=== PATIENT | male | born 1945 | race American Indian/Alaskan Native ===

== ENCOUNTER 2018-11-26 15:33 | Inpatient (IN) | payer OTHER ==
[2018-11-26 16:59] LABS: Hematocrit 42.5 % (35.5-45.6); Hemoglobin 14.6 gm/dl (11.8-15.2); Mean Corpuscular HGB Conc 34 % (32-34); Mean Corpuscular Volume 88 fl (84-94); Platelet Count 178 K/mm3 (140-440); Red Blood Count 4.81 M/mm3 (3.65-5.03); Red Cell Distribution Width 13.6 % (13.2-15.2)
[2018-11-26 17:24] LABS: Albumin 2.9 g/dL (3.9-5); Calcium 8.6 mg/dL (8.4-10.2)
--- NOTE | 2018-11-26 17:34 | Emergency Department Report ---
ED Abdominal Pain HPI - General Chief Complaint: Abdominal Pain Stated Complaint: ABDOMINAL PROBLEMS Time Seen by Provider: 11/26/18 16:25 Source: patient, family, old records reviewed (no previous record) Mode of arrival: Ambulatory Limitations: No Limitations - History of Present Illness Initial Comments: 73-year-old male with no known past medical history but he cannot remember the last time he has seen a doctor because he has "not been sick". He has had a swelling to his right lower quadrant for over one year. The last 2-3 weeks he is having worsening right lower quadrant pain that seems to be spreading to the left side. Patient states he is pain-free at this time and he is unable to elicit pain by movement or palpation. He denies nausea, vomiting, or fever. - Related Data Home Medications Medication Instructions Recorded Confirmed Last Taken No Known Home Medications [No 11/26/18 11/26/18 Unknown Reported Home Medications] Allergies Allergy/AdvReac Type Severity Reaction Status Date / Time No Known Allergies Allergy Unverified 11/26/18 15:35 ED Review of Systems ROS: Stated complaint: ABDOMINAL PROBLEMS Other details as noted in HPI Comment: All other systems reviewed and negative ED Past Medical Hx - Past Medical History Previous Medical History?: No - Surgical History Past Surgical History?: No - Social History Smoking Status: Never Smoker Substance Use Type: None - Medications Home Medications: Home Medications Medication Instructions Recorded Confirmed Last Taken Type No Known Home Medications [No 11/26/18 11/26/18 Unknown History Reported Home Medications] ED Physical Exam - General Limitations: No Limitations - Other Other exam information: General: No limitations, patient is alert in no acute distress Head exam: Atraumatic, normocephalic Eyes exam: Normal appearance ENT: Moist mucous membrane, normal oropharynx Neck exam: Normal inspection Respiratory exam: Clear to auscultation bilateral, no wheezes, rales, crackles Cardiovascular: Normal rate and rhythm, normal heart sounds Abdomen: Soft, nondistended, right inguinal hernia that is reducible and nontender to palpation, with normal bowel sounds, no rebound, or guarding Extremity: Full range of motion normal inspection no deformity Back: Normal Inspection, full range of motion, no tenderness Neurologic: Alert, oriented x3, cranial nerves intact, no motor or sensory deficit Psychiatric: normal affect, normal mood Skin: Warm, dry, intact ED Course Vital Signs 06/11/26/18 11/26/18 15:38 17:35 18:56 Temperature 97.9 F Pulse Rate 89 80 Respiratory 14 21 Rate Blood Pressure 138/93 168/77 [Left] O2 Sat by Pulse 98 100 100 Oximetry - Reevaluation(s) Reevaluation #1: 11/26/18 17:32 Patient has a reducible right inguinal hernia which was reduced prior to CT scan. However, hernia reoccurs when pressure is released. We are still awaiting urine collection. I reviewed CT and patient has a persistent inguinal hernia and appears to have a distended bladder. Patient continues to deny the supra pubic pain or feeling like he has to urinate. When questioned patient states he last urinated 2-3 days ago. Also noticed that patient has renal failure with elevated creatinine. There is instructed to place [facility] and documented urine output. Official CT report is pending. - Consultations Consultation #1: 11/26/18 18:25 case d/w Nephrology Dr Al. Consult ordered, will evaluate patient 11/26/18 18:30 case d/w Dr Meyer, informed pt to admitted, hernia appears reducible with residual fat herniation after Ed reduction attempt. Inhouse consult ordered. 11/26/18 18:31 Consult ordered for [facility] urology (Dr Doty's name place). Assess full placement of coud catheter with both obstructive diuresis. In-house consultation can be provided. Case was not discussed with [facility] in the ED ED Medical Decision Making - Lab Data Result diagrams: 11/26/18 16:45 11/26/18 16:45 - EKG Data -: EKG Interpreted by [facility] EKG shows normal: sinus rhythm Rate: normal - Radiology Data Radiology results: report reviewed PROCEDURE: CT ABDOMEN PELVIS WO CON TECHNIQUE: Computerized axial tomography of the abdomen and pelvis was performed without intravenous contrast. This study is performed without intravascular contrast material and its sensitivity for abdominal and pelvic pathology, including neoplasms, inflammation, abscess, free fluid, thrombosis, arterial dissection and infarction, is reduced compared with a contrast enhanced study. CT DOSE LENGTH PRODUCT: 945.4 mGycm HISTORY: right inguinal hernia COMPARISONS: None . FINDINGS: Visualized lower thorax: No significant abnormality. Liver: Normal size and attenuation. Spleen: Normal size and attenuation. Gallbladder and biliary system: Gallbladder is present. Pancreas: Normal. Adrenals: Normal. Kidneys: There is bilateral hydroureteronephrosis. Bilateral punctate renal calculi are present, measuring up to 2 mm in the right kidney and 5 mm in the left kidney. There is a 5 mm calculus in th e distal left ureter. GI tract: Moderate volume of stool seen throughout the colon. No bowel obstruction or acute inflammation. Lymph nodes and mesentery: Normal. Vasculature: Aortic atherosclerotic calcification. Bladder: Urinary bladder is significantly distended. Correlate for possible urinary bladder obstruction. Reproductive organs: Prostate gland measures up to 5.5 cm transverse. Peritoneum: No free fluid. Musculoskeletal structures: There are multilevel degenerative disc changes throughout the lumbar spine, particularly at L5-S1. There is depression of the superior endplate of L4, with linear lucency through the superior cortex, which may be acute. No displaced or retropulsed fragments are seen. Other: Right inguinal hernia containing mesenteric fat and a small amount of fluid. IMPRESSION: There is a right inguinal hernia, containing mesenteric fat and a small amount of fluid. Bilateral hydroureteronephrosis and bilateral renal calculi. 5 mm calculus in the distal left ureter. Urinary bladder is distended. Correlate for bladder outlet obstruction. Prostate gland appears prominent. Compression fracture involving the superior endplate of L4 may be acute. - Medical Decision Making pt likely has renal failure secondary to postobstructive uropathy. CT shows bilateral hydronephrosis and a large prostate and distended bladder and a left ureteral calculus. Patient does not have any signs or symptoms of renal colic at this time. Difficulty passing initial catheter but successful placement of a coud catheter. 2 L of initial urine output. Patient received albuterol, calcium, insulin, glucose, and sodium bicarbonate for hyperkalemia. 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 Chronic right able to hernia appears to be reducible without signs of obstruction at this time. In-house cons ultation with urology has been ordered. Hospitalist and foreign for admission. - Differential Diagnosis hernia, urinary obstruction Critical Care Time: No Critical care attestation.: If time is entered above; I have spent that time in minutes in the direct care of this critically ill patient, excluding procedure time. ED Disposition Clinical Impression: Obstructive uropathy, Urinary retention, Acute renal failure, Enlarged prostate, Left ureteral stone, Bilateral renal stones, Uremia, Hyperkalemia, Right inguinal hernia Disposition: -09 OP ADMIT IP TO THIS HOSP Is pt being admited?: Yes Condition: Stable Referrals: ELMIRA OSBORN MD [Primary Care Provider] - 3-5 Days Time of Disposition: 18:48 (Dr. Montenegro/hospitalist)
[2018-11-26] MEDS ORDERED: HumuLIN R IV ONE (17:52)
[2018-11-26] MEDS ORDERED: PROVENTIL IH ONE (17:53)
[2018-11-26] MEDS ORDERED: CALCIUM GLUCONATE 1,000 MG in NACL 0.9% 100 ML IV ONE (17:53)
[2018-11-26] MEDS ORDERED: D50W (25GM) Syringe IV ONE (18:00)
--- NOTE | 2018-11-26 18:10 | Cat Scan Report ---
PROCEDURE: CT ABDOMEN PELVIS WO CON TECHNIQUE: Computerized axial tomography of the abdomen and pelvis was performed without intravenous contrast. This study is performed without intravascular contrast material and its sensitivity for ab dominal and pelvic pathology, including neoplasms, inflammation, abscess, free fluid, thrombosis, art erial dissection and infarction, is reduced compared with a contrast enhanced study. CT DOSE LENGTH PRODUCT: 945.4 mGycm HISTORY: right inguinal hernia COMPARISONS: None . FINDINGS: Visualized lower thorax: No significant abnormality. Liver: Normal size and attenuation. Spleen: Normal size and attenuation. Gallbladder and biliary system: Gallbladder is present. Pancreas: Normal. Adrenals: Normal. Kidneys: There is bilateral hydroureteronephrosis. Bilateral punctate renal calculi are present, sienna uring up to 2 mm in the right kidney and 5 mm in the left kidney. There is a 5 mm calculus in the dis tamanna left ureter. GI tract: Moderate volume of stool seen throughout the colon. No bowel obstruction or acute inflamma tion. Lymph nodes and mesentery: Normal. Vasculature: Aortic atherosclerotic calcification. Bladder: Urinary bladder is significantly distended. Correlate for possible urinary bladder obstructi on. Reproductive organs: Prostate gland measures up to 5.5 cm transverse. Peritoneum: No free fluid. Musculoskeletal structures: There are multilevel degenerative disc changes throughout the lumbar spin e, particularly at L5-S1. There is depression of the superior endplate of L4, with linear lucency thr ough the superior cortex, which may be acute. No displaced or retropulsed fragments are seen. Other: Right inguinal hernia containing mesenteric fat and a small amount of fluid. IMPRESSION: There is a right inguinal hernia, containing mesenteric fat and a small amount of fluid. Bilateral hydroureteronephrosis and bilateral renal calculi. 5 mm calculus in the distal left ureter. Urinary bladder is distended. Correlate for bladder outlet obstruction. Prostate gland appears promi nent. Compression fracture involving the superior endplate of L4 may be acute. This document is electronically signed by Eloise Townsend MD., November 26 2018 06:08:27 PM ET
[2018-11-26 19:29] LABS: Bilirubin,Urine NEG (Negative); Blood,Urine MOD (Negative); Color,Urine Yellow (Yellow); Mucus,Urine FEW /HPF; Protein,Urine <15 mg/dL mg/dL (Negative); Urobilinogen,Urine < 2.0 mg/dL (<2.0)
[2018-11-26 19:31] LABS: WBC,Urine > 182.0 /HPF (0.0-6.0)
[2018-11-26] MEDS ORDERED: SODIUM CHLORIDE FLUSH SYRINGE 10 ML IV PRN (21:36)
[2018-11-26] MEDS ORDERED: ZOFRAN IV PRN (21:36)
[2018-11-26] MEDS ORDERED: TYLENOL PO PRN (21:36)
[2018-11-26] MEDS ORDERED: MORPHINE IV PRN (21:36)
--- NOTE | 2018-11-26 21:36 | History and Physical Report ---
History of Present Illness Date of examination: 11/26/18 Date of admission: 11/26/18 19:10 Medications and Allergies Allergies Allergy/AdvReac Type Severity Reaction Status Date / Time No Known Allergies Allergy Unverified 11/26/18 15:35 Home Medications Medication Instructions Recorded Confirmed Last Taken Type No Known Home Medications [No 11/26/18 11/26/18 Unknown History Reported Home Medications] Exam - Constitutional Vitals: Temp Pulse Resp BP Pulse Ox 97.9 F 80 21 168/77 100 11/26/18 15:38 11/26/18 17:35 11/26/18 17:35 11/26/18 17:35 11/26/18 18:56 Results - Labs CBC & Chem 7: 11/26/18 16:45 11/26/18 16:45 Labs: Laboratory Last Values WBC 7.6 K/mm3 (4.5-11.0) 11/26/18 16:45 RBC 4.81 M/mm3 (3.65-5.03) 11/26/18 16:45 Hgb 14.6 gm/dl (11.8-15.2) 11/26/18 16:45 Hct 42.5 % (35.5-45.6) 11/26/18 16:45 MCV 88 fl (84-94) 11/26/18 16:45 MCH 30 pg (28-32) 11/26/18 16:45 MCHC 34 % (32-34) 11/26/18 16:45 RDW 13.6 % (13.2-15.2) 11/26/18 16:45 Plt Count 178 K/mm3 (140-440) 11/26/18 16:45 Sodium 128 mmol/L (137-145) L 11/26/18 16:45 Potassium 5.9 mmol/L (3.6-5.0) H 11/26/18 16:45 Chloride 87.2 mmol/L (98-107) L 11/26/18 16:45 Carbon Dioxide 18 mmol/L (22-30) L 11/26/18 16:45 29 mmol/L 11/26/18 16:45 BUN 146 mg/dL (9-20) H 11/26/18 16:45 19.1 mg/dL (0.8-1.5) H 11/26/18 16:45 Estimated GFR 3 ml/min 11/26/18 16:45 8 % 11/26/18 16:45 Glucose 144 mg/dL (75-100) H 11/26/18 16:45 Calcium 8.6 mg/dL (8.4-10.2) 11/26/18 16:45 0.30 mg/dL (0.1-1.2) 11/26/18 16:45 AST 17 units/L (5-40) 11/26/18 16:45 ALT 38 units/L (7-56) 11/26/18 16:45 84 units/L (35-129) 11/26/18 16:45 6.8 g/dL (6.3-8.2) 11/26/18 16:45 2.9 g/dL (3.9-5) L 11/26/18 16:45 0.7 % 11/26/18 16:45 Yellow (Yellow) 11/26/18 18:55 Cloudy (Clear) 11/26/18 18:55 6.0 (5.0-7.0) 11/26/18 18:55 Ur Specific [place] 1.011 (1.003-1.030) 11/26/18 18:55 <15 mg/dl mg/dL (Negative) 11/26/18 18:55 Neg mg/dL (Negative) 11/26/18 18:55 Neg mg/dL (Negative) 11/26/18 18:55 Mod (Negative) 11/26/18 18:55 Neg (Negative) 11/26/18 18:55 Neg (Negative) 11/26/18 18:55 < 2.0 mg/dL (<2.0) 11/26/18 18:55 Ur Leukocyte Esterase Lg (Negative) 11/26/18 18:55 > 182.0 /HPF (0.0-6.0) H 11/26/18 18:55 45.0 /HPF (0.0-6.0) 11/26/18 18:55 Few /HPF 11/26/18 18:55
[2018-11-26] MEDS ORDERED: NACL 0.45% 1000 ML 1,000 ML IV SCH (22:00)
[2018-11-26] MEDS ORDERED: KIONEX PO ONE (22:33)
[2018-11-26 22:43] LABS: Calcium 8.9 mg/dL (8.4-10.2)
[2018-11-26] MEDS: SODIUM CHLORIDE FLUSH SYRINGE 10 ML IV SCH (23:22)
[2018-11-26] MEDS: NACL 0.9% 1000 ML 1,000 ML IV SCH (23:22)
[2018-11-27 00:59] LABS: Creatinine,Urine 86.7 mg/dL (0.1-20.0)
--- NOTE | 2018-11-27 06:52 | Event Note ---
Date: 11/26/18 See H/p in reports Acute renal failyre Obstructive uropathy Urinary retention
--- NOTE | 2018-11-27 07:22 | History and Physical Report ---
CHIEF COMPLAINT: 1. Abdominal pain for 2 days. 2. Did not pass urine for 2 days. HISTORY OF PRESENT ILLNESS: A 73-year-old male with no significant past medical history, comes in for abdominal pain of 2 days' duration and the patient did not pass any urine for 2 days. The patient is very nonchalant. The patient basically came for abdominal pain. The patient has not seen a physician in the last 20-30 years. No significant past medical history. PAST MEDICAL HISTORY: None. PAST SURGICAL HISTORY: None. SOCIAL HISTORY: Does not smoke, never seen a physician for the last 20-30 years. FAMILY HISTORY: Unavailable. REVIEW OF SYSTEMS: Significant for abdominal pain and abdominal distention and not passing urine for the last 48 hours. PHYSICAL EXAMINATION: GENERAL: Elderly male, cooperative during examination. VITAL SIGNS: Blood pressure 144/73, temperature 98, pulse is 84, respirations are 18. HEENT: Unremarkable. Pupils equal and reactive. NECK: Supple, no lymphadenopathy, no thyromegaly. LUNGS: Clear to auscultation and percussion. Good air entry. CARDIOVASCULAR: S1, S2 heard. No gallop, no murmur, no rub. Apical impulse in left fifth intercostal space and midclavicular line. ABDOMEN: Distended, especially in the suprapubic region. Bowel sounds are normal. EXTREMITIES: Good pedal pulses. No pedal edema. CENTRAL NERVOUS SYSTEM: Alert and oriented x 4, nonfocal exam. SKIN: Normal. LABORATORY DATA: CBC is normal. Electrolytes: Sodium is 128, potassium is 5.9, BUN and creatinine is 146 and 19.1, bicarbonate is 18, chloride is 87.2, AST is 17, ALT is 38. Urine shows wbc's more than 182. DIAGNOSTIC DATA: CAT scan of the belly shows right inguinal hernia, bilateral hydroureteronephrosis and bilateral renal calculi. Compression fracture involving the L4. ASSESSMENT AND PLAN: 1. Acute renal failure secondary to obstructive uropathy. The patient has bilateral hydronephrosis also. The patient had a coude catheter placed and about 1500 mL of urine was drained in the Emergency Room. Nephrology consult requested. IV fluid started. 2. Bilateral hydronephrosis secondary to obstruction, possible benign prostatic hypertrophy. Urology consulted. Coude catheter to be continued. 3. Hyperkalemia. Hyperkalemia treated in the Emergency Room. The patient may need emergent hemodialysis depending on the progress of the creatinine and BUN. 4. Hyponatremia secondary to volume overload. Should correct with diuresis. 5. Deep venous thrombosis prophylaxis, heparin 5000 q. 12. In summary, the patient has acute renal failure secondary to obstructive uropathy tertiary to BPH and also hyperkalemia. Nephrology consult and Urology consult requested. JOB# [id number] JACLYN/MIKEY BLOUNT
[2018-11-27] MEDS: ROCEPHIN/NS 1 GM/50 ML 1 GM/50 ML BAG IV SCH (08:10)
[2018-11-27 08:33] LABS: Basophils % (Auto) 0.1 % (0.0-1.8); Eosinophils % (Auto) 0.1 % (0.0-4.3); Hematocrit 38.8 % (35.5-45.6); Hemoglobin 13.6 gm/dl (11.8-15.2); Lymphocytes # (Auto) 0.7 K/mm3 (1.2-5.4); Lymphocytes % (Auto) 8.9 % (13.4-35.0); Mean Corpuscular HGB Conc 35 % (32-34); Mean Corpuscular Volume 87 fl (84-94); Monocytes % (Auto) 13.8 % (0.0-7.3); Platelet Count 202 K/mm3 (140-440); Red Blood Count 4.43 M/mm3 (3.65-5.03); Red Cell Distribution Width 13.6 % (13.2-15.2)
[2018-11-27 08:57] LABS: Albumin 2.7 g/dL (3.9-5); Calcium 8.5 mg/dL (8.4-10.2)
[2018-11-27] MEDS: SODIUM CHLORIDE FLUSH SYRINGE 10 ML IV SCH ×2 (08:59→21:14)
--- NOTE | 2018-11-27 09:30 | Consultation ---
History of Present Illness Consult date: 11/27/18 Reason for consult: hernia Requesting physician: TRINIDAD LAMBERT Chief complaint: RLQ pain - History of present illness History of present illness: 73yo M resented to the emergency room with right lower quadrant pain. Patient was found to have significant urinary obstruction and renal insufficiency. On CT scan patient was also found to have a large right inguinal hernia. It was easily reduced by the emergency department. Patient reports that he did not realize he had a hernia. It does not bother him. Denies any changes in appetite, nausea, vomiting. No change in bowel movements. Past History Past Medical History: No medical history Past Surgical History: No surgical history Social history: denies: smoking, alcohol abuse Family history: no significant family history Medications and Allergies Allergies Allergy/AdvReac Type Severity Reaction Status Date / Time No Known Allergies Allergy Unverified 11/26/18 15:35 Home Medications Medication Instructions Recorded Confirmed Last Taken Type No Known Home Medications [No 11/26/18 11/26/18 Unknown History Reported Home Medications] Active Meds: Active Medications Acetaminophen (Tylenol) 650 mg PO Q4H PRN PRN Reason: Pain MILD(1-3)/Fever >100.5/MAYEN Sodium Chloride (Nacl 0.9% 1000 Ml) 1,000 mls @ 75 mls/hr IV DIRECT [facility] Last Admin: 11/26/18 23:22 Dose: 75 mls/hr Documented by: Ceftriaxone Sodium (Rocephin/Ns 1 Gm/50 Ml) 1 gm in 50 mls @ 100 mls/hr IV Q24HR DIPIKA; Protocol Last Admin: 11/27/18 08:10 Dose: 100 mls/hr Documented by: Morphine Sulfate (Morphine) 2 mg IV Q4H PRN PRN Reason: Pain, Moderate (4-6) Ondansetron HCl (Zofran) 4 mg IV Q8H PRN PRN Reason: Nausea And Vomiting Sodium Chloride (Sodium Chloride Flush Syringe 10 Ml) 10 ml IV BID [facility] Last Admin: 11/27/18 08:59 Dose: Not Given Documented by: Sodium Chloride (Sodium Chloride Flush Syringe 10 Ml) 10 ml IV PRN PRN PRN Reason: LINE FLUSH Review of Systems - Constitutional chronic pain (RLQ), no fever, no chills - Cardiovascular no chest pain, no shortness of breath - Respiratory no cough - Gastrointestinal abdominal pain (RLQ), no nausea, no vomiting, no change in bowel habits, no dyspepsia/bloating - Genitourinary no dysuria - Muskuloskeletal no low back pain Exam Vital Signs Temp Pulse Resp BP Pulse Ox 97.9 F 89 14 138/93 98 11/26/18 15:38 11/26/18 15:38 11/26/18 15:38 11/26/18 15:38 11/26/18 15:38 - General physical appearance Positive: no distress, no pain, other (very pleasant elderly gentleman) - Eyes Positive: normal occular movement - Respiratory Positive: normal expansion, normal respiratory effort, clear to auscultation - Cardiovascular Rhythm: regular - Abdomen Abdomen: Present: soft. Absent: tender, distended, guarding, rigid, wound, surgical scars Hernia: inguinal (right - extends into scrotum. Reducible. Nontender. No skin changes) - Genitourinary Male Genitourinary: right inguinal hernia - Integumentary no rash, no growths, no abnormal pigmentation - Neurologic Neurologic: alert and oriented to time, place and person - Psychiatric Psychiatric: appropriate mood/affect, intact judgment & insight, cooperative Results - Labs 11/27/18 08:20 11/27/18 08:20 Abnormal lab results 11/26/18 11/26/18 11/26/18 Range/Units 16:45 18:55 21:59 MCHC (32-34) % Lymph % (Auto) (13.4-35.0) % [place] % (Auto) (0.0-7.3) % Lymph # (1.2-5.4) K/mm3 [place] # (0.0-0.8) K/mm3 Seg Neutrophils % (40.0-70.0) % Sodium 128 L 131 L (137-145) mmol/L Potassium 5.9 H 5.5 H (3.6-5.0) mmol/L Chloride 87.2 L 90.9 L (98-107) mmol/L Carbon Dioxide 18 L 19 L (22-30) mmol/L BUN 146 H 131 H (9-20) mg/dL Creatinine 19.1 H 15.2 H (0.8-1.5) mg/dL Glucose 144 H 167 H (75-100) mg/dL Albumin 2.9 L (3.9-5) g/dL Urine WBC (Auto) > 182.0 H (0.0-6.0) /HPF Urine Creatinine (0.1-20.0) mg/dL 11/26/18 11/27/18 11/27/18 Range/Units 23:55 08:20 08:20 MCHC 35 H (32-34) % Lymph % (Auto) 8.9 L (13.4-35.0) % [place] % (Auto) 13.8 H (0.0-7.3) % Lymph # 0.7 L (1.2-5.4) K/mm3 [place] # 1.0 H (0.0-0.8) K/mm3 Seg Neutrophils % 77.1 H (40.0-70.0) % Sodium (137-145) mmol/L Potassium (3.6-5.0) mmol/L Chloride (98-107) mmol/L Carbon Dioxide (22-30) mmol/L BUN 80 H (9-20) mg/dL Creatinine 6.7 H D (0.8-1.5) mg/dL Glucose 113 H (75-100) mg/dL Albumin 2.7 L (3.9-5) g/dL Urine WBC (Auto) (0.0-6.0) /HPF Urine Creatinine 86.7 H (0.1-20.0) mg/dL Diabetes panel 11/26/18 11/26/18 11/27/18 Range/Units 16:45 21:59 08:20 Sodium 128 L 131 L 139 D (137-145) mmol/L Potassium 5.9 H 5.5 H 4.8 (3.6-5.0) mmol/L Chloride 87.2 L 90.9 L 101.7 (98-107) mmol/L Carbon Dioxide 18 L 19 L 23 (22-30) mmol/L BUN 146 H 131 H 80 H (9-20) mg/dL Creatinine 19.1 H 15.2 H 6.7 H D (0.8-1.5) mg/dL Glucose 144 H 167 H 113 H (75-100) mg/dL Calcium 8.6 8.9 8.5 (8.4-10.2) mg/dL AST 17 16 (5-40) units/L ALT 38 33 (7-56) units/L Alkaline Phosphatase 84 76 (35-129) units/L Total Protein 6.8 6.6 (6.3-8.2) g/dL Albumin 2.9 L 2.7 L (3.9-5) g/dL Calcium panel 11/26/18 11/26/18 11/27/18 Range/Units 16:45 21:59 08:20 Calcium 8.6 8.9 8.5 (8.4-10.2) mg/dL Albumin 2.9 L 2.7 L (3.9-5) g/dL Pituitary panel 11/26/18 11/26/18 11/27/18 Range/Units 16:45 21:59 08:20 Sodium 128 L 131 L 139 D (137-145) mmol/L Potassium 5.9 H 5.5 H 4.8 (3.6-5.0) mmol/L Chloride 87.2 L 90.9 L 101.7 (98-107) mmol/L Carbon Dioxide 18 L 19 L 23 (22-30) mmol/L BUN 146 H 131 H 80 H (9-20) mg/dL Creatinine 19.1 H 15.2 H 6.7 H D (0.8-1.5) mg/dL Glucose 144 H 167 H 113 H (75-100) mg/dL Calcium 8.6 8.9 8.5 (8.4-10.2) mg/dL Adrenal panel 11/26/18 11/26/18 11/27/18 Range/Units 16:45 21:59 08:20 Sodium 128 L 131 L 139 D (137-145) mmol/L Potassium 5.9 H 5.5 H 4.8 (3.6-5.0) mmol/L Chloride 87.2 L 90.9 L 101.7 (98-107) mmol/L Carbon Dioxide 18 L 19 L 23 (22-30) mmol/L BUN 146 H 131 H 80 H (9-20) mg/dL Creatinine 19.1 H 15.2 H 6.7 H D (0.8-1.5) mg/dL Glucose 144 H 167 H 113 H (75-100) mg/dL Calcium 8.6 8.9 8.5 (8.4-10.2) mg/dL Total Bilirubin 0.30 0.40 (0.1-1.2) mg/dL AST 17 16 (5-40) units/L ALT 38 33 (7-56) units/L Alkaline Phosphatase 84 76 (35-129) units/L Total Protein 6.8 6.6 (6.3-8.2) g/dL Albumin 2.9 L 2.7 L (3.9-5) g/dL - Imaging CT scan - abdomen: report reviewed, image reviewed CT scan - pelvis: report reviewed, image reviewed Assessment and Plan - Patient Problems (1) Right inguinal hernia Current Visit: Yes Status: Acute Plan to address problem: Patient is stable. He has an asymptomatic, easily reducible right inguinal hernia. Does not require intervention during this admission. He may follow up in the office to be scheduled for an elective repair. Please call with questions Time=30min
--- NOTE | 2018-11-27 09:56 | Consultation ---
History of Present Illness - Reason for Consult Consult date: 11/27/18 acute renal failure, hyperkalemia - History of Present Illness The patient is a 73 YO male with no known past medical history who hasn't seen a physician in several decades presented to [facility] ED with pain and discomfort over the right lower quadrant abdomen for the past 2-3 weeks. The symptoms got worse for 2-3 days. He also admits not able to urinate for 1-2 days. Patient is a poor historian. He denies any nausea, vomiting, fever, chills, cp, sob, dizziness, leg swelling or weakness. Hew as found to have creatinine of 19, K 5.[address] abdomen showed prominent prostate and bilateral hydroureteronephrosis. Hillman drained about 2 Lts of urine. Admitted for further evaluation. Nephrology was consulted for further evaluation. Past History Past Medical History: No medical history Medications and Allergies Allergies Allergy/AdvReac Type Severity Reaction Status Date / Time No Known Allergies Allergy Unverified 11/26/18 15:35 Home Medications Medication Instructions Recorded Confirmed Last Taken Type No Known Home Medications [No 11/26/18 11/26/18 Unknown History Reported Home Medications] Active Meds: Active Medications Acetaminophen (Tylenol) 650 mg PO Q4H PRN PRN Reason: Pain MILD(1-3)/Fever >100.5/MAYEN Sodium Chloride (Nacl 0.9% 1000 Ml) 1,000 mls @ 75 mls/hr IV DIRECT [facility] Last Admin: 11/26/18 23:22 Dose: 75 mls/hr Documented by: Ceftriaxone Sodium (Rocephin/Ns 1 Gm/50 Ml) 1 gm in 50 mls @ 100 mls/hr IV Q24HR [facility]; Protocol Last Admin: 11/27/18 08:10 Dose: 100 mls/hr Documented by: Morphine Sulfate (Morphine) 2 mg IV Q4H PRN PRN Reason: Pain, Moderate (4-6) Ondansetron HCl (Zofran) 4 mg IV Q8H PRN PRN Reason: Nausea And Vomiting Sodium Chloride (Sodium Chloride Flush Syringe 10 Ml) 10 ml IV BID [facility] Last Admin: 11/27/18 08:59 Dose: Not Given Documented by: Sodium Chloride (Sodium Chloride Flush Syringe 10 Ml) 10 ml IV PRN PRN PRN Reason: LINE FLUSH Review of Systems Constitutional: no weight loss, no weight gain, no fever, no chills, no anorexia, no fatigue, no weakness, no poor appetite Ears, nose, mouth and throat: no epistaxis Cardiovascular: no chest pain, no orthopnea, no edema, no syncope, no lightheadedness, no shortness of breath, no high blood pressure, no leg edema Respiratory: no cough, no hemoptysis, no shortness of breath, no dyspnea on exertion Gastrointestinal: abdominal pain, no nausea, no vomiting, no diarrhea, no melena, no jaundice Genitourinary Male: urinary retention, no dysuria, no hematuria Rectal: no bleeding Musculoskeletal: no muscle weakness, no muscle cramps Integumentary: no rash, no pruritis, no wounds, no jaundice Neurological: no seizures, no syncope, no convulsions, no aphasia, no change in speech Exam - Vital Signs Vital signs: Vital Signs Temp Pulse Resp BP Pulse Ox 97.9 F 89 14 138/93 98 11/26/18 15:38 11/26/18 15:38 11/26/18 15:38 11/26/18 15:38 11/26/18 15:38 - General Appearance General appearance: well-developed, appears stated age, other (no distress) EENT: ATNC, PERRL, mucous membranes dry, hearing intact, vision intact Neck: Present: neck supple, trachea midline Respiratory: Clear to Ascultation Heart: regular, S1S2, no murmurs Gastrointestinal: Present: normoactive bowel sounds. Absent: tenderness, distended Integumentary: no rash, warm and dry Neurologic: no focal deficit, no asterixis Musculoskeletal: Present: other (no edema) Psychiatric: cooperative Results - Lab Results 11/27/18 08:20 11/27/18 08:20 Most recent lab results Calcium 8.5 mg/dL (8.4-10.2) 11/27/18 08:20 86.7 mg/dL (0.1-20.0) H 11/26/18 23:55 61 mmol/L 11/26/18 23:55 - Image Kidney/bladder ultrasound: other Assessment and Plan 1. Acute kidney injury: ERA in the setting of obstructive uropathy. S/p hillman catheter. Renal function is improving. Monitor renal function. Avoid nephrotoxic agents. Meds dosage based on GFR. 2. FEN: Hyperkalemia, improved. Metabolic acidosis, improved. Continue IV fluids. Monitor lytes. 3. Bladder outlet obstruction: Enlarged prostate with elevated PSA. S/p Hillman catheter. Followed by Urologist. 4. UTI: Continue Ceftriaxone. 5. Right inguinal hernia: Gen. surgery recommend outpatient follow-up.
--- NOTE | 2018-11-27 13:36 | Progress Note ---
Assessment and Plan dictated manuelito maysey hernia huge Subjective Date of service: 11/27/18 Principal diagnosis: urinary retention sliding R hernia Objective - Constitutional Vitals: Vital Signs - 12hr 11/27/18 11/27/18 11/27/18 02:56 07:12 09:26 Temperature 98.3 F 98.0 F Pulse Rate 81 79 96 H Pulse Rate [ From Monitor] Respiratory 20 18 Rate Blood Pressure 158/81 143/75 O2 Sat by Pulse 97 98 Oximetry 11/27/18 09:36 Temperature Pulse Rate Pulse Rate [ 79 From Monitor] Respiratory 18 Rate Blood Pressure O2 Sat by Pulse 98 Oximetry General appearance: Present: no acute distress - Neck Neck: supple - Respiratory Respiratory effort: normal Extremities: no ischemia - Gastrointestinal General gastrointestinal: Present: soft, non-tender, hernia Rectal Exam: nodular - Genitourinary Male genitourinary: right inguinal hernia - Labs CBC & Chem 7: 11/27/18 08:20 11/27/18 08:20 Labs: Abnormal lab results 11/26/18 11/26/18 11/26/18 Range/Units 16:45 18:55 21:59 MCHC (32-34) % Lymph % (Auto) (13.4-35.0) % [place] % (Auto) (0.0-7.3) % Lymph # (1.2-5.4) K/mm3 [place] # (0.0-0.8) K/mm3 Seg Neutrophils % (40.0-70.0) % Sodium 128 L 131 L (137-145) mmol/L Potassium 5.9 H 5.5 H (3.6-5.0) mmol/L Chloride 87.2 L 90.9 L (98-107) mmol/L Carbon Dioxide 18 L 19 L (22-30) mmol/L BUN 146 H 131 H (9-20) mg/dL Creatinine 19.1 H 15.2 H (0.8-1.5) mg/dL Glucose 144 H 167 H (75-100) mg/dL Albumin 2.9 L (3.9-5) g/dL Urine WBC (Auto) > 182.0 H (0.0-6.0) /HPF Urine Creatinine (0.1-20.0) mg/dL 06/18/19 06/19/19 06/19/19 Range/Units 23:55 08:20 08:20 MCHC 35 H (32-34) % Lymph % (Auto) 8.9 L (13.4-35.0) % [place] % (Auto) 13.8 H (0.0-7.3) % Lymph # 0.7 L (1.2-5.4) K/mm3 [place] # 1.0 H (0.0-0.8) K/mm3 Seg Neutrophils % 77.1 H (40.0-70.0) % Sodium (137-145) mmol/L Potassium (3.6-5.0) mmol/L Chloride (98-107) mmol/L Carbon Dioxide (22-30) mmol/L BUN 80 H (9-20) mg/dL Creatinine 6.7 H D (0.8-1.5) mg/dL Glucose 113 H (75-100) mg/dL Albumin 2.7 L (3.9-5) g/dL Urine WBC (Auto) (0.0-6.0) /HPF Urine Creatinine 86.7 H (0.1-20.0) mg/dL Medications & Allergies - Medications Allergies/Adverse Reactions: Allergies No Known Allergies Allergy (Unverified 11/26/18 15:35) Home Medications: Home Medications Medication Instructions Recorded Confirmed Last Taken Type No Known Home Medications [No 11/26/18 11/26/18 Unknown History Reported Home Medications] Active Medications: Generic Name Dose Route Start Last Admin Trade Name Freq PRN Reason Stop Dose Admin Acetaminophen 650 mg 11/26/18 21:36 Tylenol PO Q4H PRN Pain MILD(1-3)/Fever >100.5/MAYEN Sodium Chloride 1,000 mls @ 75 mls/hr 11/26/18 23:00 11/26/18 23:22 Nacl 0.9% 1000 Ml IV 75 mls/hr DIRECT DIPIKA Administration Ceftriaxone Sodium 1 gm in 50 mls @ 100 mls/hr 11/27/18 08:30 11/27/18 08:10 Rocephin/Ns 1 Gm/50 Ml IV 100 mls/hr Q24HR DIPIKA Administration Protocol Morphine Sulfate 2 mg 11/26/18 21:36 Morphine IV Q4H PRN Pain, Moderate (4-6) Ondansetron HCl 4 mg 11/26/18 21:36 Zofran IV Q8H PRN Nausea And Vomiting Sodium Chloride 10 ml 11/26/18 22:00 11/27/18 08:59 Sodium Chloride Flush Syringe 10 Ml IV Not Given BID DIPIKA Sodium Chloride 10 ml 11/26/18 21:36 Sodium Chloride Flush Syringe 10 Ml IV PRN PRN LINE FLUSH
--- NOTE | 2018-11-27 14:10 | Progress Note ---
Assessment and Plan Assessment and plan: Acute renal failure Bilateral hydronephrosis Non-obstructive ureteric calculi Obstructive uropathy - Patient was catheterized in the ED and drained about 2 L of urine, continue with hillman catheter - Patient's BUN/creatinine trended down markedly - Urology consulted and recommendations appreciated - Nephrology consult appreciated Reducible right inguinal hernia - Asymptomatic, Gen. surgery consulted and recommend outpatient follow-up UTI - Continue Rocephin DVT prophylaxis -Heparin Disposition -Continue patient care, follow BMP. History Interval history: Patient was seen and evaluated to this morning, patient didn't have any complaints. Hospitalist Physical - Physical exam Narrative exam: Not in cardiopulmonary distress. The patient appeared well nourished and normally developed. Vital signs as documented. Head exam is unremarkable. No scleral icterus . Neck is without jugular venous distension, thyromegaly, or carotid bruits. Lungs are clear to auscultation. Cardiac exam reveals regular rate and Rhythm. Abdominal exam reveals normal bowel sounds, no masses, no organomegaly and no aortic enlargement. Extremities are nonedematous and both femoral and pedal pulses are normal. 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 No focal weakness. - Constitutional Vitals: Temp Pulse Resp BP Pulse Ox 98.0 F 79 18 143/75 98 11/27/18 07:12 11/27/18 09:36 11/27/18 09:36 11/27/18 07:12 11/27/18 09:36 General appearance: Present: no acute distress Results - Labs CBC & Chem 7: 11/27/18 08:20 11/27/18 08:20 Labs: Laboratory Last Values WBC 7.5 K/mm3 (4.5-11.0) 11/27/18 08:20 RBC 4.43 M/mm3 (3.65-5.03) 11/27/18 08:20 Hgb 13.6 gm/dl (11.8-15.2) 11/27/18 08:20 Hct 38.8 % (35.5-45.6) 11/27/18 08:20 MCV 87 fl (84-94) 11/27/18 08:20 MCH 31 pg (28-32) 11/27/18 08:20 MCHC 35 % (32-34) H 11/27/18 08:20 RDW 13.6 % (13.2-15.2) 11/27/18 08:20 Plt Count 202 K/mm3 (140-440) 11/27/18 08:20 Lymph % (Auto) 8.9 % (13.4-35.0) L 11/27/18 08:20 [place] % (Auto) 13.8 % (0.0-7.3) H 11/27/18 08:20 Eos % (Auto) 0.1 % (0.0-4.3) 11/27/18 08:20 Baso % (Auto) 0.1 % (0.0-1.8) 11/27/18 08:20 Lymph # 0.7 K/mm3 (1.2-5.4) L 11/27/18 08:20 [place] # 1.0 K/mm3 (0.0-0.8) H 11/27/18 08:20 Eos # 0.0 K/mm3 (0.0-0.4) 11/27/18 08:20 Baso # 0.0 K/mm3 (0.0-0.1) 11/27/18 08:20 Seg Neutrophils % 77.1 % (40.0-70.0) H 11/27/18 08:20 Seg Neutrophils # 5.7 K/mm3 (1.8-7.7) 11/27/18 08:20 Sodium 139 mmol/L (137-145) D 11/27/18 08:20 Potassium 4.8 mmol/L (3.6-5.0) 11/27/18 08:20 Chloride 101.7 mmol/L (98-107) 11/27/18 08:20 Carbon Dioxide 23 mmol/L (22-30) 11/27/18 08:20 19 mmol/L 11/27/18 08:20 BUN 80 mg/dL (9-20) H 11/27/18 08:20 6.7 mg/dL (0.8-1.5) H D 11/27/18 08:20 Estimated GFR 10 ml/min 11/27/18 08:20 12 % 11/27/18 08:20 Glucose 113 mg/dL (75-100) H 11/27/18 08:20 Calcium 8.5 mg/dL (8.4-10.2) 11/27/18 08:20 0.40 mg/dL (0.1-1.2) 11/27/18 08:20 AST 16 units/L (5-40) 11/27/18 08:20 ALT 33 units/L (7-56) 11/27/18 08:20 76 units/L (35-129) 11/27/18 08:20 6.6 g/dL (6.3-8.2) 11/27/18 08:20 2.7 g/dL (3.9-5) L 11/27/18 08:20 0.7 % 11/27/18 08:20 Yellow (Yellow) 11/26/18 18:55 Cloudy (Clear) 11/26/18 18:55 6.0 (5.0-7.0) 11/26/18 18:55 Ur Specific [place] 1.011 (1.003-1.030) 11/26/18 18:55 <15 mg/dl mg/dL (Negative) 11/26/18 18:55 Neg mg/dL (Negative) 11/26/18 18:55 Neg mg/dL (Negative) 11/26/18 18:55 Mod (Negative) 11/26/18 18:55 Neg (Negative) 11/26/18 18:55 Neg (Negative) 11/26/18 18:55 < 2.0 mg/dL (<2.0) 11/26/18 18:55 Ur Leukocyte Esterase Lg (Negative) 11/26/18 18:55 > 182.0 /HPF (0.0-6.0) H 11/26/18 18:55 45.0 /HPF (0.0-6.0) 11/26/18 18:55 Few /HPF 11/26/18 18:55 86.7 mg/dL (0.1-20.0) H 11/26/18 23:55 61 mmol/L 11/26/18 23:55 Active Medications - Current Medications Current Medications: Generic Name Dose Route Start Last Admin Trade Name Freq PRN Reason Stop Dose Admin Acetaminophen 650 mg 11/26/18 21:36 Tylenol PO Q4H PRN Pain MILD(1-3)/Fever >100.5/MAYEN Sodium Chloride 1,000 mls @ 75 mls/hr 11/26/18 23:00 11/26/18 23:22 Nacl 0.9% 1000 Ml IV 75 mls/hr DIRECT DIPIKA Administration Ceftriaxone Sodium 1 gm in 50 mls @ 100 mls/hr 11/27/18 08:30 11/27/18 08:10 Rocephin/Ns 1 Gm/50 Ml IV 100 mls/hr Q24HR DIPIKA Administration Protocol Morphine Sulfate 2 mg 11/26/18 21:36 Morphine IV Q4H PRN Pain, Moderate (4-6) Ondansetron HCl 4 mg 11/26/18 21:36 Zofran IV Q8H PRN Nausea And Vomiting Sodium Chloride 10 ml 11/26/18 22:00 11/27/18 08:59 Sodium Chloride Flush Syringe 10 Ml IV Not Given BID DIPIKA Sodium Chloride 10 ml 11/26/18 21:36 Sodium Chloride Flush Syringe 10 Ml IV PRN PRN LINE FLUSH
[2018-11-27] MEDS: NACL 0.9% 1000 ML 1,000 ML IV SCH (15:43)
[2018-11-27] MEDS: HEPARIN SUB-Q SCH (21:14)
--- NOTE | 2018-11-28 01:31 | Consultation ---
HISTORY OF PRESENT ILLNESS: The patient is a 73-year-old gentleman who has not been followed medically for quite some time. He has no medical history. Came in with abdominal pain, was in retention and has a ureteral stone as well. No fevers or chills. His creatinine was 19. He has no pain and a large chronic right sliding inguinal hernia. PAST MEDICAL HISTORY: Negative known. PAST SURGICAL HISTORY: Denies any prostate issues. SOCIAL HISTORY: Noncontributory. FAMILY HISTORY: Negative. REVIEW OF SYSTEMS: No pain, no CVA tenderness, no hematuria. PHYSICAL EXAMINATION: GENERAL: He is awake. He is in no distress. Clarke is draining clear urine. ABDOMEN: Soft, nondistended with a huge sliding hernia, reducible. GENITALIA: Testes descended bilaterally. Circumcised. Normal testis, but on the right side, surrounded by this hernia. RECTAL: Digital rectal exam shows a nodular prostate, small, 15 grams. IMPRESSION: Nodular prostate ureteral stone, distal ureter. Based on the CT scan, he has bilateral hydronephrosis. Creatinine is coming down to under 7 now from 19. He has got a 5 mm stone in distal ureter. We can take that up preferably, which should allow his renal function to get better and it is improving daily and he could have an ureteroscopy if needed, but he has never had flank pain. He is being treated for retention and with Rocephin. PLAN: Will be allowed the creatinine to get normal. Possible ureteroscopy if needed versus allowing him to pass the stone, I would leave the Clarke catheter until we are finished with any type of manipulation. He can go home with a Clarke. He may require ureteroscopy if he develops pain, fever or chills. JOB# [id number] NORI/MIKEY
[2018-11-28] MEDS: NACL 0.9% 1000 ML 1,000 ML IV SCH (04:47)
[2018-11-28] MEDS: HEPARIN SUB-Q SCH (05:12)
[2018-11-28 06:31] LABS: Calcium 8.1 mg/dL (8.4-10.2)
[2018-11-28 08:59] VITALS: BP 159/77
[2018-11-28] MEDS: ROCEPHIN/NS 1 GM/50 ML 1 GM/50 ML BAG IV SCH (08:59)
[2018-11-28] MEDS ORDERED: APRESOLINE IV SCH (09:00)
[2018-11-28] MEDS ORDERED: APRESOLINE IV PRN (09:00)
[2018-11-28] MEDS: SODIUM CHLORIDE FLUSH SYRINGE 10 ML IV SCH (09:01)
--- NOTE | 2018-11-28 09:27 | Discharge Summary ---
Providers - Providers Date of Admission: 11/26/18 19:10 Attending physician: GANESH SARAH MD 11/26/18 Consult to Case Management [CONS] Routine Services Needed at Discharge: Home Health Services Notified:: Marilee Phone number called:: [phone] Was contact made?: Yes If yes, spoke with:: Marilee Time called:: 10:20 11/26/18 18:25 Consult to Physician [CONS] Urgent Comment: NORIS Consulting Provider: ADRIENNE ENGLE Physician Instructions: CONSULT WAS CALLED TO . Reason For Exam: acute renal failure 11/26/18 18:27 Consult to Physician [CONS] Urgent Comment: NORIS Consulting Provider: XIOMARA AMBROSIO Physician Instructions: ,WAS NOTIFIED/ZAINAB Reason For Exam: right inguinal hernia 11/26/18 18:29 Consult to Physician [CONS] Urgent Comment: NORIS Consulting Provider: KRISTA PRADO Physician Instructions: LEFT MESSAGE FOR [phone] Reason For Exam: obstructive uropathy 11/27/18 08:54 Physical Therapy Evaluation and Treat [CONS] Routine Comment: Reason For Exam: Weakness [facility] Reason for admission: Acute renal failure, hydronephrosis, right inguinal hernia, UTI Condition: Stable Pertinent studies: CT abdomen and pelvis Hospital course: The patient is a 73 YO male with no known past medical history who hasn't seen a physician in several decades presented to [facility] ED with pain and discomfort over the right lower quadrant abdomen for the past 2-3 weeks. The symptoms got worse for 2-3 days. He also admits not able to urinate for 1-2 days. Patient is a poor historian. He denies any nausea, vomiting, fever, chills, cp, sob, dizziness, leg swelling or weakness. Hew as found to have creatinine of 19, K 5.[address] abdomen showed prominent prostate, bilateral hydroureteronephrosis, reducible big right inguinal hernia. Hillman drained about 2 Lts of urine. Admitted for further evaluation. Nephrology was consulted for further evaluation. Patient was admitted to the floor and was given IVF and cr markedly trended down to 1.7. Urology consulted and recommend to discharge him with hillman catheter and follow at [facility] in the office. General surgery was consulted and recommend to follow up in the office for hernia repair. patient was treated for UTI. patient discharged home in a stable condition. Disposition: DC-01 TO HOME OR SELFCARE Time spent for discharge: 32 minutes - Discharge Diagnoses (1) Acute renal failure Status: Acute (2) Bilateral renal stones Status: Acute (3) Enlarged prostate Status: Acute (4) Hyperkalemia Status: Acute (5) Left ureteral stone Status: Acute (6) Obstructive uropathy Status: Acute (7) Right inguinal hernia Status: Acute (8) Uremia Status: Acute (9) Urinary retention Status: Acute Core Measure Documentation - Palliative Care Palliative Care/ Comfort Measures: Not Applicable - Core Measures Any of the following diagnoses?: none Exam - Physical Exam Narrative exam: Not in cardiopulmonary distress. The patient appeared well nourished and normally developed. Vital signs as documented. Head exam is unremarkable. No scleral icterus . Neck is without jugular venous distension, thyromegaly, or carotid bruits. Lungs are clear to auscultation. Cardiac exam reveals regular rate and Rhythm. Abdominal exam reveals normal bowel sounds, no masses, no organomegaly and no aortic enlargement. Extremities are nonedematous and both femoral and pedal pulses are normal. 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 No focal weakness. - Constitutional Vitals: Temp Pulse Resp BP Pulse Ox 99.2 F 98 H 18 159/77 96 11/28/18 07:31 11/28/18 08:59 11/28/18 07:31 11/28/18 08:59 11/28/18 07:31 Plan Activity: no restrictions Weight Bearing Status: Full Weight Bearing Diet: low salt Follow up with: ELMIRA OSBORN MD [Primary Care Provider] - 3-5 Days XIOMARA AMBROSIO MD [Staff Physician] - 10 Days VIJAY ANDRE MD [Staff Physician] - 7 Days Prescriptions: cephALEXin [Keflex] 500 mg PO Q8HR #15 cap amLODIPine [Norvasc] 10 mg PO DAILY #30 tab
--- NOTE | 2018-11-28 09:27 | Progress Note ---
Assessment and Plan 1. Acute kidney injury: ERA in the setting of obstructive uropathy. S/p hillman catheter. Renal function is much better. Monitor renal function. Avoid nephrotoxic agents. Meds dosage based on GFR. 2. FEN: Hyperkalemia, improved. Metabolic acidosis, improved. Continue IV fluids. Monitor lytes. 3. Bladder outlet obstruction: Enlarged prostate with elevated PSA. S/p Hillman catheter. Followed by Urologist. 4. UTI: On Ceftriaxone. 5. Right inguinal hernia: Gen. surgery recommended outpatient follow-up. Subjective Date of service: 11/28/18 Principal diagnosis: urinary retention sliding R hernia Interval history: Patient was seen and examined at the bedside. Objective - Vital Signs Vital signs: Vital Signs - 12hr 11/27/18 11/28/18 11/28/18 22:00 02:04 06:16 Temperature 98.8 F Pulse Rate 76 73 Pulse Rate [ 77 From Monitor] Respiratory 17 16 Rate Blood Pressure 158/72 O2 Sat by Pulse 99 96 Oximetry 11/28/18 11/28/18 11/28/18 07:31 08:43 08:59 Temperature 99.2 F Pulse Rate 81 88 98 H Pulse Rate [ From Monitor] Respiratory 18 Rate Blood Pressure 188/90 194/91 159/77 O2 Sat by Pulse 96 Oximetry - General Appearance General appearance: well-developed, appears stated age, other (no distress) EENT: ATNC, PERRL, hearing intact, vision intact Neck: supple Respiratory: Present: Clear to Ascultation Cardiology: regular, S1S2, no murmurs Gastrointestinal: normoactive bowel sounds, no tenderness, no distended, other (Hillman catheter with clear urine) Integumentary: no rash, warm and dry Neurologic: no focal deficit, no asterixis Musculoskeletal: other (no edema) Psychiatric: cooperative - Lab 11/27/18 08:20 11/28/18 05:18 Most recent lab results Calcium 8.1 mg/dL (8.4-10.2) L 11/28/18 05:18 Phosphorus 3.00 mg/dL (2.5-4.5) 11/28/18 05:18 Magnesium 1.90 mg/dL (1.7-2.3) 11/28/18 05:18 86.7 mg/dL (0.1-20.0) H 11/26/18 23:55 61 mmol/L 11/26/18 23:55 Medications & Allergies - Medications Allergies/Adverse Reactions: Allergies No Known Allergies Allergy (Unverified 11/26/18 15:35) Home Medications: Home Medications Medication Instructions Recorded Confirmed Last Taken Type amLODIPine [Norvasc] 10 mg PO DAILY #30 tab 11/28/18 Unknown Rx cephALEXin [Keflex] 500 mg PO Q8HR #15 cap 11/28/18 Unknown Rx Active Medications: Generic Name Dose Route Start Last Admin Trade Name Freq PRN Reason Stop Dose Admin Acetaminophen 650 mg 11/26/18 21:36 Tylenol PO Q4H PRN Pain MILD(1-3)/Fever >100.5/MAYEN Amlodipine Besylate 10 mg 11/28/18 10:00 11/28/18 08:59 Norvasc PO 10 mg QDAY DIPIKA Administration Heparin Sodium (Porcine) 5,000 unit 11/27/18 22:00 11/28/18 05:12 Heparin SUB-Q 5,000 unit Q8HR DIPIKA Administration Hydralazine HCl 10 mg 11/28/18 09:00 11/28/18 08:43 Apresoline IV 10 mg Q4H PRN Administration BP > 160 Sodium Chloride 1,000 mls @ 75 mls/hr 11/26/18 23:00 11/28/18 04:47 Nacl 0.9% 1000 Ml IV 75 mls/hr DIRECT DIPIKA Administration Ceftriaxone Sodium 1 gm in 50 mls @ 100 mls/hr 11/27/18 08:30 11/28/18 08:59 Rocephin/Ns 1 Gm/50 Ml IV 100 mls/hr Q24HR DIPIKA Administration Protocol Morphine Sulfate 2 mg 11/26/18 21:36 Morphine IV Q4H PRN Pain, Moderate (4-6) Ondansetron HCl 4 mg 11/26/18 21:36 Zofran IV Q8H PRN Nausea And Vomiting Sodium Chloride 10 ml 11/26/18 22:00 11/28/18 09:01 Sodium Chloride Flush Syringe 10 Ml IV Not Given BID DIPIKA Sodium Chloride 10 ml 11/26/18 21:36 Sodium Chloride Flush Syringe 10 Ml IV PRN PRN LINE FLUSH
[2018-11-28] MEDS ORDERED: NORVASC PO SCH (10:00)
== END 2018-11-28 12:55 | disposition home or self-care (01) | DRG 726 ==
LOC: ED 15:33 → 2B-ACE 19:10
PROVIDERS: ADMIT Internal Medicine; ATTEND Internal Medicine
DX: N40.1 Benign prostatic hyperplasia with lower urinary tract symptoms (principal); N17.9 Acute kidney failure, unspecified; N13.8 Other obstructive and reflux uropathy; E87.2 Acidosis; E87.1 Hypo-osmolality and hyponatremia; N13.6 Pyonephrosis; N32.0 Bladder-neck obstruction; K40.90 Unilateral inguinal hernia, without obstruction or gangrene, not specified as recurrent; E87.5 Hyperkalemia; R33.8 Other retention of urine
CPT/HCPCS: 36415; 51702; 74176; 80048; 80053; 81001; 82570; 83735; 83970; 84100; 84153; 84300; 85025; 85027; 87076; 87086; 87186; 93005; 93010; 94640; G0378; J0360; J0610; J0696; J1644; J1815; J7030

== ENCOUNTER 2018-12-16 08:42 | Emergency (ER) | payer OTHER ==
--- NOTE | 2018-12-16 14:15 | Emergency Department Report ---
ED Male HPI - General Chief complaint: Urogenital-Male Stated complaint: PROBLEM URINE Time Seen by Provider: 12/16/18 08:57 Source: patient Mode of arrival: Ambulatory Limitations: No Limitations - History of Present Illness Initial comments: Patient is a 73-year-old gentleman who is presenting requesting his Clarke catheter be removed. Patient had a Clarke catheter placed on 11/19/2018 for urinary retention. Patient does not have a urology appointment until sometime in January. Patient was hoping that since it's been approximately 1 month. I h ave it removed. He has no pain no nausea vomiting fevers or chills. - Related Data Previous Rx's Medication Instructions Recorded Last Taken Type amLODIPine [Norvasc] 10 mg PO DAILY #30 tab 11/28/18 Unknown Rx cephALEXin [Keflex] 500 mg PO Q8HR #15 cap 11/28/18 Unknown Rx Allergies Allergy/AdvReac Type Severity Reaction Status Date / Time No Known Allergies Allergy Unverified 11/26/18 15:35 ED Review of Systems ROS: Stated complaint: PROBLEM URINE Other details as noted in HPI Comment: All other systems reviewed and negative ED Past Medical Hx - Past Medical History Hx Hypertension: Yes - Surgical History Past Surgical History?: No - Social History Smoking Status: Never Smoker Substance Use Type: None - Medications Home Medications: Home Medications Medication Instructions Recorded Confirmed Last Taken Type amLODIPine [Norvasc] 10 mg PO DAILY #30 tab 11/28/18 Unknown Rx cephALEXin [Keflex] 500 mg PO Q8HR #15 cap 11/28/18 Unknown Rx ED Physical Exam - General Limitations: No Limitations General appearance: alert, in no apparent distress - Head Head exam: Present: atraumatic, normocephalic - Eye Eye exam: Present: normal appearance - ENT ENT exam: Present: mucous membranes moist - Neck Neck exam: Present: normal inspection - Respiratory Respiratory exam: Present: normal lung sounds bilaterally. Absent: respiratory distress - Cardiovascular Cardiovascular Exam: Present: regular rate, normal rhythm. Absent: systolic murmur, diastolic murmur, rubs, gallop - GI/Abdominal GI/Abdominal exam: Present: soft, normal bowel sounds. Absent: distended, tenderness, guarding - Rectal Rectal exam: Present: deferred - External exam: Present: other - Extremities Exam Extremities exam: Present: normal inspection - Back Exam Back exam: Present: normal inspection - Neurological Exam Neurological exam: Present: alert, oriented X3 - Psychiatric Psychiatric exam: Present: normal affect, normal mood - Skin Skin exam: Present: warm, dry, intact, normal color. Absent: rash ED Course Vital Signs 12/16/18 08:50 Temperature 98.0 F Pulse Rate 79 Respiratory 16 Rate Blood Pressure 163/76 O2 Sat by Pulse 97 Oximetry ED Medical Decision Making - Medical Decision Making Clarke catheter was removed and we waited several hours to see if the patient will be able to urinate. Patient was drinking water and towards the end of his stay feels as though he needs to go but is unable to. Clarke catheter had to be replaced. Patient will be discharged home and should keep his appointment to follow up with urology. Critical care attestation.: If time is entered above; I have spent that time in minutes in the direct care of this critically ill patient, excluding procedure time. ED Disposition Clinical Impression: Urinary retention Disposition: DC-01 TO HOME OR SELFCARE Is pt being admited?: No Does the pt Need Aspirin: No Condition: Stable Instructions: Urinary Retention in Men (ED) Referrals: KRISTA PRADO MD [Staff Physician] - 7-10 days Time of Disposition: 14:15
[2018-12-16 14:30] VITALS: BP 158/74
== END 2018-12-16 14:29 | disposition home or self-care (01) ==
LOC: ED 08:42
DX: R33.9 Retention of urine, unspecified (principal); I10 Essential (primary) hypertension; Z79.899 Other long term (current) drug therapy
CPT/HCPCS: 51702; 99282

== ENCOUNTER 2019-01-02 08:26 | Emergency (ER) | payer MEDICAID ==
[2019-01-02 09:01] VITALS: BP 144/70
--- NOTE | 2019-01-02 09:28 | Emergency Department Report ---
ED Back Pain/Injury HPI - General Chief Complaint: Extremity Injury, Lower Stated Complaint: TAILBONE/HIP PAIN Time Seen by Provider: 01/02/19 09:08 Source: patient Limitations: No Limitations - History of Present Illness Initial Comments: Patient is a 73-year-old male who presents the emergency room with complaints of lower back pain that began a week ago. He denies any fall or injury. He denies having before. He denies any numbness or weakness in the lower extremities. He states he has had constipation for a week. Denies any abdominal pain or nausea or vomiting. His past medical history of urinary retention and currently has a Hillman catheter in. He states he has an appointment with the urologist in January. Denies any issues with his catheter, dysuria, foul smelling urine, discolored urine. - Related Data Previous Rx's Medication Instructions Recorded Last Taken Type amLODIPine [Norvasc] 10 mg PO DAILY #30 tab 11/28/18 Unknown Rx Docusate Sodium [Colace] 100 mg PO BID PRN #20 capsule 01/02/19 Unknown Rx cephALEXin [Keflex] 500 mg PO BID 10 Days #20 cap 01/02/19 Unknown Rx traMADol [Ultram 50 MG tab] 50 mg PO Q6HR PRN #10 tablet 01/02/19 Unknown Rx Allergies Allergy/AdvReac Type Severity Reaction Status Date / Time No Known Allergies Allergy Unverified 11/26/18 15:35 ED Review of Systems ROS: Stated complaint: TAILBONE/HIP PAIN Other details as noted in HPI Comment: All other systems reviewed and negative ED Past Medical Hx - Past Medical History Hx Hypertension: Yes - Surgical History Past Surgical History?: No - Social History Smoking Status: Never Smoker Substance Use Type: None - Medications Home Medications: Home Medications Medication Instructions Recorded Confirmed Last Taken Type amLODIPine [Norvasc] 10 mg PO DAILY #30 tab 11/28/18 Unknown Rx Docusate Sodium [Colace] 100 mg PO BID PRN #20 capsule 01/02/19 Unknown Rx cephALEXin [Keflex] 500 mg PO BID 10 Days #20 cap 01/02/19 Unknown Rx traMADol [Ultram 50 MG tab] 50 mg PO Q6HR PRN #10 tablet 01/02/19 Unknown Rx ED Physical Exam - General Limitations: No Limitations General appearance: alert, in no apparent distress - Head Head exam: Present: atraumatic, normocephalic - Eye Eye exam: Present: normal appearance - ENT ENT exam: Present: mucous membranes moist - Respiratory Respiratory exam: Present: normal lung sounds bilaterally. Absent: respiratory distress, wheezes, rales, rhonchi, stridor, chest wall tenderness, accessory muscle use, decreased breath sounds, prolonged expiratory - Cardiovascular Cardiovascular Exam: Present: regular rate, normal rhythm, normal heart sounds. Absent: systolic murmur, diastolic murmur, rubs, gallop - GI/Abdominal GI/Abdominal exam: Present: soft, normal bowel sounds. Absent: distended, tenderness, guarding, rebound, rigid - exam: Present: other (hillman catheter in place draining yellow urine) - Back Exam Back exam: Present: normal inspection, full ROM. Absent: paraspinal tenderness, vertebral tenderness - Neurological Exam Neurological exam: Present: alert, oriented X3, CN II-XII intact, normal gait. Absent: motor sensory deficit - Psychiatric Psychiatric exam: Present: normal affect, normal mood - Skin Skin exam: Present: warm, dry, intact ED Course Vital Signs 01/02/19 08:59 Temperature 98 F Pulse Rate 102 H Respiratory 18 Rate Blood Pressure 144/70 O2 Sat by Pulse 98 Oximetry ED Medical Decision Making - Lab Data Lab Results 01/02/19 Range/Units 09:35 Urine Color Yellow (Yellow) Urine Turbidity Cloudy (Clear) Urine pH 7.0 (5.0-7.0) Ur Specific [place] 1.011 (1.003-1.030) Urine Protein 30 mg/dl (Negative) mg/dL Urine Glucose (UA) Neg (Negative) mg/dL Urine Ketones Neg (Negative) mg/dL Urine Blood Sm (Negative) Urine Nitrite Pos (Negative) Urine Bilirubin Neg (Negative) Urine Urobilinogen 4.0 (<2.0) mg/dL Ur Leukocyte Esterase Lg (Negative) Urine WBC (Auto) 27.0 H (0.0-6.0) /HPF Urine RBC (Auto) 4.0 (0.0-6.0) /HPF U Epithel Cells (Auto) < 1.0 (0-13.0) /HPF Urine Bacteria (Auto) 3+ (Negative) /HPF - Radiology Data Radiology results: report reviewed FLAT AND UPRIGHT VIEWS OF THE ABDOMEN (3 IMAGES) INDICATION: constipation. COMPARISON: CT abdomen/pelvis 11/26/2018. FINDINGS: The bowel gas pattern is within normal limits. No dilated loops of bowel are seen. No free air is identified. Punctate calcification in the left hemipelvis could be a phlebolith. Distal left ureteral stone could also have this appearance. No acute osseous findings. IMPRESSION: 1. Bowel gas pattern is normal. 2. Punctate calcification in the left hemipelvis could be phleboliths. Distal left ureteral stone could also have this appearance. Signer Name: Franki Contreras MD Signed: 01/02/2019 10:11 AM Workstation Name: [id number] Transcribed By: RAIZA Dictated By: Franki Contreras MD Electronically Authenticated By: Franki Contreras MD Signed Date/Time: 01/02/19 1011 Patient: DIMITRI UPTON MR#: [id number] : 1945 Acct:[id number] Age/Sex: 73 / M ADM Date: 11/26/18 Loc: [facility] B237-[address]: GANESH SARAH MD Ordering Physician: TRINIDAD LAMBERT MD Date of Service: 11/26/18 Procedure(s): CT abdomen pelvis wo con Accession Number(s): [id number] cc: TRINIDAD LAMBERT MD PROCEDURE: CT ABDOMEN PELVIS WO CON TECHNIQUE: Computerized axial tomography of the abdomen and pelvis was performed without intravenous contrast. This study is performed without intravascular contrast material and its sensitivity for abdominal and pelvic pathology, including neoplasms, inflammation, abscess, free fluid, thrombosis, arterial dissection and infarction, is reduced compared with a contrast enhanced study. CT DOSE LENGTH PRODUCT: 945.4 mGycm HISTORY: right inguinal hernia COMPARISONS: None . FINDINGS: Visualized lower thorax: No significant abnormality. Liver: Normal size and attenuation. Spleen: Normal size and attenuation. Gallbladder and biliary system: Gallbladder is present. Pancreas: Normal. Adrenals: Normal. Kidneys: There is bilateral hydroureteronephrosis. Bilateral punctate renal calculi are present, measuring up to 2 mm in the right kidney and 5 mm in the left kidney. There is a 5 mm calculus in th e distal left ureter. GI tract: Moderate volume of stool seen throughout the colon. No bowel obstruction or acute inflammation. Lymph nodes and mesentery: Normal. Vasculature: Aortic atherosclerotic calcification. Bladder: Urinary bladder is significantly distended. Correlate for possible urinary bladder obstruction. Reproductive organs: Prostate gland measures up to 5.5 cm transverse. Peritoneum: No free fluid. Musculoskeletal structures: There are multilevel degenerative disc changes throughout the lumbar spine, particularly at L5-S1. There is depression of the superior endplate of L4, with linear lucency through the superior cortex, which may be acute. No displaced or retropulsed fragments are seen. Other: Right inguinal hernia containing mesenteric fat and a small amount of fluid. IMPRESSION: There is a right inguinal hernia, containing mesenteric fat and a small amount of fluid. Bilateral hydroureteronephrosis and bilateral renal calculi. 5 mm calculus in the distal left ureter. Urinary bladder is distended. Correlate for bladder outlet obstruction. Prostate gland appears prominent. Compression fracture involving the superior endplate of L4 may be acute. This document is electronically signed by Eloise Townsend MD., November 26 2018 06:08:27 PM ET Transcribed By: [facility] Dictated By: ELOISE TOWNSEND M.D. Electronically Authenticated By: ELOISE TOWNSEND M.D. Signed Date/Time: 11/27/18 1555 - Medical Decision Making Patient is a 73-year-old male who presents the emergency room with complaints of lower back pain that began a week ago. He denies any fall or injury. He denies having before. He denies any numbness or weakness in the lower extremities. He states he has had constipation for a week. Denies any abdominal pain or nausea or vomiting. His past medical history of urinary retention and currently has a Hillman catheter in. He states he has an appointment with the urologist in January. Denies any issues with his catheter, dysuria, foul smelling urine, discolored urine. no spinal tenderness on exam, no focal neuro deficit on exam. pt had a CT abd/pelvis on 11/26 which showed a Compression fracture involving the superior endplate of L4 may be acute. XR of the abdomen shows 1. Bowel gas pattern is normal. 2. Punctate calcification in the left hemipelvis could be phleboliths. Distal left ureteral stone could also have this appearance. UA shows evidence of UTI. pt given prescription for pain medication and abx for UTI. discussed with pt and pts family to please take medication as prescribed. do not drive or operate heavy machinery while taking pain medication. follow up with a primary care doctor, urologist, and orthopedic spine doctor listed below. return to the emergency room for any new or worsening symptoms. - Differential Diagnosis fx, dislocaiton, strain, sprain, DDD, spondylosis, spondylithesis, UTI Critical care attestation.: If time is entered above; I have spent that time in minutes in the direct care of this critically ill patient, excluding procedure time. ED Disposition Clinical Impression: Low back pain Qualifiers: Chronicity: acute Back pain laterality: midline Sciatica presence: without sciatica Qualified Code(s): M54.5 - Low back pain UTI (urinary tract infection) Qualifiers: Urinary tract infection type: acute cystitis Hematuria presence: without hematuria Qualified Code(s): N30.00 - Acute cystitis without hematuria Constipation Qualifiers: Constipation type: unspecified constipation type Qualified Code(s): K59.00 - Constipation, unspecified Disposition: TO HOME OR SELFCARE Is pt being admited?: No Does the pt Need Aspirin: No Condition: Stable Instructions: Constipation (ED), Urinary Tract Infection in Men (ED), High Fiber Diet (ED), Thoracolumbar Fracture (ED) Additional Instructions: please take medication as prescribed. do not drive or operate heavy machinery while taking pain medication. follow up with a primary care doctor, urologist, and orthopedic spine doctor listed below. return to the emergency room for any new or worsening symptoms. [facility] Address: [address] [place] [address] Prescriptions: Docusate Sodium [Colace] 100 mg PO BID PRN #20 capsule PRN Reason: Constipation cephALEXin [Keflex] 500 mg PO BID 10 Days #20 cap traMADol [Ultram 50 MG tab] 50 mg PO Q6HR PRN #10 tablet PRN Reason: Pain Referrals: ELMIRA OSBORN MD [Primary Care Provider] - 2-3 Days [facility] [place]] - 2-3 Days [facility] [Outside] - 2-3 Days KRISTA PRADO MD [Staff Physician] - 2-3 Days orthopedic, spine [Other] - 2-3 Days Time of Disposition: 10:28 Print Language: GEORGIAN
[2019-01-02 09:52] LABS: Bacteria,Urine 3+ /HPF (Negative); Bilirubin,Urine NEG (Negative); Blood,Urine SM (Negative)
[2019-01-02 09:53] LABS: Color,Urine Yellow (Yellow)
--- NOTE | 2019-01-02 10:15 | XRay Report ---
FLAT AND UPRIGHT VIEWS OF THE ABDOMEN (3 IMAGES) INDICATION: constipation. COMPARISON: CT abdomen/pelvis 11/26/2018. FINDINGS: The bowel gas pattern is within normal limits. No dilated loops of bowel are seen. No free air is raina ntified. Punctate calcification in the left hemipelvis could be a phlebolith. Distal left ureteral st one could also have this appearance. No acute osseous findings. IMPRESSION: 1. Bowel gas pattern is normal. 2. Punctate calcification in the left hemipelvis could be phleboliths. Distal left ureteral stone cou ld also have this appearance. Signer Name: Franki Contreras MD Signed: 01/02/2019 10:11 AM Workstation Name: [id number]
== END 2019-01-02 11:06 | disposition home or self-care (01) ==
LOC: ED 08:26
DX: N39.0 Urinary tract infection, site not specified (principal); K59.00 Constipation, unspecified; I10 Essential (primary) hypertension
CPT/HCPCS: 74019; 81001; 87086

== ENCOUNTER 2019-01-03 08:55 | Emergency (ER) | payer MEDICAID ==
--- NOTE | 2019-01-03 09:30 | Emergency Department Report ---
ED Male HPI - General Chief complaint: Urogenital-Male Stated complaint: CATHETER CAME OUT/BLEEDING Time Seen by Provider: 01/03/19 09:12 Source: patient Mode of arrival: Ambulatory Limitations: No Limitations - History of Present Illness Initial comments: Mr. Humphrey is a 73-year-old male who presents with request to replace Clarke catheter. In November last month he was admitted for acute renal failure, enlarged prostate. He required Clarke catheter for severe obstructive uropathy. According to discharge summary, Clarke drained immediately 2 L of urine. Creatinine decreased from 19-1.7. Daughter at the bedside stated that [place] urology appointment has been scheduled for January. He currently does not have any pain right now. Patient stumbled this morning. During that time the Clarke catheter was pulled out with the balloon intact MD Complaint: other (Clarke catheter pulled out) -: Sudden, This morning Severity: mild Improves with: none Worsens with: none - Related Data Previous Rx's Medication Instructions Recorded Last Taken Type amLODIPine [Norvasc] 10 mg PO DAILY #30 tab 11/28/18 Unknown Rx Docusate Sodium [Colace] 100 mg PO BID PRN #20 capsule 01/02/19 Unknown Rx cephALEXin [Keflex] 500 mg PO BID 10 Days #20 cap 01/02/19 Unknown Rx traMADol [Ultram 50 MG tab] 50 mg PO Q6HR PRN #10 tablet 01/02/19 Unknown Rx Allergies Allergy/AdvReac Type Severity Reaction Status Date / Time No Known Allergies Allergy Unverified 11/26/18 15:35 ED Review of Systems ROS: Stated complaint: CATHETER CAME OUT/BLEEDING Other details as noted in HPI Comment: All other systems reviewed and negative Constitutional: denies: fever, malaise Cardiovascular: denies: chest pain ED Past Medical Hx - Past Medical History Previous Medical History?: Yes Hx Hypertension: Yes - Social History Smoking Status: Never Smoker Substance Use Type: None - Medications Home Medications: Home Medications Medication Instructions Recorded Confirmed Last Taken Type amLODIPine [Norvasc] 10 mg PO DAILY #30 tab 11/28/18 Unknown Rx Docusate Sodium [Colace] 100 mg PO BID PRN #20 capsule 01/02/19 Unknown Rx cephALEXin [Keflex] 500 mg PO BID 10 Days #20 cap 01/02/19 Unknown Rx traMADol [Ultram 50 MG tab] 50 mg PO Q6HR PRN #10 tablet 01/02/19 Unknown Rx ED Physical Exam - General Limitations: No Limitations General appearance: alert, in no apparent distress - Head Head exam: Present: atraumatic, normocephalic - Eye Eye exam: Present: normal appearance - ENT ENT exam: Present: mucous membranes moist - Neck Neck exam: Present: normal inspection, full ROM - Respiratory Respiratory exam: Present: normal lung sounds bilaterally. Absent: respiratory distress, wheezes, rales, rhonchi - Cardiovascular Cardiovascular Exam: Present: regular rate, normal rhythm, normal heart sounds. Absent: systolic murmur, diastolic murmur, rubs, gallop - GI/Abdominal GI/Abdominal exam: Present: soft, normal bowel sounds. Absent: distended, tenderness, guarding, rebound - Rectal Rectal exam: Present: deferred - Extremities Exam Extremities exam: Present: normal inspection - Back Exam Back exam: Present: normal inspection - Neurological Exam Neurological exam: Present: alert, oriented X3 - Psychiatric Psychiatric exam: Present: normal affect, normal mood - Skin Skin exam: Present: warm, dry, intact, normal color. Absent: rash ED Course Vital Signs 01/03/19 09:00 Temperature 97.5 F L Pulse Rate 94 H Respiratory 18 Rate Blood Pressure 154/79 O2 Sat by Pulse 100 Oximetry ED Medical Decision Making - Medical Decision Making Clarke catheter replacement, nursing staff was able to easily insert Clarke catheter. Unclear why Mr. Humphrey is not taking an oral alpha beti such as Flomax. I reviewed his chart. I also reviewed inpatient urology consultation documentation. With the consideration of renal failure in elderly patient, the risk of hypotension would be high. Consequently I have withheld the use of prescribing an oral alpha beti. Upon examination, the nurse informed me that [address] conventional Clarke catheter was initially inserted. Our nursing staff inserted [address] coud catheter with ease. Critical care attestation.: If time is entered above; I have spent that time in minutes in the direct care of this critically ill patient, excluding procedure time. ED Disposition Clinical Impression: Obstructive uropathy, Urinary retention, Enlarged prostate, Indwelling Clarke catheter present Disposition: DC-01 TO HOME OR SELFCARE Is pt being admited?: No Does the pt Need Aspirin: No Condition: Stable Instructions: Clarke Catheter Placement and Care (ED) Referrals: [facility] MD JEANNIE [Primary Care Provider] - 3-5 Days KRISTA PRADO MD [Staff Physician] - [facility]
[2019-01-03 10:27] VITALS: BP 154/80
== END 2019-01-03 10:27 | disposition home or self-care (01) ==
LOC: ED 08:55
DX: T83.098A Other mechanical complication of other urinary catheter, initial encounter (principal); N40.1 Benign prostatic hyperplasia with lower urinary tract symptoms; R33.8 Other retention of urine; N13.9 Obstructive and reflux uropathy, unspecified; I10 Essential (primary) hypertension; Y92.89 Other specified places as the place of occurrence of the external cause
CPT/HCPCS: 51702

== ENCOUNTER 2019-02-14 07:26 | Outpatient (CLI) | payer MEDICARE ==
--- NOTE | 2019-02-14 12:22 | Nuclear Medicine Report ---
NUCLEAR MEDICINE BONE SCAN, WHOLE BODY INDICATION: R97.20 ELEVATED PROSTATE SPECIFIC ANTIGEN. TECHNIQUE: 25 mCi of Tc-99m MDP were injected IV. Whole body images were obtained. COMPARISON: No relevant prior imaging study available. FINDINGS: Skeletal Lesions: There are multiple foci of abnormal increased radiotracer uptake throughout the spi ne, bilateral ribs, sternum, upper sacrum, bilateral scapula, bilateral proximal femurs and right par ietal bone.. Soft Tissues: Normal. Kidneys: Normal, symmetric activity. Additional Findings: None. IMPRESSION: Multiple foci of abnormal uptake are noted in the axial and proximal appendicular skeleton consisten t with metastatic disease.. Signer Name: Rafael Ahuja Jr, MD Signed: 02/14/2019 12:17 PM Workstation Name: [id number]
== END 2019-02-14 07:27 | disposition home or self-care (01) ==
LOC: NM 07:26
PROVIDERS: ATTEND Urology
DX: R97.20 Elevated prostate specific antigen [PSA] (principal)
CPT/HCPCS: 78306; A9503

== ENCOUNTER 2019-05-28 10:29 | Observation (INO) | payer MEDICARE ==
--- NOTE | 2019-05-22 11:49 | Anesthesia Consultation ---
Anesthesia Consult and Med Hx Date of service: 05/28/19 - Airway Anesthetic Teeth Evaluation: Poor, Chipped ROM Head & Neck: Adequate Mental/Hyoid Distance: Adequate Mallampati Class: Class II Intubation Access Assessment: Probably Good - Pre-Operative Health Status ASA Pre-Surgery Classification: ASA2 Proposed Anesthetic Plan: General - Pulmonary Hx Smoking: Yes (STOPPED X 30 YRS. Pumonary clearance on chart) COPD: Yes (RECENT DX - TO START INHALERS) Hx Sleep Apnea: No (REINIER PRE SCREEN HIGH RISK.) - Cardiovascular System Hx Hypertension: Yes (NO MEDS AT PRESENT. States he can climb two flights of stairs) - Central Nervous System Hx Back Pain: Yes - Other Systems Hx Cancer: Yes (Prostate)
[2019-05-22 12:06] LABS: Basophils % (Auto) 0.5 % (0.0-1.8); Eosinophils # (Auto) 0.1 K/mm3 (0.0-0.4); Eosinophils % (Auto) 1.4 % (0.0-4.3); Hematocrit 39.5 % (35.5-45.6); Hemoglobin 13.2 gm/dl (11.8-15.2); Lymphocytes # (Auto) 1.7 K/mm3 (1.2-5.4); Lymphocytes % (Auto) 28.4 % (13.4-35.0); Mean Corpuscular HGB Conc 34 % (32-34); Mean Corpuscular Volume 87 fl (84-94); Monocytes # (Auto) 0.4 K/mm3 (0.0-0.8); Monocytes % (Auto) 7.2 % (0.0-7.3); Platelet Count 270 K/mm3 (140-440); Red Blood Count 4.53 M/mm3 (3.65-5.03); Red Cell Distribution Width 14.8 % (13.2-15.2)
[2019-05-22 12:32] LABS: Alanine Aminotransferase 15 units/L (7-56); BUN/Creatinine Ratio 12; Blood Urea Nitrogen 14 mg/dL (9-20); Calcium 9.4 mg/dL (8.4-10.2); Hemolysis Index 10
[~2019-05-28 10:29] MED LIST: LACTATED RINGERS 1,000 ML IV SCH
[2019-05-28] MEDS ORDERED: ceFAZolin/Water 2 GM/20 ML 2 GM/20 ML SYRINGE IV NR (12:00)
[2019-05-28] MEDS ORDERED: LIDOCAINE MPF (2%) 20 MG/1 ML VIAL 5 ML ONE (12:20)
[2019-05-28] MEDS ORDERED: fentaNYL 100 MCG/2 ML INJ ONE (12:21)
[2019-05-28] MEDS ORDERED: PROPOFOL 200 MG/20 ML VIAL IV ONE (12:21)
--- NOTE | 2019-05-28 12:41 | Post Operative Note ---
Date of procedure: 05/28/19 Pre-op diagnosis: aur cap Post-op diagnosis: same Findings: bladder outlet obst Procedure: cysto channel turp Anesthesia: GETA Surgeon: VIJAY ANDRE Estimated blood loss: 50-100ml Pathology: list (prostate) Specimen disposition: to lab Condition: stable Disposition: PACU
[2019-05-28] MEDS ORDERED: ACETAMINOPHEN 325 MG TAB PO PRN (12:42)
[2019-05-28] MEDS ORDERED: NALOXONE 0.4 MG/1 ML INJ IV PRN (12:42)
[2019-05-28] MEDS ORDERED: ONDANSETRON 4 MG ODT TAB PO PRN (12:42)
[2019-05-28] MEDS ORDERED: oxyCODONE /ACETAMINOPHEN 5-325MG TAB PO PRN (12:42)
[2019-05-28] MEDS ORDERED: ZOLPIDEM 5 MG TAB PO PRN (12:42)
[2019-05-28] MEDS ORDERED: ePHEDrine SULFATE 50 MG/1 ML INJ ONE (12:52)
[2019-05-28] MEDS ORDERED: PHENYLEPHRINE/NS 1,000 MCG/10 ML SYRINGE (OR USE) IV ONE (12:52)
[2019-05-28] MEDS ORDERED: D5W/0.45% NACL/KCL 20 MEQ 20 MEQ/1,000 ML BAG IV SCH (13:00)
--- NOTE | 2019-05-28 13:42 | XRay Report ---
Single fluoroscopic image submitted Indication: Intraoperative localization Impression: A single image of the abdomen was submitted for documentation purposes with radiology in volvement. Cystogram and TURP were performed. Please refer to the operative note for complete detail s. Fluoroscopic time: 0.1 minutes Number of fluoroscopic images: 1 Signer Name: Mikal Ortega MD Signed: 05/28/2019 1:38 PM Workstation Name: [id number]
[2019-05-28] MEDS ORDERED: hydrALAZINE 20 MG/1 ML INJ IV PRN (14:30)
[2019-05-28] MEDS ORDERED: SODIUM CHLORIDE IRRI 2000 ML 6,000 ML ONE (14:40)
--- NOTE | 2019-05-28 16:04 | Post Anesthesia Evaluation ---
- Post Anesthesia Evaluation Patient Participated: Yes Airway Patent: Yes Stable Respiratory Function: Yes Nausea/Vomiting: No Temp > 96.8F: Yes Pain Manageable: Yes Adequeate Hydration: Yes Anesthesia Complications: No Block Receding Appropriately: Not Applicable Patient on Ventilator: No
--- NOTE | 2019-05-28 16:06 | Anesthesia Day of Surgery ---
Anesthesia Day of Surgery - Day of Surgery Patient Examined: Yes Patient H&P Reviewed: Yes Patient is NPO: Yes
[2019-05-28] MEDS: SODIUM CHLORIDE 0.9% IRRIG SOLN 2000 ML IR SCH ×3 (17:00→18:46)
--- NOTE | 2019-05-28 17:42 | Operative Report ---
PREOPERATIVE DIAGNOSES: Urinary retention, metastatic prostate cancer. POSTOPERATIVE DIAGNOSES: Urinary retention, metastatic prostate cancer. PROCEDURE: Channel transurethral resection of prostate. SURGEON: Dr. Callaway. ANESTHESIA: General. FINDINGS: This is a gentleman who suffers from metastatic prostate cancer, recurrent urinary retention. He has a catheter. He now presents for channel TURP. DESCRIPTION OF PROCEDURE: The patient was brought to the operating room and placed on the operating table. Following induction of anesthesia, placed in lithotomy position, prepped and draped in usual sterile fashion. The bipolar resectoscope was placed and the prostate was resected as much as possible to open up the channel. We ____ resection was not made distal to the verumontanum, but there was a metastatic cancer there and extension, so we did as much as we could. We did not want to make him incontinent. All the chips were evacuated out with the [employer] evacuator. Hemostasis was assured. The trigone was intact and there were no bladder tumors. Once we resected and gave him a channel, the patient tolerated the procedure well ____ 3-way catheter was placed. Irrigation was clear, brought to recovery in stable condition. JOB# [id number] NORI/MIKEY
[2019-05-28] MEDS ORDERED: TAMSULOSIN 0.4 MG CAP PO SCH (18:00)
[2019-05-28] MEDS: hydrALAZINE 20 MG/1 ML INJ IV PRN (18:45)
--- NOTE | 2019-05-28 20:20 | Consultation ---
History of Present Illness - Reason for Consult Consult date: 05/28/19 - History of Present Illness Patient is a 73-year-old male with a past medical history of prostate cancer, COPD and hypertension who is admitted today for cysto channel turp . Patient currently denies any pain, tenderness or nausea. He reports compliance with his home medications. Past History Past Medical History: other (as noted in HPI) Past Surgical History: TURP Social history: other (former 30 year smoker) Family history: cancer, diabetes, hypertension Medications and Allergies Allergies Allergy/AdvReac Type Severity Reaction Status Date / Time No Known Allergies Allergy Verified 05/21/19 16:45 Home Medications Medication Instructions Recorded Confirmed Last Taken Type Acetaminophen [Tylenol] 500 mg PO PRN PRN 05/21/19 05/28/19 05/27/19 History Apalutamide [Erleada] 240 mg PO DAILY 05/21/19 05/28/19 05/27/19 History Budesonide/Formoterol Fumarate 2 puff IH DAILY 05/21/19 05/28/19 Unknown History [Symbicort 80-4.5 Mcg Inhaler] Tamsulosin [Flomax] 0.4 mg PO QHS 05/21/19 05/28/19 05/26/19 History Albuterol Sulfate [Proventil Hfa] 2 puff IH PRN PRN 05/22/19 05/28/19 05/27/19 18:00 History Bisacodyl [Dulcolax] 5 mg PO DAILY PRN 05/22/19 05/22/19 05/14/19 History Cholecalciferol (Vitamin D3) 5,000 unit PO DAILY 05/22/19 05/22/19 05/14/19 History [Vitamin D3 5,000 UNIT] Magnesium 500 mg PO DAILY 05/22/19 05/22/19 05/14/19 History Om3/Dha/Epa/Cod Liver Oil/A/D3 1 each PO DAILY 05/22/19 05/22/19 05/14/19 History [Cod Liver Oil Softgel] Sennosides/Docusate Sodium [Dok 1 each PO DAILY 05/22/19 05/22/19 05/14/19 History Plus Tablet] Active Meds: Active Medications Acetaminophen (Tylenol) 650 mg PO Q4H PRN PRN Reason: Pain, Mild (1-3)/Fever > 100.5 Docusate Sodium (Colace) 100 mg PO BID [facility] Hydralazine HCl (Apresoline) 10 mg IV Q30MIN PRN PRN Reason: Hypertension Last Admin: 05/28/19 13:58 Dose: 10 mg Documented by: Hydralazine HCl (Apresoline) 5 mg IV Q3H PRN PRN Reason: Blood Pressure Lactated Ringer's (Lactated Ringers) 1,000 mls @ 100 mls/hr IV DIRECT DIPIKA Last Admin: 05/28/19 11:05 Dose: 100 mls/hr Documented by: Potassium Chloride/Dextrose/Sod Cl (D5w/0.45% Nacl/Kcl 20 Meq) 20 meq in 1,000 mls @ 100 mls/hr IV DIRECT DIPIKA Last Admin: 05/28/19 17:45 Dose: 100 mls/hr Documented by: Cefazolin Sodium (Ancef/Ns 1 Gm/50 Ml) 1 gm in 50 mls @ 100 mls/hr IV Q8H [facility]; Protocol Stop: 05/29/19 14:29 Naloxone HCl (Naloxone) 0.1 mg IV Q2MIN PRN PRN Reason: Res Rate </= 8 or 02 SAT < 92% Ondansetron HCl (Zofran Odt) 4 mg PO Q8H PRN PRN Reason: Nausea And Vomiting Oxycodone/Acetaminophen (Percocet 5/325) 2 tab PO Q6H PRN PRN Reason: Pain, Moderate (4-6) Sodium Chloride (Nacl 0.9%) 2,000 ml IR DIRECT DIPIKA Last Admin: 05/28/19 18:46 Dose: 2,000 ml Documented by: Tamsulosin HCl (Flomax) 0.4 mg PO QPM [facility] Last Admin: 05/28/19 18:43 Dose: 0.4 mg Documented by: Valsartan (Diovan) 80 mg PO QDAY [facility] Zolpidem Tartrate (Ambien) 5 mg PO QHS PRN PRN Reason: Sleep Review of Systems All systems: negative Constitutional: no fever, no chills, no sweats, no weakness, no malaise Ears, nose, mouth and throat: no sore throat, no swelling in mouth Cardiovascular: no chest pain, no lightheadedness, no shortness of breath Respiratory: no cough, no dyspnea on exertion Gastrointestinal: no abdominal pain, no nausea, no vomiting, no diarrhea Genitourinary Male: other (inguinal hernia) Musculoskeletal: no arm numbness/tingling, no leg numbness/tingling Integumentary: no rash Neurological: no head injury, no numbness, no tingling, no seizures Psychiatric: no suicidal ideation, no hopelessness, no confusion, no irritability Endocrine: no cold intolerance, no heat intolerance, no polyuria, no nocturia Hematologic/Lymphatic: no easy bruising, no easy bleeding Allergic/Immunologic: no angioedema Exam - Physical Exam Narrative exam: General appearance: Present: no acute distress - EENT Eyes: Present: PERRL, EOM intact ENT: hearing intact - Neck Neck: Present: supple, normal ROM - Respiratory Respiratory effort: normal Respiratory: Right lobe expiratory wheezes - Cardiovascular Rhythm: regular - Extremities Extremities: pulses intact Peripheral Pulses: within normal limits - Abdominal General gastrointestinal: Denies nausea or vomiting - Nontender - Integumentary Integumentary: Present: warm, dry - Musculoskeletal Musculoskeletal: strength equal bilaterally - Psychiatric Psychiatric: appropriate mood/affect - Neurologic Neurologic: CNII-XII intact - Constitutional Vitals: Temp Pulse Resp BP Pulse Ox 97.8 F 77 18 202/76 99 05/28/19 16:36 05/28/19 16:36 05/28/19 16:36 05/28/19 16:36 05/28/19 16:36 Results - Labs CBC & Chem 7: 05/22/19 11:25 05/22/19 11:25 Assessment and Plan Prostate cancer s/p TURP -hydration and pain control -Recheck labs in AM -monitor uop -Agree with present management; Possible discharge tomorrow COPD -continue home meds -albuterol prn Hypertension --BP currently stable -Continue home meds -Monitor BP q shift DVT prophylaxis -scd to ble while in bed
[2019-05-28] MEDS: ceFAZolin/NS 1 GM/50 ML 1 GM/50 ML BAG IV SCH ×2 (21:06→21:59)
[2019-05-28] MEDS: VALSARTAN 40 MG TAB PO SCH (22:00)
[2019-05-28] MEDS: DOCUSATE SODIUM 100 MG CAP PO SCH (22:00)
[2019-05-28] MEDS ORDERED: ALBUTEROL 8.5 GM INHALATION IH PRN (22:08)
[2019-05-28] MEDS ORDERED: ACETAMINOPHEN 500 MG TAB PO PRN (22:08)
[2019-05-28] MEDS ORDERED: ALBUTEROL 2.5 MG/3 ML NEBU IH PRN (22:52)
[2019-05-29] MEDS: SODIUM CHLORIDE 0.9% IRRIG SOLN 2000 ML IR SCH ×3 (03:02→05:58)
[2019-05-29] MEDS: ceFAZolin/NS 1 GM/50 ML 1 GM/50 ML BAG IV SCH (05:25)
[2019-05-29] MEDS: hydrALAZINE 20 MG/1 ML INJ IV PRN (05:52)
[2019-05-29 07:03] LABS: Basophils % (Auto) 0.3 % (0.0-1.8); Eosinophils % (Auto) 0.4 % (0.0-4.3); Hematocrit 35.8 % (35.5-45.6); Hemoglobin 12.4 gm/dl (11.8-15.2); Lymphocytes # (Auto) 1.4 K/mm3 (1.2-5.4); Lymphocytes % (Auto) 17.2 % (13.4-35.0); Mean Corpuscular HGB Conc 35 % (32-34); Mean Corpuscular Volume 86 fl (84-94); Monocytes # (Auto) 0.6 K/mm3 (0.0-0.8); Platelet Count 225 K/mm3 (140-440); Red Blood Count 4.17 M/mm3 (3.65-5.03); Red Cell Distribution Width 15.1 % (13.2-15.2)
[2019-05-29 07:23] LABS: BUN/Creatinine Ratio 14; Blood Urea Nitrogen 14 mg/dL (9-20); Calcium 8.8 mg/dL (8.4-10.2); Hemolysis Index 4
[2019-05-29 07:50] VITALS: BP 151/77
[2019-05-29] MEDS ORDERED: ARFORMOTEROL 15 MCG/2 ML NEBU IH SCH (08:00)
[2019-05-29] MEDS ORDERED: BUDESONIDE 0.5 MG/2 ML NEBU IH SCH (08:00)
[2019-05-29] MEDS: DOCUSATE SODIUM 100 MG CAP PO SCH (09:08)
[2019-05-29] MEDS: VALSARTAN 40 MG TAB PO SCH (09:08)
--- NOTE | 2019-05-29 09:45 | Progress Note ---
Assessment and Plan IRRIGATION CLEAR HOME WITH CATH Subjective Date of service: 05/29/19 Principal diagnosis: AUR caP Objective - Constitutional Vitals: Vital Signs - 12hr 05/28/19 05/28/19 05/29/19 21:55 23:24 04:05 Temperature 98.0 F 98.2 F Pulse Rate 86 80 Respiratory 17 17 Rate Blood Pressure 154/78 170/81 Blood Pressure [Right] O2 Sat by Pulse 100 97 98 Oximetry 05/29/19 05/29/19 07:29 08:02 Temperature 98.4 F 98.4 F Pulse Rate 95 H 96 H Respiratory 16 20 Rate Blood Pressure 151/77 Blood Pressure 151/77 [Right] O2 Sat by Pulse 96 100 Oximetry General appearance: Present: no acute distress - Neck Neck: supple - Respiratory Respiratory effort: normal Extremities: no ischemia - Gastrointestinal General gastrointestinal: Present: soft, non-tender - Labs CBC & Chem 7: 05/29/19 06:22 05/29/19 06:22 Labs: Abnormal lab results 05/29/19 05/29/19 Range/Units 06:22 06:22 MCHC 35 H (32-34) % Major % (Auto) 8.0 H (0.0-7.3) % Seg Neutrophils % 74.1 H (40.0-70.0) % Glucose 106 H (75-100) mg/dL Medications & Allergies - Medications Allergies/Adverse Reactions: Allergies No Known Allergies Allergy (Verified 05/21/19 16:45) Home Medications: Home Medications Medication Instructions Recorded Confirmed Last Taken Type Acetaminophen [Tylenol] 500 mg PO PRN PRN 05/21/19 05/28/19 05/27/19 History Apalutamide [Erleada] 240 mg PO DAILY 05/21/19 05/28/19 05/27/19 History Budesonide/Formoterol Fumarate 2 puff IH DAILY 05/21/19 05/28/19 Unknown History [Symbicort 80-4.5 Mcg Inhaler] Tamsulosin [Flomax] 0.4 mg PO QHS 05/21/19 05/28/19 05/26/19 History Albuterol Sulfate [Proventil Hfa] 2 puff IH PRN PRN 05/22/19 05/28/19 05/27/19 18:00 History Bisacodyl [Dulcolax] 5 mg PO DAILY PRN 05/22/19 05/22/19 05/14/19 History Cholecalciferol (Vitamin D3) 5,000 unit PO DAILY 05/22/19 05/22/19 05/14/19 History [Vitamin D3 5,000 UNIT] Magnesium 500 mg PO DAILY 05/22/19 05/22/19 05/14/19 History Om3/Dha/Epa/Cod Liver Oil/A/D3 1 each PO DAILY 05/22/19 05/22/19 05/14/19 History [Cod Liver Oil Softgel] Sennosides/Docusate Sodium [Dok 1 each PO DAILY 05/22/19 05/22/19 05/14/19 History Plus Tablet] Active Medications: Generic Name Dose Route Start Last Admin Trade Name Freq PRN Reason Stop Dose Admin Acetaminophen 650 mg 05/28/19 12:42 Tylenol PO Q4H PRN Fever > 100.5 Acetaminophen 500 mg 05/28/19 22:08 Tylenol PO Q4H PRN Pain, Mild (1-3) Albuterol 2.5 mg 05/28/19 22:52 Proventil IH Q4HRT PRN Shortness Of Breath Arformoterol Tartrate 15 mcg 05/29/19 08:00 05/29/19 07:35 Brovana Nebu IH 15 mcg Q12HRT DIPIKA Administration Bisacodyl 5 mg 05/28/19 22:08 Dulcolax PO DAILY PRN Constipation Budesonide 0.5 mg 05/29/19 08:00 05/29/19 07:35 Pulmicort IH 0.5 mg Q12HRT DIPIKA Administration Docusate Sodium 100 mg 05/28/19 22:00 05/29/19 09:08 Colace PO 100 mg BID DIP[facility]A Administration Hydralazine HCl 5 mg 05/28/19 19:31 05/29/19 05:52 Apresoline IV 5 mg Q3H PRN Administration Blood Pressure Potassium Chloride/Dextrose/Sod Cl 20 meq in 1,000 mls @ 100 mls/hr 05/28/19 13:00 05/28/19 17:45 D5w/0.45% Nacl/Kcl 20 Meq IV 100 mls/hr DIRECT DIPIKA Administration Cefazolin Sodium 1 gm in 50 mls @ 100 mls/hr 05/28/19 14:00 05/29/19 05:25 Ancef/Ns 1 Gm/50 Ml IV 05/29/19 14:29 100 mls/hr Q8H DIP[facility]A Administration Protocol Miscellaneous Medication 240 mg 05/29/19 10:00 Apalutamide [Erleada] PO DAILY [facility]IP[facility] Naloxone HCl 0.1 mg 05/28/19 12:42 Naloxone IV Q2MIN PRN Res Rate </= 8 or 02 SAT < 92% Ondansetron HCl 4 mg 05/28/19 12:42 Zofran Odt PO Q8H PRN Nausea And Vomiting Oxycodone/Acetaminophen 2 tab 05/28/19 12:42 Percocet 5/325 PO Q6H PRN Pain, Moderate (4-6) Sodium Chloride 2,000 ml 05/28/19 13:00 05/29/19 05:58 Nacl 0.9% IR 2,000 ml DIRECT DIPIKA Administration Tamsulosin HCl 0.4 mg 05/28/19 18:00 05/28/19 18:43 Flomax PO 0.4 mg QPM [facility]IP[facility] Administration Valsartan 80 mg 05/28/19 20:00 05/29/19 09:08 Diovan PO 80 mg QDAY [facility] Administration Zolpidem Tartrate 5 mg 05/28/19 12:42 Ambien PO QHS PRN Sleep
--- NOTE | 2019-05-29 09:46 | Discharge Summary ---
Short Stay Discharge Plan Activity: other (NO STRAINING ) Weight Bearing Status: Full Weight Bearing Diet: regular Special Instructions: other ([facility] FLUIDS ) Durable Medical Equipment Needed Upon Discharge: other ([facility] ) Follow up with: DMITRIY SHORT III, APRN-BART [Primary Care Provider] - 7 Days
[2019-05-29] MEDS ORDERED: FORMOTEROL FUMARATE IH SCH (10:00)
[2019-05-29] MEDS ORDERED: [UNRECOGNIZED DRUG - OTHER] IH SCH (10:00)
[2019-05-29] MEDS ORDERED: APALUTAMIDE 240 MG PO SCH (10:00)
[2019-05-29] MEDS ORDERED: BUDESONIDE IH SCH (10:00)
== END 2019-05-29 13:04 | disposition home or self-care (01) ==
LOC: OR 10:29 → 3B-SURG 12:42
PROVIDERS: ADMIT Urology; ATTEND Urology
DX: C79.82 Secondary malignant neoplasm of genital organs (principal); R33.9 Retention of urine, unspecified; N40.0 Benign prostatic hyperplasia without lower urinary tract symptoms; J44.9 Chronic obstructive pulmonary disease, unspecified; I10 Essential (primary) hypertension; Z87.891 Personal history of nicotine dependence
CPT/HCPCS: 36415; 52601; 74018; 80048; 80053; 85025; 86850; 86900; 86901; 88305; 94640; 96365; 96366; 96375; 96376; A4217; G0378; J0360; J0690; J2370; J2704; J3010; J7120

== ENCOUNTER 2020-03-19 16:45 | Inpatient (IN) | payer MEDICAID, MEDICARE ==
[2020-03-19] MEDS ORDERED: MORPHINE 4 MG/1 ML INJ IV ONE (17:14)
[2020-03-19] MEDS ORDERED: KETOROLAC 30 MG/1 ML INJ IV ONE (17:14)
[2020-03-19] MEDS ORDERED: ONDANSETRON 4 MG/2 ML INJ IV ONE (17:14)
[2020-03-19 17:41] LABS: Hematocrit 32.7 % (35.5-45.6); Hemoglobin 11.6 gm/dl (11.8-15.2); Mean Corpuscular HGB Conc 35 % (32-34); Mean Corpuscular Volume 86 fl (84-94); Platelet Count 192 K/mm3 (140-440); Red Blood Count 3.79 M/mm3 (3.65-5.03); Red Cell Distribution Width 14.1 % (13.2-15.2)
[2020-03-19 17:53] LABS: Partial Thromboplastin Time 21.8 Sec. (24.2-36.6)
--- NOTE | 2020-03-19 18:15 | XRay Report ---
Chest single view INDICATION: Chest pain IMPRESSION: Ill-defined densities within both lower lungs. No large pneumothorax identified. No pleur al effusion. Signer Name: Toño Sandoval MD Signed: 03/19/2020 6:10 PM Workstation Name: [id number]
--- NOTE | 2020-03-19 18:20 | XRay Report ---
Left hip 3 views INDICATION: Left hip pain. IMPRESSION: There is a subcapital left femoral neck fracture in the setting of moderate to severe ost eopenia. No dislocation of the left femoral head. Signer Name: Toño Sandoval MD Signed: 03/19/2020 6:16 PM Workstation Name: [id number]
[2020-03-19 18:23] LABS: BUN/Creatinine Ratio 16; Blood Urea Nitrogen 18 mg/dL (9-20); Calcium 9.3 mg/dL (8.4-10.2); Hemolysis Index 4
--- NOTE | 2020-03-19 18:26 | Emergency Department Report ---
ED Extremity Problem HPI - General Chief complaint: Extremity Injury, Lower Stated complaint: FALL Time Seen by Provider: 03/19/20 17:05 Source: patient, family Mode of arrival: Stretcher Limitations: No Limitations - History of Present Illness Initial comments: Patient is a 74-year-old F Chinese male with past medical history of COPD who fell at a gas station prior to arrival. Patient complaining of left hip pain is worse with movement and better with rest. Prefers to have the hip flexed. States there was no other injuries at this time. Pain at its worst is 8 out of 10 in severity. X-rays were taken prior to the patient arriving which showed a hairline fracture of the left femoral neck. Severity scale (0 -10): 7 - Related Data Home Medications Medication Instructions Recorded Confirmed Last Taken Acetaminophen [Tylenol] 500 mg PO PRN PRN 05/21/19 05/28/19 05/27/19 Apalutamide [Erleada] 240 mg PO DAILY 05/21/19 05/28/19 05/27/19 Budesonide/Formoterol Fumarate 2 puff IH DAILY 05/21/19 05/28/19 Unknown [Symbicort 80-4.5 Mcg Inhaler] Tamsulosin [Flomax] 0.4 mg PO QHS 05/21/19 05/28/19 05/26/19 Albuterol Sulfate [Proventil Hfa] 2 puff IH PRN PRN 05/22/19 05/28/19 05/27/19 18:00 Cholecalciferol (Vitamin D3) 5,000 unit PO DAILY 05/22/19 05/22/19 05/14/19 [Vitamin D3 5,000 UNIT] Magnesium 500 mg PO DAILY 05/22/19 05/22/19 05/14/19 Om3/Dha/Epa/Cod Liver Oil/A/D3 1 each PO DAILY 05/22/19 05/22/19 05/14/19 [Cod Liver Oil Softgel] Sennosides/Docusate Sodium [Dok 1 each PO DAILY 05/22/19 05/22/19 05/14/19 Plus Tablet] bisacodyL [Dulcolax] 5 mg PO DAILY PRN 05/22/19 05/22/19 05/14/19 Allergies Allergy/AdvReac Type Severity Reaction Status Date / Time No Known Allergies Allergy Verified 05/21/19 16:45 ED Review of Systems ROS: Stated complaint: FALL Other details as noted in HPI Comment: All other systems reviewed and negative ED Past Medical Hx - Past Medical History Hx Hypertension: Yes (No meds yet.) Hx Kidney Stones: Yes Hx COPD: Yes Hx HIV: No - Social History Smoking Status: Former Smoker - Medications Home Medications: Home Medications Medication Instructions Recorded Confirmed Last Taken Type Acetaminophen [Tylenol] 500 mg PO PRN PRN 05/21/19 05/28/19 05/27/19 History Apalutamide [Erleada] 240 mg PO DAILY 05/21/19 05/28/19 05/27/19 History Budesonide/Formoterol Fumarate 2 puff IH DAILY 05/21/19 05/28/19 Unknown History [Symbicort 80-4.5 Mcg Inhaler] Tamsulosin [Flomax] 0.4 mg PO QHS 05/21/19 05/28/19 05/26/19 History Albuterol Sulfate [Proventil Hfa] 2 puff IH PRN PRN 05/22/19 05/28/19 05/27/19 18:00 History Cholecalciferol (Vitamin D3) 5,000 unit PO DAILY 05/22/19 05/22/19 05/14/19 History [Vitamin D3 5,000 UNIT] Magnesium 500 mg PO DAILY 05/22/19 05/22/19 05/14/19 History Om3/Dha/Epa/Cod Liver Oil/A/D3 1 each PO DAILY 05/22/19 05/22/19 05/14/19 History [Cod Liver Oil Softgel] Sennosides/Docusate Sodium [Dok 1 each PO DAILY 05/22/19 05/22/19 05/14/19 History Plus Tablet] bisacodyL [Dulcolax] 5 mg PO DAILY PRN 05/22/19 05/22/19 05/14/19 History ED Physical Exam - General Limitations: No Limitations General appearance: alert, in no apparent distress - Head Head exam: Present: atraumatic, normocephalic - Eye Eye exam: Present: normal appearance, PERRL, EOMI - ENT ENT exam: Present: normal orophraynx, mucous membranes moist - Neck Neck exam: Present: normal inspection - Respiratory Respiratory exam: Present: normal lung sounds bilaterally. Absent: respiratory distress, wheezes, rales, rhonchi - Cardiovascular Cardiovascular Exam: Present: regular rate, normal rhythm. Absent: systolic m urmur, diastolic murmur, rubs, gallop - GI/Abdominal GI/Abdominal exam: Present: soft, normal bowel sounds - Rectal Rectal exam: Present: deferred - Extremities Exam Extremities exam: Present: normal inspection - Expanded Lower Extremity Exam Left Hip exam: Present: tenderness. Absent: full ROM, laceration, ecchymosis - Back Exam Back exam: Present: normal inspection - Neurological Exam Neurological exam: Present: alert, oriented X3 - Psychiatric Psychiatric exam: Present: normal affect, normal mood - Skin Skin exam: Present: warm, dry, intact, normal color. Absent: rash ED Course Vital Signs 03/19/20 03/19/20 03/19/20 17:17 17:35 18:34 Temperature 99.0 F Pulse Rate 88 Respiratory 16 18 16 Rate Blood Pressure 170/86 [Left] O2 Sat by Pulse 96 96 Oximetry 03/19/20 18:35 Temperature Pulse Rate Respiratory 16 Rate Blood Pressure [Left] O2 Sat by Pulse Oximetry ED Medical Decision Making - Lab Data Result diagrams: 03/19/20 17:27 03/19/20 17:27 - Radiology Data [facility] [address] [place] [address] XRay Report Signed Patient: DIMITRI UPTON MR#: [id number] : 1945 Acct:[id number] Age/Sex: 74 / M ADM Date: 03/19/20 Loc: ED Attending Dr: Ordering Physician: PEEWEE DILLARD MD Date of Service: 03/19/20 Procedure(s): XR hip 2-3V LT Accession Number(s): [id number] cc: PEEWEE DILLARD MD Fluoro Time In Minutes: Left hip 3 views INDICATION: Left hip pain. IMPRESSION: There is a subcapital left femoral neck fracture in the setting of moderate to severe osteopenia. No dislocation of the left femoral head. Signer Name: Toño Sandoval MD Signed: 03/19/2020 6:16 PM Workstation Name: [id number] Ordering Physician: PEEWEE DILLARD MD Date of Service: 03/19/20 Procedure(s): XR chest 1V ap Accession Number(s): [id number] cc: PEEWEE DILLARD MD Fluoro Time In Minutes: Chest single view INDICATION: Chest pain IMPRESSION: Ill-defined densities within both lower lungs. No large pneumothorax identified. No pleural effusion. Signer Name: Toño Sandoval MD Signed: 03/19/2020 6:10 PM Workstation Name: [email or web address] - Medical Decision Making Discussed case with Dr. Cavanaugh. Patient will be admitted to the hospitalist service. Critical care attestation.: If time is entered above; I have spent that time in minutes in the direct care of this critically ill patient, excluding procedure time. ED Disposition Clinical Impression: Fracture of femoral neck, left Qualifiers: Encounter type: initial encounter Fracture type: closed Qualified Code(s): S72.002A - Fracture of unspecified part of neck of left femur, initial encounter for closed fracture Disposition: OP ADMIT IP TO THIS HOSP Is pt being admited?: Yes Does the pt Need Aspirin: No Condition: Stable Time of Disposition: 18:51
[2020-03-19 19:03] LABS: Basophils % (Manual) 0 % (0.0-1.8); Eosinophils % (Manual) 0 % (0.0-4.3); Total Cells Counted 100
[2020-03-19 19:04] LABS: RBC Morphology Normal
[2020-03-19] MEDS ORDERED: ACETAMINOPHEN 500 MG PO PRN (21:56)
[2020-03-19] MEDS ORDERED: ALBUTEROL 8.5 GM MDI INHALATION IH PRN (21:56)
--- NOTE | 2020-03-19 21:56 | History and Physical Report ---
History of Present Illness Date of examination: 03/19/20 Date of admission: 03/19/20 19:50 Chief complaint: Left hip pain after ground-level fall History of present illness: 74-year-old male with history of COPD BPH and prostate cancer presents with left hip pain. Patient apparently fell after tripping. Has left hip pain which is about 8 on a scale of 1-10 sharp in nature. Exacerbated with any movement. Relieved by rest. No fever chills or known exposure to coronavirus. No shortness of breath or chest pain. Patient is diagnosed with a left rib fracture in the emergency room after x-rays. - Past Medical History Hypertension: Yes (No meds yet.) Kidney Stones: Yes COPD: Yes Surgical history Unavailable Unavailable - Social History Smoking Status: Former Smoker Family history - Medications Home Medications: Home Medications Medication Instructions Recorded Confirmed Last Taken Type Acetaminophen [Tylenol] 500 mg PO PRN PRN 05/21/19 05/28/19 05/27/19 History Apalutamide [Erleada] 240 mg PO DAILY 05/21/19 05/28/19 05/27/19 History Budesonide/Formoterol Fumarate 2 puff IH DAILY 05/21/19 05/28/19 Unknown History [Symbicort 80-4.5 Mcg Inhaler] Tamsulosin [Flomax] 0.4 mg PO QHS 05/21/19 05/28/19 05/26/19 History Albuterol Sulfate [Proventil Hfa] 2 puff IH PRN PRN 05/22/19 05/28/19 05/27/19 18:00 History Cholecalciferol (Vitamin D3) 5,000 unit PO DAILY 05/22/19 05/22/19 05/14/19 History [Vitamin D3 5,000 UNIT] Magnesium 500 mg PO DAILY 05/22/19 05/22/19 05/14/19 History Om3/Dha/Epa/Cod Liver Oil/A/D3 1 each PO DAILY 05/22/19 05/22/19 05/14/19 History [Cod Liver Oil Softgel] Sennosides/Docusate Sodium [Dok 1 each PO DAILY 05/22/19 05/22/19 05/14/19 History Plus Tablet] bisacodyL [Dulcolax] 5 mg PO DAILY PRN 05/22/19 05/22/19 05/14/19 History Review of Systems ROS: Stated complaint: FALL Other details as noted in HPI Comment: All other systems reviewed and negative Medications and Allergies Allergies Allergy/AdvReac Type Severity Reaction Status Date / Time No Known Allergies Allergy Verified 05/21/19 16:45 Home Medications Medication Instructions Recorded Confirmed Last Taken Type Acetaminophen [Tylenol] 500 mg PO PRN PRN 05/21/19 05/28/19 05/27/19 History Apalutamide [Erleada] 240 mg PO DAILY 05/21/19 05/28/19 05/27/19 History Budesonide/Formoterol Fumarate 2 puff IH DAILY 05/21/19 05/28/19 Unknown History [Symbicort 80-4.5 Mcg Inhaler] Tamsulosin [Flomax] 0.4 mg PO QHS 05/21/19 05/28/19 05/26/19 History Albuterol Sulfate [Proventil Hfa] 2 puff IH PRN PRN 05/22/19 05/28/19 05/27/19 18:00 History Cholecalciferol (Vitamin D3) 5,000 unit PO DAILY 05/22/19 05/22/19 05/14/19 History [Vitamin D3 5,000 UNIT] Magnesium 500 mg PO DAILY 05/22/19 05/22/19 05/14/19 History Om3/Dha/Epa/Cod Liver Oil/A/D3 1 each PO DAILY 05/22/19 05/22/19 05/14/19 History [Cod Liver Oil Softgel] Sennosides/Docusate Sodium [Dok 1 each PO DAILY 05/22/19 05/22/19 05/14/19 History Plus Tablet] bisacodyL [Dulcolax] 5 mg PO DAILY PRN 05/22/19 05/22/19 05/14/19 History Exam - Constitutional Vitals: Temp Pulse Resp BP Pulse Ox 99.0 F 89 18 132/88 96 03/19/20 17:35 03/19/20 21:18 03/19/20 21:18 03/19/20 21:18 03/19/20 21:18 General appearance: Present: mild distress, well-nourished - EENT Eyes: Present: PERRL ENT: hearing intact, clear oral mucosa - Neck Neck: Present: supple, normal ROM - Respiratory Respiratory effort: normal Respiratory: bilateral: CTA - Cardiovascular Heart rate: 78 Rhythm: regular Heart Sounds: Present: S1 & S2. Absent: rub, click - Extremities Extremities: no ischemia, pulses intact, pulses symmetrical, No edema, abnormal (Decreased range of motion at the left hip joint. Abducted and externally rotated.) Extremity abnormal: other Peripheral Pulses: within normal limits - Abdominal General gastrointestinal: Present: soft, non-tender, non-distended, normal bowel sounds Male genitourinary: Present: normal - Integumentary Integumentary: Present: clear, warm, dry - Musculoskeletal Musculoskeletal: gait normal, strength equal bilaterally - Psychiatric Psychiatric: appropriate mood/affect, intact judgment & insight - Neurologic Neurologic: CNII-XII intact, moves all extremities Results - Labs CBC & Chem 7: 03/20/20 04:24 03/20/20 04:24 Labs: Laboratory Last Values WBC 12.1 K/mm3 (4.5-11.0) H 03/19/20 17:27 RBC 3.79 M/mm3 (3.65-5.03) 03/19/20 17:27 Hgb 11.6 gm/dl (11.8-15.2) L 03/19/20 17: Hct 32.7 % (35.5-45.6) L 03/19/20 17:27 MCV 86 fl (84-94) 03/19/20 17:27 MCH 31 pg (28-32) 03/19/20 17:27 MCHC 35 % (32-34) H 03/19/20 17:27 RDW 14.1 % (13.2-15.2) 03/19/20 17:27 Plt Count 192 K/mm3 (140-440) 03/19/20 17:27 Add Manual Diff Complete 03/19/20 17: Total Counted 100 03/19/20 17: Seg Neutrophils % Belt Machine Operator 03/19/20 17: Seg Neuts % (Manual) 90.0 % (40.0-70.0) H 03/19/20 17:27 Band Neutrophils % 0 % 03/19/20 17:27 Lymphocytes % (Manual) 4.0 % (13.4-35.0) L 03/19/20 17:27 Reactive Lymphs % (Man) 0 % 03/19/20 17:27 Monocytes % (Manual) 6.0 % (0.0-7.3) 03/19/20 17:27 Eosinophils % (Manual) 0 % (0.0-4.3) 03/19/20 17:27 Basophils % (Manual) 0 % (0.0-1.8) 03/19/20 17:27 Metamyelocytes % 0 % 03/19/20 17: Myelocytes % 0 % 03/19/20 17: Promyelocytes % 0 % 03/19/20 17:27 Blast Cells % 0 % 03/19/20 17: Nucleated RBC % Not Reportable 03/19/20 17: Seg Neutrophils # Man 10.9 K/mm3 (1.8-7.7) H 03/19/20 17: Band Neutrophils # 0.0 K/mm3 03/19/20 17: Lymphocytes # (Manual) 0.5 K/mm3 (1.2-5.4) L 03/19/20 17:27 Abs React Lymphs (Man) 0.0 K/mm3 03/19/20 17: Monocytes # (Manual) 0.7 K/mm3 (0.0-0.8) 03/19/20 17: Eosinophils # (Manual) 0.0 K/mm3 (0.0-0.4) 03/19/20 17: Basophils # (Manual) 0.0 K/mm3 (0.0-0.1) 03/19/20 17:27 Metamyelocytes # 0.0 K/mm3 03/19/20: Myelocytes # 0.0 K/mm3 03/19/20 17: Promyelocytes # 0.0 K/mm3 03/19/20 17:27 Blast Cells # 0.0 K/mm3 03/19/20 17:27 WBC Morphology Not Reportable 03/19/20 17:27 Hypersegmented Neuts Not Reportable 03/19/20 17: Hyposegmented Neuts Not Reportable 03/19/20 17:27 Hypogranular Neuts Not Reportable 03/19/20 17:27 Smudge Cells Not Reportable 03/19/20 17:27 Toxic Granulation Not Reportable 03/19/20 17:27 Toxic Vacuolation Not Reportable 03/19/20 17:27 Dohle Bodies Not Reportable 03/19/20 17:27 Pelger-Huet Anomaly Not Reportable 03/19/20 17:27 Frank Rods Not Reportable 03/19/20 17:27 Platelet Estimate Not Reportable 03/19/20 17:27 Clumped Platelets Not Reportable 03/19/20 17:27 Plt Clumps, EDTA Not Reportable 03/19/20 17:27 Large Platelets Not Reportable 03/19/20 17:27 Giant Platelets Not Reportable 03/19/20 17:27 Platelet Satelliting Not Reportable 03/19/20 17:27 Plt Morphology Comment Not Reportable 03/19/20 17:27 RBC Morphology Normal 03/19/20 17:27 Dimorphic RBCs Not Reportable 03/19/20 17:27 Polychromasia Not Reportable 03/19/20 17:27 Hypochromasia Not Reportable 03/19/20 17:27 Poikilocytosis Not Reportable 03/19/20 17:27 Anisocytosis Not Reportable 03/19/20 17:27 Microcytosis Not Reportable 03/19/20 17:27 Macrocytosis Not Reportable 03/19/20 17:27 Spherocytes Not Reportable 03/19/20 17:27 Pappenheimer Bodies Not Reportable 03/19/20 17:27 Sickle Cells Not Reportable 03/19/20 17:27 Target Cells Not Reportable 03/19/20 17:27 Tear Drop Cells Not Reportable 03/19/20 17:27 Ovalocytes Not Reportable 03/19/20 17:27 Helmet Cells Not Reportable 03/19/20 17:27 [place] Bodies Not Reportable 03/19/20 17:27 [place] Rings Not Reportable 03/19/20 17:27 [place] Cells Not Reportable 03/19/20 17:27 Bite Cells Not Reportable 03/19/20 17:27 Crenated Cell Not Reportable 03/19/20 17:27 Elliptocytes Not Reportable 03/19/20 17:27 Acanthocytes (Spur) Not Reportable 03/19/20 17:27 Rouleaux Not Reportable 03/19/20 17:27 Hemoglobin C Crystals Not Reportable 03/19/20 17:27 Schistocytes Not Reportable 03/19/20 17:27 Malaria parasites Not Reportable 03/19/20 17:27 Jones Bodies Not Reportable 03/19/20 17:27 Hem Pathologist Commnt No 03/19/20 17:27 PT 13.3 Sec. (12.2-14.9) 03/19/20 17:27 INR 1.00 (0.87-1.13) 03/19/20 17:27 APTT 21.8 Sec. (24.2-36.6) L 03/19/20 17:27 Sodium 143 mmol/L (137-145) 03/19/20 17:27 Potassium 3.8 mmol/L (3.6-5.0) 03/19/20 17:27 Chloride 104.0 mmol/L (98-107) 03/19/20 17:27 Carbon Dioxide 21 mmol/L (22-30) L 03/19/20 17:27 Anion Gap 22 mmol/L 03/19/20 17:27 BUN 18 mg/dL (9-20) 03/19/20 17:27 Creatinine 1.1 mg/dL (0.8-1.3) 03/19/20 17:27 Estimated GFR > 60 ml/min 03/19/20 17:27 BUN/Creatinine Ratio 16 % 03/19/20 17:27 Glucose 116 mg/dL (75-100) H 03/19/20 17:27 Calcium 9.3 mg/dL (8.4-10.2) 03/19/20 17:27 Allergies No Known Allergies Allergy (Verified 05/21/19 16:45) Home Medications Medication Instructions Recorded Confirmed Type Acetaminophen [Tylenol] 500 mg PO PRN PRN 05/21/19 05/28/19 History Apalutamide [Erleada] 240 mg PO DAILY 05/21/19 05/28/19 History Budesonide/Formoterol Fumarate 2 puff IH DAILY 05/21/19 05/28/19 History [Symbicort 80-4.5 Mcg Inhaler] Tamsulosin [Flomax] 0.4 mg PO QHS 05/21/19 05/28/19 History Albuterol Sulfate [Proventil Hfa] 2 puff IH PRN PRN 05/22/19 05/28/19 History Cholecalciferol (Vitamin D3) 5,000 unit PO DAILY 05/22/19 05/22/19 History [Vitamin D3 5,000 UNIT] Magnesium 500 mg PO DAILY 05/22/19 05/22/19 History Om3/Dha/Epa/Cod Liver Oil/A/D3 1 each PO DAILY 05/22/19 05/22/19 History [Cod Liver Oil Softgel] Sennosides/Docusate Sodium [Dok 1 each PO DAILY 05/22/19 05/22/19 History Plus Tablet] bisacodyL [Dulcolax] 5 mg PO DAILY PRN 05/22/19 05/22/19 History I & O 03/18/20 03/19/20 03/20/20 03/21/20 06:59 06:59 06:59 06:59 Intake Total 750 Balance 750 Weight 65.1 kg Intake: Oral 750 Other: Total, Intake Amount 750 Voiding Method Urinal # Voids Void 1 Medications Acetaminophen (Tylenol) 650 mg PO Q4H PRN PRN Reason: Pain MILD(1-3)/Fever >100.5/MAYEN Albuterol (Proventil) 2.5 mg IH Q4HRT PRN PRN Reason: Shortness Of Breath Arformoterol Tartrate (Brovana Nebu) 15 mcg IH Q12HRT DIPIKA Bisacodyl (Dulcolax) 5 mg PO DAILY PRN PRN Reason: Constipation Budesonide (Pulmicort) 0.5 mg IH Q12HRT DIPIKA Famotidine (Pepcid) 20 mg IV BID [facility] Last Admin: 03/19/20 23:21 Dose: 20 mg Documented by: PILIMANEMY Heparin Sodium (Porcine) (Heparin) 5,000 unit SUB-Q Q12HR DIPIKA Hydromorphone HCl (Dilaudid) 1 mg IV Q3H PRN PRN Reason: Pain , Severe (7-10) Sodium Chloride (Nacl 0.9% 1000 Ml) 1,000 mls @ 75 mls/hr IV DIRECT [facility] Last Admin: 03/19/20 23:22 Dose: 75 mls/hr Documented by: SRAJAMANIC Infusion/Titration Document 03/19/20 23:22 SR (Rec: 03/19/20 23:22 SR [id number]) Titration Intake Container Volume 1,000 Volume Adjustment/Waste 0 Titration Dosing IV Rate 75 Increase/Decrease Started Cumulative Dose Not Applicable Elapsed Time 0m Magnesium Oxide (Mag-Ox) 400 mg PO QDAY [facility] Miscellaneous Medication (Apalutamide [Erleada]) 240 mg PO DAILY [facility] Ondansetron HCl (Zofran) 4 mg IV Q8H PRN PRN Reason: Nausea And Vomiting Oxycodone/Acetaminophen (Percocet 5/325) 1 tab PO Q6H PRN PRN Reason: Pain, Moderate (4-6) Last Admin: 03/19/20 23:21 Dose: 1 tab Documented by: ALEXX ABBASI Pain Assessment Document 03/19/20 23:21 SR (Rec: 03/19/20 23:22 SR [id number]) Pain Any Pain Now? Yes Pain Management Assessment Location Severity scale (0 -10) 7 Scale Used 0-10 Score Pain Management Goal(0-10) 0 Respiratory Rate (12-24 breaths/min) 17 Level of Sedation (2) Co-operative, oriented Sedation Score: 2 Management Techniques Taken to Relieve Distraction,Medication Pain Re-Assess: [facility] Pain Assessment Document 03/20/20 00:21 SR (Rec: 03/20/20 05:44 SR [id number]) Pain Any Pain Now? No Pain Management Reassessment Location Severity scale (0 -10) 0 Scale Used 0-10 Score Pain Management Goal(0-10) 0 Respiratory Rate (12-24 breaths/min) 17 Level of Sedation (2) Co-operative, oriented Sedation Score: 2 Management Techniques Taken to Relieve Distraction,Medication Pain Senna/Docusate Sodium (Senokot S) 1 tab PO DAILY [facility] Sodium Chloride (Sodium Chloride Flush Syringe 10 Ml) 10 ml IV BID [facility] Sodium Chloride (Sodium Chloride Flush Syringe 10 Ml) 10 ml IV PRN PRN PRN Reason: LINE FLUSH Tamsulosin HCl (Flomax) 0.4 mg PO QHS [facility] Last Admin: 03/19/20 23:21 Dose: 0.4 mg Documented by: ALEXX Discontinued Medications Albuterol (Proair) 2 puff IH PRN PRN PRN Reason: Shortness Of Breath Ketorolac Tromethamine (Toradol) 15 mg IV ONCE ONE Stop: 03/19/20 17:15 Last Admin: 03/19/20 18:34 Dose: 15 mg Documented by: IVA ABBASI Pain Assessment Document 03/19/20 18:34 AM (Rec: 03/19/20 18:34 AM [id number]) Pain Any Pain Now? Yes Location Severity scale (0 -10) 6 Scale Used 0-10 Score Pain Management Goal(0-10) 0 Respiratory Rate (12-24 breaths/min) 16 Level of Sedation (2) Co-operative, oriented Sedation Score: 2 Management Techniques Taken to Relieve Medication Pain Side Effects of Treatment None Re-Assess: [facility] Pain Assessment Document 03/19/20 19:04 JG (Rec: 03/19/20 19:47 JG [id number]) Pain Any Pain Now? Yes Pain Management Assessment Location Severity scale (0 -10) 0 Scale Used 0-10 Score Miscellaneous Medication (Acetaminophen [Tylenol]) 500 mg PO PRN PRN PRN Reason: Pain, Mild (1-3) Miscellaneous Medication (Budesonide/Formoterol Fumarate [Symbicort 80-4.5 Mcg Inhaler]) 2 puff IH DAILY DIPIKA Morphine Sulfate (Morphine) 4 mg IV ONCE ONE Stop: 03/19/20 17:15 Last Admin: 03/19/20 18:35 Dose: 4 mg Documented by: IVA [facility] Pain Assessment Document 03/19/20 18:35 AM (Rec: 03/19/20 18:36 AM [id number]) Pain Any Pain Now? Yes Pain Management Reassessment Location Severity scale (0 -10) 6 Scale Used 0-10 Score Description Aching Pain Management Goal(0-10) 0 Respiratory Rate (12-24 breaths/min) 16 Level of Sedation (2) Co-operative, oriented Sedation Score: 2 Re-Assess: [facility] Pain Assessment Document 03/19/20 19:05 SR (Rec: 03/20/20 07:25 SR [id number]) Pain Any Pain Now? No Pain Management Reassessment Location Severity scale (0 -10) 0 Scale Used 0-10 Score Pain Management Goal(0-10) 0 Respiratory Rate (12-24 breaths/min) 17 Level of Sedation (2) Co-operative, oriented Sedation Score: 2 Management Techniques Taken to Relieve Distraction,Medication Pain Ondansetron HCl (Zofran) 4 mg IV ONCE ONE Stop: 03/19/20 17:15 Last Admin: 03/19/20 18:34 Dose: 4 mg Documented by: AMERIWETHE Nursing Notes 03/20/20 04:01 Nurse Note by EUGENE JACKSON 21:55: patient transferred from ER to room 321 via stretcher. patient alrt,orientedx3. patient in room air and breathing even,non-labored. patient chest clear. abdomen soft. h/o fall and fracture neck left femur. tenderness over left hip area. Patient IV 20G right FA intact and infusing NS @75ML/HR. 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 side rail on . Patient informed to stay NPO after midnight. Initialized on 03/20/20 04:01 - END OF NOTE 03/19/20 19:16 Nurse Note by ALEXANDRA HOLT Bedside report given to Carlos. Initialized on 03/19/20 19:16 - END OF NOTE 03/19/20 17:47 Nurse Note by ALEXANDRA HOLT [place] [employer] [place] falling on his left hip with confirmed hair line Femur neck fracture noted by X-Rays done by primary care provider. The patient sister was also here and she provided a disc with X- rays from the primary care doctor that was given to Dr. Smith. The patient has his left leg in position of comfort with a GCS of 15 and all other vitals within normal limits other than a elevated BP of 170/86. The patient sister would like to be contacted about the progress of her brother as decisions are made about future treatment while in the hospital. She is in the patient demographics for phone number. Initialized on 03/19/20 17:47 - END OF NOTE Orders 03/19/20 Consult to Case Management [CONS] Routine Services Needed at Discharge: Home Health Services Physical Therapy Comment:: Subacute rehab 03/19/20 17:14 Saline lock STAT Physician Instructions: Ketorolac [Toradol] 15 mg IV ONCE ONE Morphine 4 mg IV ONCE ONE Ondansetron [Zofran] 4 mg IV ONCE ONE XR chest 1V ap Stat Is Patient : Yes Mode Of Transportation: Reason For Exam: surgical clearance Order Site: [facility] Medical Order Site:: [facility] Medical Order Site:: [facility] Portable: Yes 03/19/20 17:15 EKG (12 lead) Stat Comment: Mode Of Transportation: Physician Instructions: Reason For Exam: surgical clearance Who will perform the EKG?: ED Order Site: [facility] Technician to do EKG .once Physician Instructions: 03/19/20 17:27 Acanthocytes Stat Anisocytosis Stat Frank Rods Stat Band Neutrophils # (Manual) Stat Band Neutrophils % (Manual) Stat Basic Metabolic Panel Stat Comment: Specimen: Send someone from the department to collect Basophilic Stippling Stat Basophils # (Manual) Stat Basophils % (Manual) Stat Bite Cells Stat Blastocytes # (Manual) Stat Blastocytes % (Manual) Stat Kristy Cells Stat [place] Rings Stat Complete Blood Count Auto Diff Stat Comment: Specimen: Send someone from the department to collect Crenated RBC Stat Dimorphic RBC Stat Dohle Bodies Stat Elliptocytes Stat Eosinophils # (Manual) Stat Eosinophils % (Manual) Stat Giant Platelets Stat Jones Bodies Stat Helmet Cells Stat Hgb C Crystals Stat [place] Bodies Stat Hypersegmented Neutrophils Stat Hypersegmented Polys Stat Hypochromasia Stat Hypogranular Neutrophils Stat Hyposegmented Neutrophils Stat Lymphocytes # (Manual) Stat Lymphocytes % (Manual) Stat Macrocytosis Stat Malaria Stat Metamyelocytes # (Manual) Stat Metamyelocytes % (Manual) Stat Microcytosis Stat Monocytes # (Manual) Stat Monocytes % (Manual) Stat Myelocytes # (Manual) Stat Myelocytes % (Manual) Stat Nucleated Red Blood Cells Stat Ovalocytes Stat Pappenheimer Bodies Stat Partial Thromboplastin Time Stat Comment: Specimen: Send someone from the department to collect Pathology Comment Stat Pelger-Huet Anomaly Stat Platelet Estimate Stat Platelet Morphology Stat Poikilocytosis Stat Polychromasia Stat Promyelocytes # (Manual) Stat Promyelocytes % (Manual) Stat Prothrombin Time INR Stat Comment: Specimen: Send someone from the department to collect RBC Morphology Stat Reactive Lymphocytes # Stat Reactive Lymphocytes % Stat Rouleaux Stat Schistocytes Stat Segmented Neutrophils % (Man) Stat Segmented Neutrophils#(Manual) Stat Sickle Cells Stat Smudge Cells Stat Spherocytes Stat Stomatocytes Stat Target Cells Stat Tear Drop Cells Stat Toxic Granulation Stat Toxic Vacuolation Stat WBC Morphology Stat 03/19/20 17:30 XR hip 2-3V LT Stat Is Patient : Yes Mode Of Transportation: Reason For Exam: hip fracture Order Site: [facility] Medical Order Site:: [facility] Medical Order Site:: [facility] 03/19/20 17:45 IV insertion - peripheral ONCE Physician Instructions: 03/19/20 18:50 Call Consult Provider Once Physician Instructions: Consult to Physician [CONS] Urgent Comment: Consulting Provider: RAMAN PIRES Physician Instructions: Reason For Exam: left femoral neck fracture 03/19/20 18:52 Notify Provider PRN Physician Instructions: See intervention text. Nursing Standard Care CONT Physician Instructions: Resuscitation status . ORDERED Comment: Physician Instructions: Resuscitation Status: Full Code ED Decision to Admit Routine Status: INPT expect 2 or more [place] Level of Care: 3B Surgical Admitting Provider: MIGUEL MANZO 03/19/20 18:53 Admit To Routine Status: INPT expect 2 or more [place] Level of Care: 3B Surgical Admitting Provider: MIGUEL MANZO Chemical VTE Prophylaxis: Yes VTE Risk Level: Low (1) 03/19/20 18:54 Educate Patient on VTE Risk ONCE Physician Instructions: Notify Provider VTE PRN Physician Instructions: Sequential Compression Device CONT Physician Instructions: 03/19/20 21:56 Acetaminophen [Tylenol] 500 mg PO PRN PRN Reason of Need for Non-Formulary Drug: Pt. Own Med Unavailable Albuterol Mdi (or & Nicu Only) [Proair] 2 puff IH PRN PRN bisacodyL [Dulcolax] 5 mg PO DAILY PRN 03/19/20 22:00 Budesonide/Formoterol Fumarate [Symbicort 80-4.5 Mcg Inhaler] 2 puff IH DAILY Reason of Need for Non-Formulary Drug: Pt. Own Med Unavailable Tamsulosin [Flomax] 0.4 mg PO QHS 03/19/20 22:03 Aerosol Treatments .PER PROTOCOL Resp Assess and Treat Protocol .See Protocol 03/19/20 22:04 Nursing Standard Care CONT Physician Instructions: Resuscitation status . ORDERED Comment: Physician Instructions: Resuscitation Status: Full Code Acetaminophen [Tylenol] 650 mg PO Q4H PRN HYDROmorphone [Dilaudid] 1 mg IV Q3H PRN Ondansetron [Zofran] 4 mg IV Q8H PRN Sodium Chloride 0.9% Int [Sodium Chloride Flush Syringe 10 ml] 10 ml IV PRN PRN oxyCODONE /ACETAMINOPHEN [Percocet 5/325] 1 tab PO Q6H PRN 03/19/20 22:15 Sodium Chloride 0.9% 1000 ml [NaCl 0.9% 1000 ml] 1,000 ml IV DIRECT 03/19/20 22:20 ALBUTEROL NEB's [Proventil] 2.5 mg IH Q4HRT PRN 03/19/20 23:00 Famotidine [Pepcid] 20 mg IV BID 03/20/20 00:01 NPO after Midnight Diet [DIET] Physician Instructions: Spiritism/Cultural Requests: None 03/20/20 04:24 Complete Blood Count Auto Diff Routine Comment: Specimen: Send someone from the department to collect Comprehensive Metabolic Panel Routine Comment: Specimen: Send someone from the department to collect Hemoglobin A1C Routine Comment: Specimen: Send someone from the department to collect 03/20/20 08:00 Arformoterol Nebu [Brovana Nebu] 15 mcg IH Q12HRT Budesonide [Pulmicort] 0.5 mg IH Q12HRT 03/20/20 10:00 Apalutamide [Erleada] 240 mg PO DAILY Reason of Need for Non-Formulary Drug: Use Patient's Own Med Heparin 5,000 unit SUB-Q Q12HR Magnesium Oxide [Mag-Ox] 400 mg PO QDAY Sennosides/Docusate [Senokot S] 1 tab PO DAILY Sodium Chloride 0.9% Int [Sodium Chloride Flush Syringe 10 ml] 10 ml IV BID 03/20/20 Lunch Regular Diet [DIET] Physician Instructions: Spiritism/Cultural Requests: None Patient Problems Fracture of femoral neck, left (Acute) Vital Signs Temp Pulse Resp BP BP Pulse Ox 03/20/20 07:20 98.8 F 73 20 167/81 94 03/20/20 04:09 98.9 F 65 18 162/82 94 03/20/20 00:21 17 03/19/20 23:53 98.4 F 69 17 173/78 95 03/19/20 23:21 17 03/19/20 22:24 140/67 100 03/19/20 22:04 98.5 F 77 18 182/79 95 03/19/20 21:41 68 11 L 140/67 97 03/19/20 21:31 70 15 140/67 95 03/19/20 21:21 69 12 140/67 96 03/19/20 21:18 89 18 132/88 96 03/19/20 21:11 78 12 140/67 97 03/19/20 21:00 72 13 140/67 95 03/19/20 20:51 71 15 149/63 95 03/19/20 20:41 68 13 149/63 95 03/19/20 20:31 71 16 149/63 94 03/19/20 20:21 73 14 149/63 95 03/19/20 20:11 19 140/65 94 03/19/20 20:00 16 140/65 94 03/19/20 19:51 16 149/63 94 03/19/20 19:41 72 13 149/63 94 03/19/20 19:31 72 35 H 149/63 95 03/19/20 19:21 74 18 149/63 94 03/19/20 19:11 74 16 149/63 96 03/19/20 19:05 17 03/19/20 19:00 13 149/63 94 03/19/20 18:51 72 17 158/70 95 03/19/20 18:41 71 16 158/70 94 03/19/20 18:35 16 03/19/20 18:34 16 03/19/20 18:31 74 12 158/70 97 03/19/20 18:21 71 35 H 158/70 95 03/19/20 18:11 74 12 158/70 96 03/19/20 18:00 76 13 158/70 98 03/19/20 17:51 83 19 170/74 96 03/19/20 17:41 76 18 170/74 96 03/19/20 17:35 99.0 F 88 18 170/86 96 03/19/20 17:31 79 13 170/74 96 03/19/20 17:21 72 9 L 170/74 97 03/19/20 17:17 16 96 03/19/20 17:11 100 Laboratory Results 03/19/20 03/19/20 03/19/20 Range/Units 17:27 17:27 17:27 WBC 12.1 H (4.5-11.0) K/mm3 RBC 3.79 (3.65-5.03) M/mm3 Hgb 11.6 L (11.8-15.2) gm/dl Hct 32.7 L (35.5-45.6) % MCV 86 (84-94) fl MCH 31 (28-32) pg MCHC 35 H (32-34) % RDW 14.1 (13.2-15.2) % Plt Count 192 (140-440) K/mm3 Lymph % (Auto) (13.4-35.0) % [place] % (Auto) (0.0-7.3) % Eos % (Auto) (0.0-4.3) % Baso % (Auto) (0.0-1.8) % Lymph # (Auto) (1.2-5.4) K/mm3 [place] # (Auto) (0.0-0.8) K/mm3 Eos # (Auto) (0.0-0.4) K/mm3 Baso # (Auto) (0.0-0.1) K/mm3 Add Manual Diff Complete Total Counted 100 Seg Neutrophils % Belt Machine Operator Seg Neuts % (Manual) 90.0 H (40.0-70.0) % Band Neutrophils % 0 % Lymphocytes % (Manual) 4.0 L (13.4-35.0) % Reactive Lymphs % (Man) 0 % Monocytes % (Manual) 6.0 (0.0-7.3) % Eosinophils % (Manual) 0 (0.0-4.3) % Basophils % (Manual) 0 (0.0-1.8) % Metamyelocytes % 0 % Myelocytes % 0 % Promyelocytes % 0 % Blast Cells % 0 % Nucleated RBC % Not Reportable Seg Neutrophils # (1.8-7.7) K/mm3 Seg Neutrophils # Man 10.9 H (1.8-7.7) K/mm3 Band Neutrophils # 0.0 K/mm3 Lymphocytes # (Manual) 0.5 L (1.2-5.4) K/mm3 Abs React Lymphs (Man) 0.0 K/mm3 Monocytes # (Manual) 0.7 (0.0-0.8) K/mm3 Eosinophils # (Manual) 0.0 (0.0-0.4) K/mm3 Basophils # (Manual) 0.0 (0.0-0.1) K/mm3 Metamyelocytes # 0.0 K/mm3 Myelocytes # 0.0 K/mm3 Promyelocytes # 0.0 K/mm3 Blast Cells # 0.0 K/mm3 WBC Morphology Not Reportable Hypersegmented Neuts Not Reportable Hyposegmented Neuts Not Reportable Hypogranular Neuts Not Reportable Smudge Cells Not Reportable Toxic Granulation Not Reportable Toxic Vacuolation Not Reportable Dohle Bodies Not Reportable Pelger-Huet Anomaly Not Reportable Frank Rods Not Reportable Platelet Estimate Not Reportable Clumped Platelets Not Reportable Plt Clumps, EDTA Not Reportable Large Platelets Not Reportable Giant Platelets Not Reportable Platelet Satelliting Not Reportable Plt Morphology Comment Not Reportable RBC Morphology Normal Dimorphic RBCs Not Reportable Polychromasia Not Reportable Hypochromasia Not Reportable Poikilocytosis Not Reportable Anisocytosis Not Reportable Microcytosis Not Reportable Macrocytosis Not Reportable Spherocytes Not Reportable Pappenheimer Bodies Not Reportable Sickle Cells Not Reportable Target Cells Not Reportable Tear Drop Cells Not Reportable Ovalocytes Not Reportable Helmet Cells Not Reportable [place] Bodies Not Reportable [place] Rings Not Reportable Kristy Cells Not Reportable Bite Cells Not Reportable Crenated Cell Not Reportable Elliptocytes Not Reportable Acanthocytes (Spur) Not Reportable Rouleaux Not Reportable Hemoglobin C Crystals Not Reportable Schistocytes Not Reportable Malaria parasites Not Reportable Jones Bodies Not Reportable Hem Pathologist Commnt No PT 13.3 (12.2-14.9) Sec. INR 1.00 (0.87-1.13) APTT 21.8 L (24.2-36.6) Sec. Sodium 143 (137-145) mmol/L Potassium 3.8 (3.6-5.0) mmol/L Chloride 104.0 (98-107) mmol/L Carbon Dioxide 21 L (22-30) mmol/L Anion Gap 22 mmol/L BUN 18 (9-20) mg/dL Creatinine 1.1 (0.8-1.3) mg/dL Estimated GFR > 60 ml/min BUN/Creatinine Ratio 16 % Glucose 116 H (75-100) mg/dL Hemoglobin A1c (4-6) % Calcium 9.3 (8.4-10.2) mg/dL Total Bilirubin (0.1-1.2) mg/dL AST (5-40) units/L ALT (7-56) units/L Alkaline Phosphatase (35-129) units/L Total Protein (6.3-8.2) g/dL Albumin (3.9-5) g/dL Albumin/Globulin Ratio % 03/20/20 03/20/20 03/20/20 Range/Units 04:24 04:24 04:24 WBC 9.1 (4.5-11.0) K/mm3 RBC 3.75 (3.65-5.03) M/mm3 Hgb 11.4 L (11.8-15.2) gm/dl Hct 33.1 L (35.5-45.6) % MCV 88 (84-94) fl MCH 30 (28-32) pg MCHC 35 H (32-34) % RDW 13.9 (13.2-15.2) % Plt Count 188 (140-440) K/mm3 Lymph % (Auto) 15.6 (13.4-35.0) % [place] % (Auto) 6.9 (0.0-7.3) % Eos % (Auto) 1.2 (0.0-4.3) % Baso % (Auto) 0.4 (0.0-1.8) % Lymph # (Auto) 1.4 (1.2-5.4) K/mm3 [place] # (Auto) 0.6 (0.0-0.8) K/mm3 Eos # (Auto) 0.1 (0.0-0.4) K/mm3 Baso # (Auto) 0.0 (0.0-0.1) K/mm3 Add Manual Diff Total Counted Seg Neutrophils % 75.9 H Seg Neuts % (Manual) (40.0-70.0) % Band Neutrophils % % Lymphocytes % (Manual) (13.4-35.0) % Reactive Lymphs % (Man) % Monocytes % (Manual) (0.0-7.3) % Eosinophils % (Manual) (0.0-4.3) % Basophils % (Manual) (0.0-1.8) % Metamyelocytes % % Myelocytes % % Promyelocytes % % Blast Cells % % Nucleated RBC % Seg Neutrophils # 6.9 (1.8-7.7) K/mm3 Seg Neutrophils # Man (1.8-7.7) K/mm3 Band Neutrophils # K/mm3 Lymphocytes # (Manual) (1.2-5.4) K/mm3 Abs React Lymphs (Man) K/mm3 Monocytes # (Manual) (0.0-0.8) K/mm3 Eosinophils # (Manual) (0.0-0.4) K/mm3 Basophils # (Manual) (0.0-0.1) K/mm3 Metamyelocytes # K/mm3 Myelocytes # K/mm3 Promyelocytes # K/mm3 Blast Cells # K/mm3 WBC Morphology Hypersegmented Neuts Hyposegmented Neuts Hypogranular Neuts Smudge Cells Toxic Granulation Toxic Vacuolation Dohle Bodies Pelger-Huet Anomaly Frank Rods Platelet Estimate Clumped Platelets Plt Clumps, EDTA Large Platelets Giant Platelets Platelet Satelliting Plt Morphology Comment RBC Morphology Dimorphic RBCs Polychromasia Hypochromasia Poikilocytosis Anisocytosis Microcytosis Macrocytosis Spherocytes Pappenheimer Bodies Sickle Cells Target Cells Tear Drop Cells Ovalocytes Helmet Cells [place] Bodies [place] Rings Kristy Cells Bite Cells Crenated Cell Elliptocytes Acanthocytes (Spur) Rouleaux Hemoglobin C Crystals Schistocytes Malaria parasites Jones Bodies Hem Pathologist Commnt PT (12.2-14.9) Sec. INR (0.87-1.13) APTT (24.2-36.6) Sec. Sodium 137 (137-145) mmol/L Potassium 4.0 (3.6-5.0) mmol/L Chloride 102.8 (98-107) mmol/L Carbon Dioxide 27 (22-30) mmol/L Anion Gap 11 mmol/L BUN 17 (9-20) mg/dL Creatinine 1.0 (0.8-1.3) mg/dL Estimated GFR > 60 ml/min BUN/Creatinine Ratio 17 % Glucose 108 H (75-100) mg/dL Hemoglobin A1c 5.3 (4-6) % Calcium 9.0 (8.4-10.2) mg/dL Total Bilirubin 0.40 (0.1-1.2) mg/dL AST 13 (5-40) units/L ALT 7 (7-56) units/L Alkaline Phosphatase 71 (35-129) units/L Total Protein 6.6 (6.3-8.2) g/dL Albumin 3.6 L (3.9-5) g/dL Albumin/Globulin Ratio 1.2 % Assessments/Treatments ADL Assessment Start: 03/19/20 19:53 Freq: QSHIFT Status: Active Protocol: Document 03/19/20 22:00 SR (Rec: 10/10/20 03:53 SR [id number]) Activities of Daily Living Patient Activity Bedrest Activity Ability Modified Independent Tolerates Activity Fair Hygiene Care Performed PM Care Bathing Ability Moderate Assistance Dinner-percent consumed 75% Diet Tolerated Well Eating (Feeding) Ability Independent Voiding Method Urinal Bowel Pattern Normal Bowel Movement Frequency Every 2-4 Days Activity as ordered Start: 03/19/20 19:53 Freq: PRN Status: Active Protocol: Document 03/19/20 21:50 SR (Rec: 03/20/20 03:38 SR [id number]) Admission Assessment [facility] Start: 03/19/20 19:53 Freq: ONCE Status: Complete Protocol: Document 03/19/20 21:50 SR (Rec: 03/20/20 03:38 SR [id number]) Height and Weight Height 6 ft 3 in Weight 71.668 kg Weight Measurement Method Built in Bedscale General Questions Developmental Age 66+ Years Date of Arrival on Unit 03/20/20 Time of Arrival on Unit 21:55 Mode of Arrival Stretcher Support Person Zhao Jenisemichel Support Person Phone Number [phone] Family Code none Accompanied By ER-RN Relationship Patient -RN Chief Complaint Fall pain left hip area Onset of Chief Complaint 03/19/20 Self Treatment of Chief Complaint none History Provided By Patient Any Objection to Receiving Blood/Blood No Products? Did Patient Present With Stroke Symptoms No ? Deep Vein Thrombosis/Pulmonary Embolism No Present on Admission Advance Directives Advance Directives No Advance Directives Information Provided Yes Advance Directives on File No Living Will Yes Durable Power of Quantitative Software Engineer For Healthcare No Health Care Proxy No Communication Assessment Primary Language BERMUDIAN Preferred Language BERMUDIAN Concaver Required No Ability to Follow Directions Good Able to Read Yes Able to Write Yes Speech Pattern Clear,Appropriate Communication Tools N/A Bilateral Hearing Ability Normal Bilateral Visual Difficulty None Visual Assistive Devices None Teaching Recipient Patient Readiness To Learn Good Learning Preferences One-on-One Instruction Barriers to Learning No Barriers Patient Education Booklet Given and Yes Explained Response to Teaching Verbalize understanding Travel History Traveled outside of the country in the No last 30 days? COVID-19 Review of Systems PUI? No Respiratory Symptoms No symptoms Other COVID-19 Symptoms No symptoms Close contact with confirmed case of No COVID-19? Psychosocial Information Admitted From Emergency Dept Lives with: Alone Receiving Home Health Care No Hx Recreational Drug Use No Alcohol Use No Hx Tobacco Use No Smoking Status Never Smoker Spiritism/Cultural Requests None Gender ID/Sexual Orientation What is your gender identity? Identifies as male Do you think of yourself as: Straight or heterosexual Home Medications Did Patient Bring Own Medications No Pain History Hx Pain No Precautions Precautions Fall Prevention Stop-Bang Questionairre Do you snore loudly(louder than talking No or loud enough to heard?) Told you hold breath, gasp, choke during No sleep? Occasionally doze, feel groggy, fall No asleep during the day? Do you have or are you being treated for Yes high blood pressure? Body Mass Index(BMI) more than 35? No Age over 50 years old? Yes Neck circumference Female>16 or Male>17? No Gender Male? Yes Scored yes to 3 or more questions? Yes High Risk for REINIER Scored yes to 1 or 2 questions? No Scored 0 on all of the questions? No Diagnosed with REINIER? No High Risk for REINIER? Yes Admission Valuables Assessment Start: 03/19/20 19:53 Freq: ONCE Status: Complete Protocol: Document 03/19/20 21:50 SR (Rec: 03/20/20 03:38 SR [id number]) Valuables/Personal Items Personal Items/Valuables: Kept Cellphone,Clothing,Other Patient/family advised that valuables No should be sent home. Personal Items/Valuables Sent Home None Personal Items/Valuables To Hospital None Safe Denture Type None Hearing Aid with Patient None Basic Nursing Care For Fall Prevention Start: 03/19/20 19:53 Freq: QSHIFT Status: Active Protocol: Document 03/19/20 22:00 SR (Rec: 03/20/20 03:53 SR [id number]) ED Discharge Assessment Start: 03/19/20 16:45 Freq: Status: Discharge Protocol: Document 03/19/20 21:19 JG (Rec: 03/19/20 21:20 JG [id number]) Discharge Assessment Did this pt recieve Moderate Sedation No Was recieving unit notified of pt Yes readiness to transport? Name of person notified: Charge Nurse Pt transported to unit by: Wheelchair Pt transported by: molding machine setter Name of person responsible for transport Carlos to floor Does the pt need aspirin? No ED Past Medical History Start: 03/19/20 16:45 Freq: Status: Discharge Protocol: Document 10/09/20 17:32 AM (Rec: 03/19/20 17:32 AM [id number]) ED Past Medical History Hx COPD Yes Hx HIV No Hx Hypertension Yes: No meds yet. Hx Kidney Stones Yes ED Quick Triage Start: 03/19/20 16:45 Freq: Status: Discharge Protocol: Document 03/19/20 17:32 AM (Rec: 03/19/20 17:35 AM [id number]) ED Quick Triage Mode of arrival Stretcher Pt arrived by: Self/Family Source of Info patient,family Limitations No Limitations Description of Symptoms Patient slipped at the [employer] [place] while getting coffee falling on his left hip with confirmed hair line Femur neck fracture noted by X-Rays done by primary care provider. Date of Onset of Symptoms 03/19/20 Type of Emergency Trauma Acuity Level 3 - Urgent Chief Complaint Extremity Injury, Lower Assign to Area ED ED Secondary Triage Start: 03/19/20 16:45 Freq: Status: Discharge Protocol: Document 03/19/20 17:17 AM (Rec: 03/19/20 17:32 AM [id number]) ED Screening Assessment Left Hip Pain Scale 7 Pain Scale Used 0-10 Score Pain Description Aching,Intermittant Height 6 ft 3 in Weight 71.668 kg Weight Measurement Method Stretcher Scale Respiratory Rate (12-24 breaths/min) 16 O2 Sat by Pulse Oximetry (84-100 %) 96 History of Falls Immediate or Within 3 Yes Months Secondary Diagnosis No Ambulatory Aid None/BR/Wheelchair/Nurse Intravenous Therapy/IV Access Yes Gait/Transferring Normal/Bed Rest/Immobile Mental Status Oriented to Own Ability Total Score 45 Appropriate Fall Risk High Risk Any Objection to Receiving Blood/Blood No Products? Smoking Status Former Smoker Are You Able to Assess Patient? No 1) Wish to be : No Tetanus Last Received Not sure when last received Did you receive childhood immunizations? Yes Traveled outside of the country in the No last 30 days? Close contact with confirmed case of No COVID-19? Respiratory Symptoms No symptoms Other COVID-19 Symptoms No symptoms ED Vital Signs Start: 03/19/20 16:45 Freq: Q2H Status: Discharge Protocol: Document 03/19/20 17:35 AM (Rec: 03/19/20 17:41 AM [id number]) Vitals/Sepsis Vitals for Shift Protocol Yes Temperature (97.6 F-99.6 F) 99.0 F Temperature Source Oral Pulse Rate (60-90 beats/min) 88 Left Blood Pressure (mm Hg) 170/86 Blood Pressure Mean (mm Hg) 114 BP type of cuff Automatic BP cuff Respiratory Rate (12-24 breaths/min) 18 O2 Sat % (84-100 %) 96 Oxygen Delivery Method Room Air Severity scale (0 -10) 7 Pain Scale Level 0-10 Score Sepsis Result Low Risk for Sepsis Document 03/19/20 21:18 JG (Rec: 03/19/20 21:19 JG [id number]) Vitals/Sepsis Vitals for Shift Protocol Yes Pulse Rate (60-90 beats/min) 89 Left Blood Pressure (mm Hg) 132/88 Blood Pressure Mean (mm Hg) 102 Respiratory Rate (12-24 breaths/min) 18 O2 Sat % (84-100 %) 96 Oxygen Delivery Method Room Air Severity scale (0 -10) 0 Pain Scale Level 0-10 Score Sepsis Result 2- High Risk for Sepsis WBC - Last Result 12.1 K/mm3 (4.5-11.0) H Educate Patient on VTE Risk Start: 03/19/20 18:54 Freq: ONCE Status: Active Protocol: Document 03/19/20 18:54 SR (Rec: 03/20/20 03:51 SR [id number]) IV & Arterial Line Assessment Start: 03/19/20 19:53 Freq: Q12H Status: Active Protocol: Document 03/19/20 21:55 SR (Rec: 03/20/20 03:51 SR [id number]) IV/Invasive Line Assessment Left Forearm Placement Status Assessment Type Peripheral IV Date of Insertion 03/19/20 Date IV catheter to be changed 03/23/20 Gauge (gauge) 20 Observation Asymptomatic,Intact Line Care Saline Flush IV catheter insertion - peripheral Start: 03/19/20 17:45 Freq: ONCE Status: Active Protocol: Document 03/19/20 17:45 AM (Rec: 03/19/20 17:46 AM [id number]) Inpatient Safety Screen Start: 03/19/20 19:53 Freq: ONCE Status: Complete Protocol: PNEUMOFLU Document 03/19/20 21:55 SR (Rec: 03/20/20 03:51 SR [id number]) Inpatient Safety Screen General Appearance WNL Alert and oriented x3 (person, place,time),Resp. even & non- labored,Skin warm, dry, color WNL Fall Risk None Fall protocol initiated Yes New Onset of Diabetes?(<3 months) No Any Skin Abnormality Present on No Admission? Skin Risk Assessment Score < or = 18 No Patient Receiving Tube Feeding/ No Parenteral Nutrition? Hx Difficulty Chewing No Have you recently lost weight without No trying? Weight Loss Score: 0 Have you been eating poorly because of a no decreased appetite? MST Score 0 MST Risk Level Not At Risk Is patient on dietary supplement at home No ? Order dietary supplement twice a day? No Skin Risk Assessment Score < or = 12 No Does Patient Have an Ostomy? No New Problems with Mobility: No New Feeding and/or Upper Extremity No Deficits Difficulty with selfcare No Communication Deficits No Impaired Cognition No Do you have trouble swallowing? No IV Line on Admission? yes IV Line Type on Admission Peripheral IV Are you currently considering harming No yourself? Do you have a plan? No A past/current Caregiver caused patient No to be afraid or physically hurt Patient is Responsible For the Care of No Others Any Indication of Abuse or Neglect No Any Assistance Required After Discharge? No Does any of the following apply to the None patient? Pneumovax/Flu Vaccine Screen Age is 65 or greater Yes Hx Chronic Obstructive Pulmonary Disease Yes (COPD) Hx Pneumococcal Vaccination Within the No Last Five Years Does Patient Want to Receive the No Pneumovax Intake and Output Start: 03/19/20 19:53 Freq: QSHIFT Status: Active Protocol: Document 03/19/20 22:00 SR (Rec: 03/20/20 03:53 SR [id number]) Intake and Output Intake, Oral Amount 750 Total, Intake Amount 750 Void Number of Voids 1 Notify Provider Start: 03/19/20 18:52 Freq: PRN Status: Active Protocol: Document 03/19/20 21:50 SR (Rec: 03/20/20 04:06 SR [id number]) Notify Provider and Withhold Anticoag Start: 03/19/20 18:54 Freq: PRN Status: Active Protocol: VTE.INFO Document 03/19/20 18:54 SR (Rec: 03/20/20 03:51 SR [id number]) Nursing Standard Care Start: 03/19/20 18:52 Freq: CONT Status: Active Protocol: NURS.CARE Document 03/19/20 21:50 SR (Rec: 03/20/20 04:06 SR [id number]) Nursing Standard Care Start: 03/19/20 22:04 Freq: CONT Status: Active Protocol: NURS.CARE Document 03/19/20 22:04 SR (Rec: 03/20/20 03:53 SR [id number]) Pain Assessment(Basic) Start: 03/19/20 19:53 Freq: Q12HR Status: Active Protocol: Document 03/19/20 22:00 SR (Rec: 03/20/20 03:53 SR [id number]) Pain Assessment(Basic) Any Pain Now? No Pain Management Reassessment Left Hip Severity scale (0 -10) 0 Scale Used 0-10 Score Pain Management Goal(0-10) 0 Management Techniques Taken to Relieve Distraction,Medication Pain Past Medical History Start: 03/19/20 19:53 Freq: ONCE Status: Complete Protocol: Document 03/19/20 21:55 SR (Rec: 03/20/20 03:51 SR [id number]) Neurologic Medical History Hx Neurological Disorders No Hx Alzheimer's Disease No Hx Cerebral Palsy No Hx Dementia No Hx Head Trauma No Hx Hydrocephalus No Hx Myelomenigocele No Hx Neural Tube Defect No Hx Peripheral Neuropathy No Hx Spina Bifida No Hx Andrés-Sachs Disease No Hx Tourette's Syndrome No Hx Traumatic Brain Injury No ENT Medical History Hx HEENT Problems No Hx Eye Problem No Hx Hearing Problem No Hx Sinus Problem No Hx Amblyopia No Hx Cleft Lip No Hx Ear Infection No Hx Enlarged Adenoids No Hx Epiglottitis No Hx Eye Infection No Hx Eye Prosthesis No Hx Farsighted No Hx Glaucoma No Hx Macular Degeneration No Hx Nearsighted/Myopia No Hx Odynophagia No Hx Retinal Detachment No Hx Strabismus No Hx Tinnitus No Hx Visual Field Defect No Cardiac Medical History Hx Cardiac Disorders Yes Hx Heart Attack/AMI No Hx Aneurysm No Hx Atrial Fibrillation No Hx Cardiac Catheterization No Hx Cardiomyopathy No Hx Congenital Heart Disease No Hx Cor Pulmonale No Hx Coronary Artery Disease No Hx Deep Vein Thrombosis No Hx Echocardiogram No Hx EKG Yes Hx Endocarditis No Hx Heart Murmur No Hx Hypertension Yes Hx Hypotension No Hx Hypercholesterolemia No Hx Hyperlipoproteinemia No Hx Internal Defibrillator No Hx Mitral Valve Prolapse No Hx Pacemaker No Hx Percutaneous Transluminal Coronary No Angioplasty (PTCA) Hx Rheumatic Fever No Hx Supraventricular Tachycardia No Hx Valvular Heart Disease No Hx Valve Replacement No Hx Stress Test No Hx Thrombophlebitis No Hx Varicose Veins No Respiratory Medical History Hx Respiratory Disorders Yes Hx Smoking No Hx Sleep Apnea No: high risk score reinier Hx CPAP use No Hx Asbestosis No Hx Asthma No Hx Bronchitis No Hx COPD Yes Hx Emphysema No Hx Interstitial Lung Disease No Hx Pleurisy No Hx Pneumonia No Hx Respiratory Tract Infection No Hx Respiratory Distress Syndrome No GI Medical History Hx Gastrointestinal Disorders No Hx Lundberg's Esophogus No Hx Celiac Disease No Hx Cirrhosis No Hx Diverticulosis No Hx Esophageal Disorders No Hx Esophageal Varices No Hx Esophagitis No Hx GI Bleed No Hx Hepatitis No Hx Hemorrhoids No Hx Femoral Hernia No Hx Inguinal Hernia No Hx Hiatal Hernia No Hx Intussusception No Hx Irritable Bowel No Hx Obstructive Bowel No Hx Pancreatitis No Hx Rectal Polyps No Hx Ulcer No Genitourinary Medical History Hx Genitourinary Disorders No Hx Cystitis No Hx Dialysis No Hx Epispadias No Hx End Stage Renal Disease No Hx Femoral Hernia No Hx Hypospadia No Hx Inguinal Hernia No Hx Kidney Stones Yes Hx Nephritis No Hx Neurogenic Bladder No Hx Polycystic Kidney Disease No Hx Renal Disease No Hx Renal Failure No Hx Renal Insufficiency No Hx Urinary Tract Infection No Endocrine Medical History Hx Endocrine Disorders No Hx Ashvin's Disease No Hx [place]'s Syndrome No Hx Diabetes No Hx Hormone Disorder No Hx Hyperthyroidism No Hx Hypothyroidism No Hx Liver Disease No Hx Paget's Disease No Hx Parathyroid Disease No Hx Pituitary Disease No Hx Steroid Therapy No Hx Systemic Lupus Erythematosus No Hx Thyroid Disease No Musculoskeletal History Hx Musculoskeletal Disorders No Hx Arthritis No Hx Bursitis No Hx Carpal Tunnel Syndrome No Hx Congenital Hip Dysplasia No Hx Contracture No Hx Degenerative Disk Disease No Hx Fibromyalgia No Hx Foot Drop No Hx Gout No Hx Aptf-Zwlod-Nmuadzf Disease No Hx Marfan's Syndrome No Hx Muscular Dystrophy No Hx Osteoarthritis No Hx Osteomylitis No Hx Poliomyelitis No Hx Postpoliomyelitis Muscular Atrophy No Hx Prosthesis No Hx Rheumatoid Arthritis No Hx Scoliosis No Hx Slipped Femoral Epiphysis No Hx Tendonitis No Hematologic Medical History Hx Blood Disorders No Hx Anemia No Hx Clotting Problems No Hx Hemophilia No Hx Leukemia No Hx Sickle Cell Disease No Hx Thalassemia No Reproductive Medical History Hx Priapism No Hx Scrotal Mass No Hx Penile Discharge No Hx Penile Pruritus No Hx Penile Sores No Psycho/Social Medical History Hx Spiritism/Cultural Beliefs Affecting No Care Hx Psychiatric Problems No Hx Adjustment Disorder No Hx Affective/Mood Disorder No Hx Anorexia Nervosa No Hx Attention Deficit Disorder No Hx Attention Deficit Hyperactivity No Disorder Hx Behavior Problems No Hx Bipolar Disorder No Hx Bulimia Nervosa No Hx Depression No Hx Dissociative Disorder No Hx Eating Disorder No Hx Factitious Disorder No Hx Impulse-Control Disorder No Hx Organic Mental Disorder No Hx Panic Disorder No Hx Paranoid Disorder No Hx Personality Disorder No Hx Phobia No Hx Depression No Hx Psychophysiologic Disorder No Hx Psychosexual Disorder No Hx Schizophrenia No Hx Self-mutilation No Hx Somatoform Disorder No Hx Substance Use Disorder No Surgical History Hx Surgeries No Hx Anesthesia Reactions No Hx Difficult Intubation No Hx Cardiac Surgery No Hx Open Heart Surgery No Hx Arteriovenous Shunt No Hx Vascular Surgery No Hx Embolectomy No Hx Atherectomy No Hx Endocrine Surgery No Hx Pituitary Surgery No Hx Parathyroidectomy No Hx Thyroidectomy No Hx Ear Surgery No Hx Nose Surgery No Hx Oral Surgery No Hx Laryngectomy No Hx Tonsillectomy No Hx Adenoidectomy No Hx Bowel Surgery No Hx Appendectomy No Hx Hernia Repair No Hx Liver Transplant No Hx Kidney (Renal Surgery) No Hx Nephrectomy No Hx Kidney Transplant No Hx Cystectomy No Hx Urinary Diversion No Hx Lithotripsy No Hx Vasectomy No Hx Prostatectomy No: BEP Hx Transurethral Resection No Hx Penile Implant No Hx Lumpectomy No Hx Breast Implant No Hx Gynecologic Surgery No Hx Hysterectomy No Hx Tubal Ligation No Hx Orthopedic Surgery No Hx Joint Replacement No Hx Amputation No Hx Brain Shunt No Hx Chest Surgery No Hx Pneumonectomy No Hx Lobectomy No Hx Tracheostomy No Cancer History Hx Cancer No Hx [place] Cancer No Hx Adrenal Cancer No Hx Pituitary Cancer No Hx Brain Tumor No Hx Gall Bladder Cancer No Hx Bladder Cancer No Hx Bone Cancer No Hx Cervical Cancer No Hx Uterine Cancer No Hx Ovarian Cancer No Hx Penile Cancer No Hx Testicular Cancer No Other Medical History Hx C-DIFF No Hx MRSA No Hx VRE No Hx VRSA No Hx Drug Resistant Organism No Hx Human Immunodeficiency Virus (HIV) No Hx Acquired Immunodeficiency Syndrome ( No AIDS) Hx Cytomegalovirus No Hx ESBL No Hx KPC No Hx PRSP No Hx Exposure to Communicable Disease No Hx Recent Travel No Physical Assessment Start: 03/19/20 19:53 Freq: Q12H Status: Active Protocol: Document 03/19/20 22:45 SR (Rec: 03/20/20 03:58 SR [id number]) Isolation Isolation None COVID-19 Review of Symptoms Is patient already isolated for COVID-19 No ? Respiratory Symptoms No symptoms Other COVID-19 Symptoms No symptoms Neurological Assessment Neurological Assessment WNL Yes Patient Orientation Person,Place,Time Arousable To Name Bilateral Reaction Brisk [place] PERRL Comprehension Ability Understands Concepts Speech Pattern Clear,Appropriate Patient Behavior Appropriate,Cooperative Mood Description Appropriate,Calm HEENT Assessment HEENT Assessment WNL Yes Teeth Condition Missing Teeth Tongue Condition Symmetrical,[place],Moist Mouth Odor Absent Lip Condition Normal Lip Color [place] Lip Moisture Moist Cardiovascular Assessment Cardiovascular Assessment WNL Yes Left Radial Rhythm Regular Strength Normal Method Palpation Heart Sounds S1 & S2 Jugular Vein Distention No Capillary Refill < 3 seconds Chest Pain Complaint No VTE Mechanical Device Mechanical Device for VTE prevention Yes ordered? Mechanical Device Intermittent Pneumatic Compression Stockings Mechanical Device Assessment applied Respiratory Assessment Respiratory Assessment WNL Yes Bilateral Phase Inspiratory & Expiratory Breath Sounds Clear Respiratory Pattern Normal Percussion Sound Resonant Oxygen Delivery Method Room Air Cough Description No Cough Gastrointestinal Assessment Gastrointestinal Assessment WNL Yes Gastrointestinal Symptoms No Symptoms Abdomen Description Soft,Non-Tender,Round Bowel Pattern Normal Flatus Presence Present Date of Last Bowel Movement 03/18/20 Bowel Movement Frequency Every 2-4 Days Genitourinary Assessment Genitourinary Assessment WNL Yes Genitourinary Symptoms No Symptoms Bladder Pattern Normal Voiding Method Urinal Urine Appearance Clear Color Pale Odor None Bladder Distention None Bladder Crede No Male Reproductive Assessment Male Reproductive Symptoms None Musculoskeletal Assessment Musculoskeletal Assessment WNL No R Upper ext. Strength Normal R Lower ext. Strength Normal L lower ext Strength Mild Weakness Tufting Creeler Strength Equal and strong Sensation assessment Intact in all 4 ext Activity Abilities moves in bed w/o assist Geoffrey Skin Assessment Scale Moisture Risk Rarely Moist Sensory Perception Slightly Limited Activity Risk Walks Frequently Mobility Risk Slightly Limited Nutrition Risk Adequate Friction & Shear Risk No Apparent Problem Skin Risk Total Score (points) 20 Integumentary Assessment Integumentary Assessment WNL Yes Integumentary Symptoms No Symptoms Any Skin Problems or Breakdown? No Skin Temperature Warm Skin Moisture Dry Skin Turgor Elastic Skin Texture Smooth Fall Risk Assessment History of Falls Immediate or Within 3 Yes Months Secondary Diagnosis Yes Ambulatory Aid None/BR/Wheelchair/Nurse Intravenous Therapy/IV Access Yes Gait/Transferring Weak Mental Status Oriented to Own Ability Total Score 70 Appropriate Fall Risk High Risk Does Patient Meet Bed Alarm Criteria? Yes Bed Alarm applied? Yes Additional Nursing Comments Additional Comments [id number] Preoperative Checklist Start: 03/19/20 19:53 Freq: Status: Active Protocol: Document 03/20/20 05:41 SR (Rec: 03/20/20 05:42 SR [id number]) Preoperative Checklist Patient Checklist Allergies Verified Bowel Preparation Prior to Surgery No Surgical Hair Removal None Any Objection to Receiving Blood/Blood No Products? Resuscitation status Start: 03/19/20 18:52 Freq: . ORDERED Status: Active Protocol: Document 03/20/20 05:41 SR (Rec: 03/20/20 05:41 SR [id number]) Rounding/Turning Assessment Start: 03/19/20 19:53 Freq: Q2H Status: Active Protocol: Document 03/19/20 21:53 SR (Rec: 03/20/20 03:52 SR [id number]) Rounding Assessment Rounding Checklist Position changed,Offered toileting,Assessed patient pain,Checked IV,Call orosco within reach,Personal items within reach Patient Out of Bed Ad Carlotta (No Turning No Needed) Patient Turned and Repositioned Yes Patient Position Changed to: Back Document 03/19/20 23:00 SR (Rec: 03/20/20 04:07 SR [id number]) Rounding Assessment Rounding Checklist Position changed,Offered toileting,Assessed patient pain,Checked IV,Call orosco within reach,Personal items within reach Patient Out of Bed Ad Carlotta (No Turning No Needed) Patient Turned and Repositioned No: self Patient Position Changed to: Left Side Document 03/20/20 01:00 MW (Rec: 03/20/20 06:35 MW [id number]) Rounding Assessment Rounding Checklist Position changed,Call orosco within reach,Personal items within reach Patient Out of Bed Ad Carlotta (No Turning No Needed) Patient Turned and Repositioned Yes Patient Position Changed to: Back Document 03/20/20 03:00 MW (Rec: 03/20/20 06:35 MW [id number]) Rounding Assessment Rounding Checklist Position changed,Call orosco within reach,Personal items within reach Patient Out of Bed Ad Carlotta (No Turning No Needed) Patient Turned and Repositioned Yes Patient Position Changed to: Right side Document 03/20/20 05:00 MW (Rec: 03/20/20 06:35 MW [id number]) Rounding Assessment Rounding Checklist Position changed,Call orosco within reach,Personal items within reach Patient Out of Bed Ad Carlotta (No Turning No Needed) Patient Turned and Repositioned Yes Patient Position Changed to: Back Document 03/20/20 07:00 SR (Rec: 03/20/20 07:24 SR [id number]) Rounding Assessment Rounding Checklist Position changed,Offered toileting,Assessed patient pain,Checked IV,Call orosco within reach,Personal items within reach Patient Out of Bed Ad Carlotta (No Turning No Needed) Patient Turned and Repositioned Yes Patient Position Changed to: Right side Saline lock Start: 03/19/20 17:14 Freq: STAT Status: Active Protocol: Document 03/19/20 17:41 AM (Rec: 03/19/20 17:41 AM [id number]) Sepsis Screening Tool Start: 03/19/20 19:53 Freq: PRN Status: Active Protocol: SST.SEPSIS Document 03/19/20 22:45 SR (Rec: 03/20/20 03:58 SR [id number]) Sepsis Screening Tool Does patient have suspected or confirmed No infection OR compromised immune system? Select One or More of the Following Antibiotic Therapy Two (2) or more New signs of SIRS ( No Systemic Immune Response Syndrome)? Does patient have 1 or more NEW or ACUTE No ONSET signs of organ system dysfunction or organ failure? Severe Sepsis/Septic Shock Screen Negative Screen for Severe Sepsis or Septic Shock Sequential Compression Device Start: 03/19/20 18:54 Freq: CONT Status: Active Protocol: Document 03/19/20 18:54 SR (Rec: 03/20/20 03:51 SR [id number]) Tech Rounding/Turning Assessment Start: 03/19/20 19:53 Freq: Q2H Status: Active Protocol: Document 03/19/20 21:53 MW (Rec: 03/19/20 22:17 MW [id number]) Rounding Assessment Rounding Checklist Position changed,Call orosco within reach,Personal items within reach Patient Out of Bed Ad Carlotta (No Turning No Needed) Patient Turned and Repositioned Yes: Total Patient Position Changed to: Back Document 03/19/20 23:00 MW (Rec: 03/20/20 00:26 MW [id number]) Rounding Assessment Rounding Checklist Position changed,Call orosco within reach,Personal items within reach Patient Out of Bed Ad Carlotta (No Turning No Needed) Patient Turned and Repositioned Yes Patient Position Changed to: Back Document 03/20/20 01:00 MW (Rec: 03/20/20 03:27 MW [id number]) Rounding Assessment Rounding Checklist Position changed,Call orosco within reach,Personal items within reach Patient Out of Bed Ad Carlotta (No Turning No Needed) Patient Turned and Repositioned Yes Document 03/20/20 03:00 MW (Rec: 03/20/20 03:27 MW [id number]) Rounding Assessment Rounding Checklist Position changed,Call orosco within reach,Personal items within reach Patient Out of Bed Ad Carlotta (No Turning No Needed) Patient Turned and Repositioned Yes Document 03/20/20 05:00 MW (Rec: 03/20/20 06:30 MW [id number]) Rounding Assessment Rounding Checklist Position changed,Call orosco within reach,Personal items within reach Patient Out of Bed Ad Carlotta (No Turning No Needed) Patient Turned and Repositioned Yes Patient Position Changed to: Back Vital Sign-(Monitor) Start: 03/19/20 19:53 Freq: .Per Protocol Status: Active Protocol: Document 03/19/20 17:11 SR (Rec: 03/19/20 22:12 SR [id number]) Critical Care Vital Signs (Monitor Interface) O2 Sat by Pulse Oximetry (84-100 %) 100 Document 03/19/20 17:21 SR (Rec: 03/19/20 22:12 SR [id number]) Critical Care Vital Signs (Monitor Interface) Pulse Rate (60-90 beats/min) 72 Respiratory Rate (12-24 breaths/min) 9 O2 Sat by Pulse Oximetry (84-100 %) 97 Blood Pressure (mm Hg) 170/74 Blood Pressure Mean (mm Hg) 106 Document 03/19/20 17:31 SR (Rec: 03/19/20 22:12 SR [id number]) Critical Care Vital Signs (Monitor Interface) Pulse Rate (60-90 beats/min) 79 Respiratory Rate (12-24 breaths/min) 13 O2 Sat by Pulse Oximetry (84-100 %) 96 Blood Pressure (mm Hg) 170/74 Blood Pressure Mean (mm Hg) 106 Document 03/19/20 17:41 SR (Rec: 03/19/20 22:12 SR [id number]) Critical Care Vital Signs (Monitor Interface) Pulse Rate (60-90 beats/min) 76 Respiratory Rate (12-24 breaths/min) 18 O2 Sat by Pulse Oximetry (84-100 %) 96 Blood Pressure (mm Hg) 170/74 Blood Pressure Mean (mm Hg) 106 Document 03/19/20 17:51 SR (Rec: 03/19/20 22:12 SR [id number]) Critical Care Vital Signs (Monitor Interface) Pulse Rate (60-90 beats/min) 83 Respiratory Rate (12-24 breaths/min) 19 O2 Sat by Pulse Oximetry (84-100 %) 96 Blood Pressure (mm Hg) 170/74 Blood Pressure Mean (mm Hg) 106 Document 03/19/20 18:00 SR (Rec: 03/19/20 22:12 SR [id number]) Critical Care Vital Signs (Monitor Interface) Pulse Rate (60-90 beats/min) 76 Respiratory Rate (12-24 breaths/min) 13 O2 Sat by Pulse Oximetry (84-100 %) 98 Blood Pressure (mm Hg) 158/70 Blood Pressure Mean (mm Hg) 99 Document 03/19/20 18:11 SR (Rec: 03/19/20 22:12 SR [id number]) Critical Care Vital Signs (Monitor Interface) Pulse Rate (60-90 beats/min) 74 Respiratory Rate (12-24 breaths/min) 12 O2 Sat by Pulse Oximetry (84-100 %) 96 Blood Pressure (mm Hg) 158/70 Blood Pressure Mean (mm Hg) 99 Document 03/19/20 18:21 SR (Rec: 03/19/20 22:12 SR [id number]) Critical Care Vital Signs (Monitor Interface) Pulse Rate (60-90 beats/min) 71 Respiratory Rate (12-24 breaths/min) 35 O2 Sat by Pulse Oximetry (84-100 %) 95 Blood Pressure (mm Hg) 158/70 Blood Pressure Mean (mm Hg) 99 Document 03/19/20 18:31 SR (Rec: 03/19/20 22:12 SR [id number]) Critical Care Vital Signs (Monitor Interface) Pulse Rate (60-90 beats/min) 74 Respiratory Rate (12-24 breaths/min) 12 O2 Sat by Pulse Oximetry (84-100 %) 97 Blood Pressure (mm Hg) 158/70 Blood Pressure Mean (mm Hg) 99 Document 03/19/20 18:41 SR (Rec: 03/19/20 22:12 SR [id number]) Critical Care Vital Signs (Monitor Interface) Pulse Rate (60-90 beats/min) 71 Respiratory Rate (12-24 breaths/min) 16 O2 Sat by Pulse Oximetry (84-100 %) 94 Blood Pressure (mm Hg) 158/70 Blood Pressure Mean (mm Hg) 99 Document 03/19/20 18:51 SR (Rec: 03/19/20 22:12 SR [id number]) Critical Care Vital Signs (Monitor Interface) Pulse Rate (60-90 beats/min) 72 Respiratory Rate (12-24 breaths/min) 17 O2 Sat by Pulse Oximetry (84-100 %) 95 Blood Pressure (mm Hg) 158/70 Blood Pressure Mean (mm Hg) 99 Document 03/19/20 19:00 SR (Rec: 03/19/20 22:12 SR [id number]) Critical Care Vital Signs (Monitor Interface) Respiratory Rate (12-24 breaths/min) 13 O2 Sat by Pulse Oximetry (84-100 %) 94 Blood Pressure (mm Hg) 149/63 Blood Pressure Mean (mm Hg) 91 Document 03/19/20 19:11 SR (Rec: 03/19/20 22:12 SR [id number]) Critical Care Vital Signs (Monitor Interface) Pulse Rate (60-90 beats/min) 74 Respiratory Rate (12-24 breaths/min) 16 O2 Sat by Pulse Oximetry (84-100 %) 96 Blood Pressure (mm Hg) 149/63 Blood Pressure Mean (mm Hg) 91 Document 03/19/20 19:21 SR (Rec: 03/19/20 22:12 SR [id number]) Critical Care Vital Signs (Monitor Interface) Pulse Rate (60-90 beats/min) 74 Respiratory Rate (12-24 breaths/min) 18 O2 Sat by Pulse Oximetry (84-100 %) 94 Blood Pressure (mm Hg) 149/63 Blood Pressure Mean (mm Hg) 91 Document 03/19/20 19:31 SR (Rec: 03/19/20 22:12 SR [id number]) Critical Care Vital Signs (Monitor Interface) Pulse Rate (60-90 beats/min) 72 Respiratory Rate (12-24 breaths/min) 35 O2 Sat by Pulse Oximetry (84-100 %) 95 Blood Pressure (mm Hg) 149/63 Blood Pressure Mean (mm Hg) 91 Document 03/19/20 19:41 SR (Rec: 03/19/20 22:12 SR [id number]) Critical Care Vital Signs (Monitor Interface) Pulse Rate (60-90 beats/min) 72 Respiratory Rate (12-24 breaths/min) 13 O2 Sat by Pulse Oximetry (84-100 %) 94 Blood Pressure (mm Hg) 149/63 Blood Pressure Mean (mm Hg) 91 Document 03/19/20 19:51 SR (Rec: 03/19/20 22:12 SR [id number]) Critical Care Vital Signs (Monitor Interface) Respiratory Rate (12-24 breaths/min) 16 O2 Sat by Pulse Oximetry (84-100 %) 94 Blood Pressure (mm Hg) 149/63 Blood Pressure Mean (mm Hg) 91 Document 03/19/20 20:00 SR (Rec: 03/19/20 22:12 SR [id number]) Critical Care Vital Signs (Monitor Interface) Respiratory Rate (12-24 breaths/min) 16 O2 Sat by Pulse Oximetry (84-100 %) 94 Blood Pressure (mm Hg) 140/65 Blood Pressure Mean (mm Hg) 90 Document 03/19/20 20:11 SR (Rec: 03/19/20 22:12 SR [id number]) Critical Care Vital Signs (Monitor Interface) Respiratory Rate (12-24 breaths/min) 19 O2 Sat by Pulse Oximetry (84-100 %) 94 Blood Pressure (mm Hg) 140/65 Blood Pressure Mean (mm Hg) 90 Document 03/19/20 20:21 SR (Rec: 03/19/20 22:12 SR [id number]) Critical Care Vital Signs (Monitor Interface) Pulse Rate (60-90 beats/min) 73 Respiratory Rate (12-24 breaths/min) 14 O2 Sat by Pulse Oximetry (84-100 %) 95 Blood Pressure (mm Hg) 149/63 Blood Pressure Mean (mm Hg) 91 Document 03/19/20 20:31 SR (Rec: 03/19/20 22:12 SR [id number]) Critical Care Vital Signs (Monitor Interface) Pulse Rate (60-90 beats/min) 71 Respiratory Rate (12-24 breaths/min) 16 O2 Sat by Pulse Oximetry (84-100 %) 94 Blood Pressure (mm Hg) 149/63 Blood Pressure Mean (mm Hg) 91 Document 03/19/20 20:41 SR (Rec: 03/19/20 22:12 SR [id number]) Critical Care Vital Signs (Monitor Interface) Pulse Rate (60-90 beats/min) 68 Respiratory Rate (12-24 breaths/min) 13 O2 Sat by Pulse Oximetry (84-100 %) 95 Blood Pressure (mm Hg) 149/63 Blood Pressure Mean (mm Hg) 91 Document 03/19/20 20:51 SR (Rec: 03/19/20 22:12 SR [id number]) Critical Care Vital Signs (Monitor Interface) Pulse Rate (60-90 beats/min) 71 Respiratory Rate (12-24 breaths/min) 15 O2 Sat by Pulse Oximetry (84-100 %) 95 Blood Pressure (mm Hg) 149/63 Blood Pressure Mean (mm Hg) 91 Document 03/19/20 21:00 SR (Rec: 03/19/20 22:12 SR [id number]) Critical Care Vital Signs (Monitor Interface) Pulse Rate (60-90 beats/min) 72 Respiratory Rate (12-24 breaths/min) 13 O2 Sat by Pulse Oximetry (84-100 %) 95 Blood Pressure (mm Hg) 140/67 Blood Pressure Mean (mm Hg) 91 Document 03/19/20 21:11 SR (Rec: 03/19/20 22:12 SR [id number]) Critical Care Vital Signs (Monitor Interface) Pulse Rate (60-90 beats/min) 78 Respiratory Rate (12-24 breaths/min) 12 O2 Sat by Pulse Oximetry (84-100 %) 97 Blood Pressure (mm Hg) 140/67 Blood Pressure Mean (mm Hg) 91 Document 03/19/20 21:21 SR (Rec: 03/19/20 22:12 SR [id number]) Critical Care Vital Signs (Monitor Interface) Pulse Rate (60-90 beats/min) 69 Respiratory Rate (12-24 breaths/min) 12 O2 Sat by Pulse Oximetry (84-100 %) 96 Blood Pressure (mm Hg) 140/67 Blood Pressure Mean (mm Hg) 91 Document 03/19/20 21:31 SR (Rec: 03/19/20 22:12 SR [id number]) Critical Care Vital Signs (Monitor Interface) Pulse Rate (60-90 beats/min) 70 Respiratory Rate (12-24 breaths/min) 15 O2 Sat by Pulse Oximetry (84-100 %) 95 Blood Pressure (mm Hg) 140/67 Blood Pressure Mean (mm Hg) 91 Document 03/19/20 21:41 SR (Rec: 03/19/20 22:12 SR [id number]) Critical Care Vital Signs (Monitor Interface) Pulse Rate (60-90 beats/min) 68 Respiratory Rate (12-24 breaths/min) 11 O2 Sat by Pulse Oximetry (84-100 %) 97 Blood Pressure (mm Hg) 140/67 Blood Pressure Mean (mm Hg) 91 Document 03/19/20 22:04 SR (Rec: 03/19/20 22:12 SR [id number]) Critical Care Vital Signs (Monitor Interface) Temperature (97.6 F-99.6 F) 98.5 F Pulse Rate (60-90 beats/min) 77 Respiratory Rate (12-24 breaths/min) 18 O2 Sat by Pulse Oximetry (84-100 %) 95 Blood Pressure (mm Hg) 182/79 Blood Pressure Mean (mm Hg) 113 Document 03/19/20 22:24 SR (Rec: 03/19/20 22:33 SR [id number]) Critical Care Vital Signs (Monitor Interface) O2 Sat by Pulse Oximetry (84-100 %) 100 Blood Pressure (mm Hg) 140/67 Blood Pressure Mean (mm Hg) 91 Document 03/19/20 23:53 MW (Rec: 03/20/20 00:25 MW [id number]) Critical Care Vital Signs (Monitor Interface) Temperature (97.6 F-99.6 F) 98.4 F Pulse Rate (60-90 beats/min) 69 Respiratory Rate (12-24 breaths/min) 17 O2 Sat by Pulse Oximetry (84-100 %) 95 Blood Pressure (mm Hg) 173/78 Blood Pressure Mean (mm Hg) 109 Document 03/20/20 04:09 MW (Rec: 03/20/20 04:33 MW [id number]) Critical Care Vital Signs (Monitor Interface) Temperature (97.6 F-99.6 F) 98.9 F Pulse Rate (60-90 beats/min) 65 Respiratory Rate (12-24 breaths/min) 18 O2 Sat by Pulse Oximetry (84-100 %) 94 Blood Pressure (mm Hg) 162/82 Blood Pressure Mean (mm Hg) 108 Document 03/20/20 07:20 BRJ (Rec: 03/20/20 07:28 BRJ [id number]) Critical Care Vital Signs (Monitor Interface) Temperature (97.6 F-99.6 F) 98.8 F Pulse Rate (60-90 beats/min) 73 Respiratory Rate (12-24 breaths/min) 20 O2 Sat by Pulse Oximetry (84-100 %) 94 Blood Pressure (mm Hg) 167/81 Blood Pressure Mean (mm Hg) 109 Weight assessment Start: 03/19/20 19:53 Freq: QDAY@06 Status: Active Protocol: Document 03/20/20 05:42 SR (Rec: 03/20/20 05:42 SR [id number]) Weight Assessment Weight 71.668 kg Weight Measurement Method Built in [facility]scale Document 03/20/20 06:29 MW (Rec: 03/20/20 06:29 MW [id number]) Weight Assessment Weight 65.1 kg Weight Measurement Method Built in [facility] Discharge Information ED Provider: PEEWEE SMITH Status: Left Department Time Seen by Provider: 03/19/20 17:05 Condition: Stable Triaged At: 03/19/20 17:17 Other ED Providers: RAMAN PIRES Emergency Discharge Date/Time: 03/19/20 21:18 Emergency Discharge Disposition: DC-09 OP ADMIT IP TO THIS HOSP Clinical Impression Fracture of femoral neck, left Emergency Discharge Comment: Admit Intervention Last Done ED Vital Signs 03/19/20 21:18 Query Result Vitals for Shift Protocol Yes Pulse Rate 89 Left -Blood Pressure 132/88 -Blood Pressure Mean 102 Respiratory Rate 18 O2 Sat by Pulse Oximetry 96 Oxygen Delivery Method Room Air Severity scale (0 -10) 0 Pain Scale Used 0-10 Score Sepsis Result 2- High Risk for Sepsis WBC - Last Result 12.1 K/mm3 (4.5-11.0) H ED Discharge Assessment 03/19/20 21:19 Query Result Did this pt recieve Moderate Sedation No Was recieving unit notified of pt Yes readiness to transport? Name of person notified: Charge Nurse Pt transported to unit by: Wheelchair Pt transported by: molding machine setter Name of person responsible for transport Carlos to floor Does the pt Need Aspirin No Inpatient Discharge Date/Time: Inpatient Discharge Disposition: Inpatient Discharge Comment: Instructions: Stand-Alone Forms: Prescriptions: Visit Report - Forms: - Referrals: DMITRIY SHORT III, CAN INTAKE WORKER- (Primary Care Provider) - 7 Days ED Audit Last Name: WON Status: Left Department First Name: DIMITRI Priority: 3 - Urgent Middle: DAHIANA Condition: Stable Birthdate: 1945 Arrival Date/Time: 03/19/20 16:45 Age: 74 Arrival Mode: CAR/PERSONAL TRANSPORT Sex: M Triaged At: 03/19/20 17:17 Language: Time Seen by Provider: 03/19/20 17:05 Stated Complaint: FALL Chief Complaint: Extremity Injury, Lower ED Location: Main ED Area: Station: Group: ED Provider: PEEWEE SMITH ED Midlevel Provider: ED Nurse: Primary Care Provider: DMITRIY SHORT III Other Provider: RAMAN PIRES Status/Phase DtTm/Value User/Action Left Department 03/19/20 21:20:29 ANGELITA SUN Referrals (Provider) DMITRIY SHORT III, APRN Added Admitted Patient 03/19/20 19:51:02 [place] Attending Provider MIGUEL MANZO MD New Admitting Provider MIGUEL MANZO MD New With Doctor 03/19/20 18:48:29 RENATO DIAZ Primary Care Provider DMITRIY SHORT III, APRN New 03/19/20 17:35 ALEXANDRA HOLT Chief Complaint Extremity Injury, Lower New 03/19/20 17:05:10 PEEWEE SMITH Ed Provider PEEWEE SMITH MD Edit Received 03/19/20 16:45:08 LUANN MOORE Ed Provider KI OCASIO MD New Stated Complaint FALL New Assessment and Plan Advance Directives: Yes (Full code) VTE prophylaxis?: Chemical Plan of care discussed with patient/family: Yes - Patient Problems (1) Fracture of femoral neck, left Current Visit: Yes Status: Acute Qualifiers: Encounter type: initial encounter Fracture type: closed Qualified Code(s): S72.002A - Fracture of unspecified part of neck of left femur, initial encounter for closed fracture Plan to address problem: Orthophoric consult requested For ORIF possibly tomorrow Pain control (2) BPH (benign prostatic hyperplasia) Current Visit: Yes Status: Chronic Qualifiers: Lower urinary tract symptom presence: symptoms present Plan to address problem: Continue Flomax (3) History of prostate cancer Current Visit: Yes Status: Chronic Plan to address problem: Continue prostate cancer medicines (4) COPD (chronic obstructive pulmonary disease) Current Visit: Yes Status: Chronic Qualifiers: Chronic bronchitis type: unspecified Plan to address problem: Continue bronchodilators (5) DVT prophylaxis Current Visit: Yes Status: Acute Plan to address problem: On SCDs and GI prophylaxis
[2020-03-19] MEDS ORDERED: [UNRECOGNIZED DRUG - OTHER] IH SCH (22:00)
[2020-03-19] MEDS ORDERED: FORMOTEROL FUMARATE IH SCH (22:00)
[2020-03-19] MEDS ORDERED: BUDESONIDE IH SCH (22:00)
[2020-03-19] MEDS ORDERED: ONDANSETRON 4 MG/2 ML INJ IV PRN (22:04)
[2020-03-19] MEDS ORDERED: HYDROmorphone 1 MG/1 ML INJ IV PRN (22:04)
[2020-03-19] MEDS ORDERED: ACETAMINOPHEN 325 MG TAB PO PRN (22:04)
[2020-03-19] MEDS ORDERED: ALBUTEROL 2.5 MG/3 ML NEBU IH PRN (22:20)
[2020-03-19] MEDS: oxyCODONE /ACETAMINOPHEN 5-325MG TAB PO PRN (23:21)
[2020-03-19] MEDS: FAMOTIDINE 20 MG/2 ML INJ IV SCH (23:21)
[2020-03-19] MEDS: TAMSULOSIN 0.4 MG CAP PO SCH (23:21)
[2020-03-19] MEDS: SODIUM CHLORIDE 0.9% 1000 ML 1,000 ML IV SCH (23:22)
[2020-03-20 05:45] LABS: Basophils % (Auto) 0.4 % (0.0-1.8); Eosinophils # (Auto) 0.1 K/mm3 (0.0-0.4); Eosinophils % (Auto) 1.2 % (0.0-4.3); Hematocrit 33.1 % (35.5-45.6); Hemoglobin 11.4 gm/dl (11.8-15.2); Lymphocytes # (Auto) 1.4 K/mm3 (1.2-5.4); Lymphocytes % (Auto) 15.6 % (13.4-35.0); Mean Corpuscular HGB Conc 35 % (32-34); Mean Corpuscular Volume 88 fl (84-94); Monocytes # (Auto) 0.6 K/mm3 (0.0-0.8); Monocytes % (Auto) 6.9 % (0.0-7.3); Platelet Count 188 K/mm3 (140-440); Red Blood Count 3.75 M/mm3 (3.65-5.03); Red Cell Distribution Width 13.9 % (13.2-15.2)
[2020-03-20 05:51] LABS: Alanine Aminotransferase 7 units/L (7-56); Albumin 3.6 g/dL (3.9-5); BUN/Creatinine Ratio 17; Blood Urea Nitrogen 17 mg/dL (9-20); Hemolysis Index 0
[2020-03-20] MEDS: BUDESONIDE 0.5 MG/2 ML NEBU IH SCH ×2 (09:21→22:00)
[2020-03-20] MEDS: ARFORMOTEROL 15 MCG/2 ML NEBU IH SCH ×2 (09:22→22:00)
[2020-03-20] MEDS ORDERED: MAGNESIUM 500 MG PO SCH (10:00)
[2020-03-20] MEDS: HEPARIN 5,000 UNIT/1 ML VIAL SUB-Q SCH ×2 (10:18→21:33)
[2020-03-20] MEDS: FAMOTIDINE 20 MG/2 ML INJ IV SCH ×2 (11:20→21:33)
[2020-03-20] MEDS ORDERED: LIDOCAINE MPF (2%) 20 MG/1 ML VIAL 5 ML ONE (12:29)
[2020-03-20] MEDS ORDERED: ROCURONIUM 50 MG/5 ML INJ IV ONE (12:29)
[2020-03-20] MEDS ORDERED: ONDANSETRON 4 MG/2 ML INJ ONE (12:29)
[2020-03-20] MEDS ORDERED: propofoL 200 MG/20 ML VIAL IV ONE (12:30)
[2020-03-20] MEDS ORDERED: fentaNYL 100 MCG/2 ML INJ ONE (12:30)
--- NOTE | 2020-03-20 13:04 | Anesthesia Day of Surgery ---
Anesthesia Day of Surgery - Day of Surgery Patient Examined: Yes Patient H&P Reviewed: Yes Patient is NPO: Yes Beta Blockers: No Cardiac Clearance: No Pulmonary Clearance: No
--- NOTE | 2020-03-20 13:04 | Anesthesia Consultation ---
Anesthesia Consult and Med Hx Date of service: 03/20/20 - Airway Anesthetic Teeth Evaluation: Poor ROM Head & Neck: Adequate Mental/Hyoid Distance: Adequate Mallampati Class: Class II Intubation Access Assessment: Probably Good - Pulmonary Exam CTA: Yes - Pre-Operative Health Status ASA Pre-Surgery Classification: ASA3, Emergency Proposed Anesthetic Plan: General - Pulmonary Hx Smoking: No (Quit 30 years ago) Hx Asthma: No COPD: Yes Hx Pneumonia: No Hx Sleep Apnea: No (high risk score earnestine) - Cardiovascular System Hx Hypertension: Yes Hx Coronary Artery Disease: No Hx Heart Attack/AMI: No Hx Percutaneous Transluminal Coronary Angioplasty (PTCA): No Hx Pacemaker: No Hx Internal Defibrillator: No Hx Valvular Heart Disease: No Hx Heart Murmur: No - Central Nervous System Hx Back Pain: Yes Hx Psychiatric Problems: No - Gastrointestinal Hx Ulcer: No - Endocrine Hx Renal Disease: No Hx End Stage Renal Disease: No Hx Cirrhosis: No Hx Liver Disease: No Hx Hypothyroidism: No Hx Hyperthyroidism: No - Hematic Hx Anemia: No Hx Sickle Cell Disease: No - Other Systems Hx Alcohol Use: No Hx Cancer: No - Additional Comments Anesthesia Medical History Comments: Patient denied previous anesthesia complications
[2020-03-20] MEDS ORDERED: KETOROLAC 30 MG/1 ML INJ ONE (13:14)
[2020-03-20] MEDS ORDERED: TRANEXAMIC ACID 1,000 MG/10 ML ONE (13:14)
[2020-03-20] MEDS ORDERED: BUPIVACAINE/PF (0.5%) 5 MG/1 ML 30 ML VIAL INFILTRATI ONE ×2 (13:14→14:26)
[2020-03-20] MEDS ORDERED: MORPHINE 10 MG/1 ML INJ ONE (13:15)
[2020-03-20] MEDS ORDERED: SODIUM CHLORIDE 0.9% 250ML 250 ML ONE (13:16)
[2020-03-20] MEDS ORDERED: ceFAZolin 1 GM VIAL ONE ×2 (13:55)
[2020-03-20] MEDS ORDERED: HYDROmorphone 1 MG/1 ML INJ ONE (14:00)
[2020-03-20] MEDS ORDERED: dexAMETHasone 20 MG/5 ML VIAL ONE (14:00)
[2020-03-20] MEDS ORDERED: SODIUM CHLORIDE 0.9% IRRIG SOLN 2000 ML IR ONE (14:06)
[2020-03-20] MEDS ORDERED: SODIUM CHLORIDE 0.9% IRR 1,000 ML BOTTLE IR ONE (14:06)
[2020-03-20] MEDS ORDERED: WATER FOR IRRIG STERILE 1,500 ML BOTTLE IR ONE (14:07)
--- NOTE | 2020-03-20 14:19 | Progress Note ---
Assessment and Plan Assessment and plan: Advance Directives: Yes (Full code) VTE prophylaxis?: Chemical Plan of care discussed with patient/family: Yes -- Fracture of femoral neck, left Current Visit: Yes Status: Acute Plan to address problem: Orthophoric evaluated Status post left hip bipolar hemiarthroplasty Postop care per Ortho Pain medications, IV fluids, PT OT Rehabilitation -- BPH (benign prostatic hyperplasia) Current Visit: Yes Status: Chronic Plan to address problem: Continue Flomax -- History of prostate cancer Current Visit: Yes Status: Chronic Plan to address problem: Continue prostate cancer medicines -- COPD (chronic obstructive pulmonary disease) Current Visit: Yes Status: Chronic Plan to address problem: Continue bronchodilators -- DVT prophylaxis Current Visit: Yes Status: Acute Plan to address problem: On SCDs and GI prophylaxis Monitor the patient and adjust management as needed History Interval history: Patient is admitted with displaced left femoral neck fracture Evaluated by orthopedics, scheduled for surgery Patient vital signs reviewed Hospitalist Physical - Constitutional Vitals: Temp Pulse Resp BP Pulse Ox 98.3 F 78 20 176/90 94 03/20/20 11:17 03/20/20 11:17 03/20/20 11:17 03/20/20 11:17 03/20/20 11:17 General appearance: Present: mild distress, cachectic, other (Low BMI) - EENT Eyes: Present: PERRL, EOM intact - Neck Neck: Present: supple, normal ROM - Respiratory Respiratory effort: normal Respiratory: bilateral: diminished, negative: rales, rhonchi, wheezing - Cardiovascular Rhythm: regular Heart Sounds: Present: S1 & S2 - Extremities Extremities: no ischemia, No edema - Abdominal General gastrointestinal: soft, non-tender, non-distended, normal bowel sounds - Integumentary Integumentary: Present: clear, warm - Psychiatric Psychiatric: appropriate mood/affect, cooperative - Neurologic Neurologic: moves all extremities Results - Labs CBC & Chem 7: 03/20/20 04:24 03/20/20 04:24 Labs: Laboratory Last Values WBC 9.1 K/mm3 (4.5-11.0) 03/20/20 04:24 RBC 3.75 M/mm3 (3.65-5.03) 03/20/20 04:24 Hgb 11.4 gm/dl (11.8-15.2) L 03/20/20 04:24 Hct 33.1 % (35.5-45.6) L 03/20/20 04:24 MCV 88 fl (84-94) 03/20/20 04:24 MCH 30 pg (28-32) 03/20/20 04:24 MCHC 35 % (32-34) H 03/20/20 04:24 RDW 13.9 % (13.2-15.2) 03/20/20 04:24 Plt Count 188 K/mm3 (140-440) 03/20/20 04:24 Lymph % (Auto) 15.6 % (13.4-35.0) 03/20/20 04:24 Sevier % (Auto) 6.9 % (0.0-7.3) 03/20/20 04:24 Eos % (Auto) 1.2 % (0.0-4.3) 03/20/20 04:24 Baso % (Auto) 0.4 % (0.0-1.8) 03/20/20 04:24 Lymph # (Auto) 1.4 K/mm3 (1.2-5.4) 03/20/20 04:24 Sevier # (Auto) 0.6 K/mm3 (0.0-0.8) 03/20/20 04:24 Eos # (Auto) 0.1 K/mm3 (0.0-0.4) 03/20/20 04:24 Baso # (Auto) 0.0 K/mm3 (0.0-0.1) 03/20/20 04:24 Add Manual Diff Complete 03/19/20 17:27 Total Counted 100 03/19/20 17:27 Seg Neutrophils % 75.9 % (40.0-70.0) H 03/20/20 04:24 Seg Neuts % (Manual) 90.0 % (40.0-70.0) H 03/19/20 17:27 Band Neutrophils % 0 % 03/19/20 17:27 Lymphocytes % (Manual) 4.0 % (13.4-35.0) L 03/19/20 17:27 Reactive Lymphs % (Man) 0 % 03/19/20 17:27 Monocytes % (Manual) 6.0 % (0.0-7.3) 03/19/20 17:27 Eosinophils % (Manual) 0 % (0.0-4.3) 03/19/20 17:27 Basophils % (Manual) 0 % (0.0-1.8) 03/19/20 17:27 Metamyelocytes % 0 % 03/19/20 17:27 Myelocytes % 0 % 03/19/20 17:27 Promyelocytes % 0 % 03/19/20 17:27 Blast Cells % 0 % 03/19/20 17:27 Nucleated RBC % Not Reportable 03/19/20 17:27 Seg Neutrophils # 6.9 K/mm3 (1.8-7.7) 03/20/20 04:24 Seg Neutrophils # Man 10.9 K/mm3 (1.8-7.7) H 03/19/20 17: Band Neutrophils # 0.0 K/mm3 03/19/20 17: Lymphocytes # (Manual) 0.5 K/mm3 (1.2-5.4) L 03/19/20 17: Abs React Lymphs (Man) 0.0 K/mm3 03/19/20 17: Monocytes # (Manual) 0.7 K/mm3 (0.0-0.8) 03/19/20 17: Eosinophils # (Manual) 0.0 K/mm3 (0.0-0.4) 03/19/20 17: Basophils # (Manual) 0.0 K/mm3 (0.0-0.1) 03/19/20 17:27 Metamyelocytes # 0.0 K/mm3 03/19/20 17: Myelocytes # 0.0 K/mm3 03/19/20 17: Promyelocytes # 0.0 K/mm3 03/19/20 17:27 Blast Cells # 0.0 K/mm3 03/19/20 17:27 WBC Morphology Not Reportable 03/19/20 17:27 Hypersegmented Neuts Not Reportable 03/19/20 17:27 Hyposegmented Neuts Not Reportable 03/19/20 17: Hypogranular Neuts Not Reportable 03/19/20 17:27 Smudge Cells Not Reportable 03/19/20 17:27 Toxic Granulation Not Reportable 03/19/20 17:27 Toxic Vacuolation Not Reportable 03/19/20 17:27 Dohle Bodies Not Reportable 03/19/20 17:27 Pelger-Huet Anomaly Not Reportable 03/19/20 17:27 Frank Rods Not Reportable 03/19/20 17:27 Platelet Estimate Not Reportable 03/19/20 17:27 Clumped Platelets Not Reportable 03/19/20 17:27 Plt Clumps, EDTA Not Reportable 03/19/20 17:27 Large Platelets Not Reportable 03/19/20 17:27 Giant Platelets Not Reportable 03/19/20 17:27 Platelet Satelliting Not Reportable 03/19/20 17:27 Plt Morphology Comment Not Reportable 03/19/20 17:27 RBC Morphology Normal 03/19/20 17:27 Dimorphic RBCs Not Reportable 03/19/20 17:27 Polychromasia Not Reportable 03/19/20 17:27 Hypochromasia Not Reportable 03/19/20 17:27 Poikilocytosis Not Reportable 03/19/20 17:27 Anisocytosis Not Reportable 03/19/20 17:27 Microcytosis Not Reportable 03/19/20 17:27 Macrocytosis Not Reportable 03/19/20 17:27 Spherocytes Not Reportable 03/19/20 17:27 Pappenheimer Bodies Not Reportable 03/19/20 17:27 Sickle Cells Not Reportable 03/19/20 17:27 Target Cells Not Reportable 03/19/20 17:27 Tear Drop Cells Not Reportable 03/19/20 17:27 Ovalocytes Not Reportable 03/19/20 17:27 Helmet Cells Not Reportable 03/19/20 17:27 [place] Bodies Not Reportable 03/19/20 17:27 Eldena Rings Not Reportable 03/19/20 17:27 Kristy Cells Not Reportable 03/19/20 17:27 Bite Cells Not Reportable 03/19/20 17:27 Crenated Cell Not Reportable 03/19/20 17:27 Elliptocytes Not Reportable 03/19/20 17:27 Acanthocytes (Spur) Not Reportable 03/19/20 17:27 Rouleaux Not Reportable 03/19/20 17:27 Hemoglobin C Crystals Not Reportable 03/19/20 17:27 Schistocytes Not Reportable 03/19/20 17:27 Malaria parasites Not Reportable 03/19/20 17:27 Jones Bodies Not Reportable 03/19/20 17:27 Hem Pathologist Commnt No 03/19/20 17:27 PT 13.3 Sec. (12.2-14.9) 03/19/20 17:27 INR 1.00 (0.87-1.13) 03/19/20 17:27 APTT 21.8 Sec. (24.2-36.6) L 03/19/20 17:27 Sodium 137 mmol/L (137-145) 03/20/20 04:24 Potassium 4.0 mmol/L (3.6-5.0) 03/20/20 04:24 Chloride 102.8 mmol/L (98-107) 03/20/20 04:24 Carbon Dioxide 27 mmol/L (22-30) 03/20/20 04:24 Anion Gap 11 mmol/L 03/20/20 04:24 BUN 17 mg/dL (9-20) 03/20/20 04:24 Creatinine 1.0 mg/dL (0.8-1.3) 03/20/20 04:24 Estimated GFR > 60 ml/min 03/20/20 04:24 BUN/Creatinine Ratio 17 % 03/20/20 04:24 Glucose 108 mg/dL (75-100) H 03/20/20 04:24 Hemoglobin A1c 5.3 % (4-6) 03/20/20 04:24 Calcium 9.0 mg/dL (8.4-10.2) 03/20/20 04:24 Total Bilirubin 0.40 mg/dL (0.1-1.2) 03/20/20 04:24 AST 13 units/L (5-40) 03/20/20 04:24 ALT 7 units/L (7-56) 03/20/20 04:24 Alkaline Phosphatase 71 units/L (35-129) 03/20/20 04:24 Total Protein 6.6 g/dL (6.3-8.2) 03/20/20 04:24 Albumin 3.6 g/dL (3.9-5) L 03/20/20 04:24 Albumin/Globulin Ratio 1.2 % 03/20/20 04:24 Clarke/IV: Voiding Method Urinal IV Catheter Type [Left Forearm Peripheral IV ] Active Medications - Current Medications Current Medications: Generic Name Dose Route Start Last Admin Trade Name Freq PRN Reason Stop Dose Admin Acetaminophen 650 mg 03/19/20 22:04 Tylenol PO Q4H PRN Pain MILD(1-3)/Fever >100.5/MAYEN Albuterol 2.5 mg 03/19/20 22:20 Proventil IH Q4HRT PRN Shortness Of Breath Arformoterol Tartrate 15 mcg 03/20/20 08:00 03/20/20 09:22 Brovana Nebu IH 15 mcg Q12HRT DIPIKA Administration Bisacodyl 5 mg 03/19/20 21:56 Dulcolax PO DAILY PRN Constipation Budesonide 0.5 mg 03/20/20 08:00 03/20/20 09:21 Pulmicort IH 0.5 mg Q12HRT DIPIKA Administration Famotidine 20 mg 03/19/20 23:00 03/19/20 23:21 Pepcid IV 20 mg BID DIPIKA Administration Heparin Sodium (Porcine) 5,000 unit 03/20/20 10:00 Heparin SUB-Q Q12HR [facility] Hydromorphone HCl 1 mg 03/19/20 22:04 Dilaudid IV Q3H PRN Pain , Severe (7-10) Sodium Chloride 1,000 mls @ 75 mls/hr 03/19/20 22:15 03/19/20 23:22 Nacl 0.9% 1000 Ml IV 75 mls/hr DIRECT DIPIKA Administration Magnesium Oxide 400 mg 03/20/20 10:00 Mag-Ox PO QDAY [facility] Miscellaneous Medication 240 mg 03/20/20 10:00 Apalutamide [Erleada] PO DAILY [facility] Ondansetron HCl 4 mg 03/19/20 22:04 Zofran IV Q8H PRN Nausea And Vomiting Oxycodone/Acetaminophen 1 tab 03/19/20 22:04 03/19/20 23:21 Percocet 5/325 PO 1 tab Q6H PRN Administration Pain, Moderate (4-6) Senna/Docusate Sodium 1 tab 03/20/20 10:00 Senokot S PO DAILY [facility] Sodium Chloride 10 ml 03/20/20 10:00 Sodium Chloride Flush Syringe 10 Ml IV BID DIPIKA Sodium Chloride 10 ml 03/19/20 22:04 Sodium Chloride Flush Syringe 10 Ml IV PRN PRN LINE FLUSH Tamsulosin HCl 0.4 mg 03/19/20 22:00 03/19/20 23:21 Flomax PO 0.4 mg QHS DIPIKA Administration
[2020-03-20] MEDS ORDERED: MORPHINE 10 MG/1 ML INJ IM ONE (14:24)
[2020-03-20] MEDS ORDERED: KETOROLAC 30 MG/1 ML INJ IV ONE (14:25)
[2020-03-20] MEDS ORDERED: SODIUM CHLORIDE 0.9% 250 ML IVPB IV ONE (14:27)
[2020-03-20] MEDS ORDERED: NEOSTIGMINE 10MG/10 ML INJ MDV ONE (14:49)
[2020-03-20] MEDS ORDERED: GLYCOPYRROLATE 0.4 MG/2 ML INJ ONE (14:50)
[2020-03-20] MEDS ORDERED: MORPHINE 4 MG/1 ML INJ IV PRN (15:13)
--- NOTE | 2020-03-20 15:21 | Consultation ---
History of Present Illness - [facility] Consult date: 03/20/20 Consult reason: fracture History of present illness: 74-year-old male with history of COPD, BPH and prostate cancer presented with left hip pain. Patient apparently fell after tripping. Has left hip pain which is about 8 on a scale of 1-10 sharp in nature. Exacerbated with any movement. Relieved by rest. No fever chills or known exposure to coronavirus. No shortness of breath or chest pain. Patient is diagnosed with a left rib fracture in the emergency room after x-rays. Medications and Allergies Allergies Allergy/AdvReac Type Severity Reaction Status Date / Time No Known Allergies Allergy Verified 05/21/19 16:45 Home Medications Medication Instructions Recorded Confirmed Last Taken Type Acetaminophen [Tylenol] 500 mg PO PRN PRN 05/21/19 05/28/19 05/27/19 History Apalutamide [Erleada] 240 mg PO DAILY 05/21/19 05/28/19 05/27/19 History Budesonide/Formoterol Fumarate 2 puff IH DAILY 05/21/19 05/28/19 Unknown History [Symbicort 80-4.5 Mcg Inhaler] Tamsulosin [Flomax] 0.4 mg PO QHS 05/21/19 05/28/19 05/26/19 History Albuterol Sulfate [Proventil Hfa] 2 puff IH PRN PRN 05/22/19 05/28/19 05/27/19 18:00 History Cholecalciferol (Vitamin D3) 5,000 unit PO DAILY 05/22/19 05/22/19 05/14/19 History [Vitamin D3 5,000 UNIT] Magnesium 500 mg PO DAILY 05/22/19 05/22/19 05/14/19 History Om3/Dha/Epa/Cod Liver Oil/A/D3 1 each PO DAILY 05/22/19 05/22/19 05/14/19 History [Cod Liver Oil Softgel] Sennosides/Docusate Sodium [Dok 1 each PO DAILY 05/22/19 05/22/19 05/14/19 History Plus Tablet] bisacodyL [Dulcolax] 5 mg PO DAILY PRN 05/22/19 05/22/19 05/14/19 History Active Meds: Active Medications Acetaminophen (Tylenol) 650 mg PO Q4H PRN PRN Reason: Pain MILD(1-3)/Fever >100.5/MAYEN Albuterol (Proventil) 2.5 mg IH Q4HRT PRN PRN Reason: Shortness Of Breath Arformoterol Tartrate (Brovana Nebu) 15 mcg IH Q12HRT [facility] Last Admin: 03/20/20 09:22 Dose: 15 mcg Documented by: Bisacodyl (Dulcolax) 5 mg PO DAILY PRN PRN Reason: Constipation Budesonide (Pulmicort) 0.5 mg IH Q12HRT [facility] Last Admin: 03/20/20 09:21 Dose: 0.5 mg Documented by: Enoxaparin Sodium (Enoxaparin) 40 mg SUB-Q QDAY [facility] Famotidine (Pepcid) 20 mg IV BID [facility] Last Admin: 03/19/20 23:21 Dose: 20 mg Documented by: Heparin Sodium (Porcine) (Heparin) 5,000 unit SUB-Q Q12HR [facility] Hydromorphone HCl (Dilaudid) 1 mg IV Q3H PRN PRN Reason: Pain , Severe (7-10) Sodium Chloride (Nacl 0.9% 1000 Ml) 1,000 mls @ 75 mls/hr IV DIRECT [facility] Last Admin: 03/19/20 23:22 Dose: 75 mls/hr Documented by: Labetalol HCl (Labetalol) 10 mg IV Q4H PRN PRN Reason: Hypertension Magnesium Oxide (Mag-Ox) 400 mg PO QDAY [facility] Miscellaneous Medication (Apalutamide [Erleada]) 240 mg PO DAILY [facility] Morphine Sulfate (Morphine) 4 mg IV Q4H PRN PRN Reason: Pain , Severe (7-10) Ondansetron HCl (Zofran) 4 mg IV Q8H PRN PRN Reason: Nausea And Vomiting Oxycodone/Acetaminophen (Percocet 5/325) 1 tab PO Q6H PRN PRN Reason: Pain, Moderate (4-6) Last Admin: 03/19/20 23:21 Dose: 1 tab Documented by: Oxycodone/Acetaminophen (Percocet 5/325) 1 tab PO Q6H PRN PRN Reason: Pain, Moderate (4-6) Senna/Docusate Sodium (Senokot S) 1 tab PO DAILY [facility] Sodium Chloride (Sodium Chloride Flush Syringe 10 Ml) 10 ml IV BID DIPIKA Sodium Chloride (Sodium Chloride Flush Syringe 10 Ml) 10 ml IV PRN PRN PRN Reason: LINE FLUSH Sodium Chloride (Sodium Chloride Flush Syringe 10 Ml) 10 ml IV PRN NR Tamsulosin HCl (Flomax) 0.4 mg PO QHS [facility] Last Admin: 03/19/20 23:21 Dose: 0.4 mg Documented by: Physical Examination - Physical exam Eyes: PERRL ENT: Positive: clear oral mucosa Respiratory effort: normal Respiratory: bilateral: CTA Rhythm: regular Heart Sounds: Positive: S1 & S2 General gastrointestinal: Positive: soft, non-tender, non-distended, normal bowel sounds Integumentary: clear, warm, dry Neurologic: Positive: CNII-XII intact, moves all extremities, gait normal. Negative: focal deficits - Cervical Spine Neck pain: none Tenderness with palpation: none Full ROM: yes ROM: flexion: normal ROM: extension: normal ROM: rotation right: normal ROM: rotation left: normal ROM: lateral flexion right: normal ROM: lateral flexion left: normal - Lumbar Spine Back pain: none Tenderness with palpation: none Appearance: normal Full ROM: yes ROM: flexion: normal ROM: extension: normal ROM: rotation right: normal ROM: rotation left: normal ROM: lateral flexion right: normal ROM: lateral flexion left: normal Assessment and Plan Displaced left femoral neck fracture Recommend bipolar hip replacement
--- NOTE | 2020-03-20 15:26 | Procedure Note ---
Date of procedure: 03/20/20 Pre-op diagnosis: Displaced left femoral neck fracture Post-op diagnosis: same Procedure: Left bipolar Hemiarthroplasty Procedure The patient was brought to the OR and placed on the OR table in supine position following induction and intubation by anesthesia the patient was placed in the right lateral decubitus position The left hip was then prepped and draped in the usual sterile manner a timeout procedure was done to identify the patient and the correct operative site. Next a lateral incision was made along the proximal femur was taken down sharply through skin and subcutaneous the fascia sunshine was seen and incised. A Charnley retractor was placed deep within the wound next the anterior capsule was entered the femoral neck fracture was seen the remaining portion of the femoral neck was then osteotomized in line with a stem template The femoral head was retrieved using a corkscrew device measuring the size of the femoral head and a 51 mm diameter was chosen, followed by reaming and broaching to a #9 stem utilizing a neutral neck and a 28 mm head and the construct was then reduced the hip was taken through a range of motion and was found to be stable. All components were removed. Final components were assembled and inserted the hip was then reduced and taken through a range of motion and again it was found to be stable next the wound was copiously irrigated a cocktail mixture of Toradol and morphine. Again and saline was injected into the surrounding soft tissue for postop pain management following this the wound was closed in a standard routine fashion. Dressings were applied the patient tolerated the procedure there were no complications and he was sent to post anesthesia recovery Anesthesia: TAD Surgeon: RAMAN PIRES Mortgage Closer: JP LEWIS Estimated blood loss: 50-100ml Pathology: list (left femoral head and neck fragment) Specimen disposition: to lab Condition: stable Disposition: PACU
[2020-03-20] MEDS: oxyCODONE /ACETAMINOPHEN 5-325MG TAB PO PRN ×2 (17:08→17:15)
[2020-03-20] MEDS: SENNOSIDES/DOCUSATE SODIUM 8.6/50 MG TAB PO SCH (17:18)
[2020-03-20] MEDS: MAGNESIUM OXIDE 400 MG TAB PO SCH (17:18)
[2020-03-20] MEDS: hydrALAZINE 25 MG TAB PO SCH (18:36)
[2020-03-20] MEDS: TAMSULOSIN 0.4 MG CAP PO SCH (21:33)
[2020-03-21] MEDS: hydrALAZINE 25 MG TAB PO SCH ×3 (02:30→19:30)
[2020-03-21 05:49] LABS: Hematocrit 29.5 % (35.5-45.6); Hemoglobin 10.1 gm/dl (11.8-15.2)
[2020-03-21] MEDS: BUDESONIDE 0.5 MG/2 ML NEBU IH SCH ×2 (07:25→21:06)
[2020-03-21] MEDS: ARFORMOTEROL 15 MCG/2 ML NEBU IH SCH ×2 (07:25→21:06)
[2020-03-21] MEDS: FAMOTIDINE 20 MG TAB PO SCH ×2 (11:30→21:58)
[2020-03-21] MEDS: SENNOSIDES/DOCUSATE SODIUM 8.6/50 MG TAB PO SCH (11:30)
[2020-03-21] MEDS: ENOXAPARIN 40 MG/0.4 ML INJ SUB-Q SCH (12:01)
--- NOTE | 2020-03-21 12:30 | Progress Note ---
Assessment and Plan s/p bipolar hip replacement continue PT and observation Subjective Date of service: 03/21/20 Interval history: no c/o's noted Objective Vital signs: Vital Signs - 12hr 03/21/20 03/21/20 03/21/20 02:30 05:37 07:10 Temperature 97.8 F 98.2 F Pulse Rate 68 66 64 Pulse Rate [ Bilateral] Respiratory 18 20 Rate Respiratory Rate [Bilateral ] Blood Pressure 158/88 140/67 141/62 Blood Pressure [Left] O2 Sat by Pulse 97 97 Oximetry 03/21/20 03/21/20 03/21/20 07:24 07:25 11:38 Temperature 98.7 F Pulse Rate 76 Pulse Rate [ 63 Bilateral] Respiratory 20 Rate Respiratory 16 Rate [Bilateral ] Blood Pressure Blood Pressure 136/60 [Left] O2 Sat by Pulse 99 98 Oximetry Incision: healing, clean and dry Weight bearing status: as tolerated - Labs CBC & BMP: 03/21/20 05:20 03/20/20 04:24 Labs: Abnormal lab results 03/21/20 Range/Units 05:20 Hgb 10.1 L (11.8-15.2) gm/dl Hct 29.5 L (35.5-45.6) %
--- NOTE | 2020-03-21 13:18 | XRay Report ---
Left hip 3 views INDICATION: Left hip pain. IMPRESSION: Intact left hip arthroplasty. Signer Name: Toño Sandoval MD Signed: 03/21/2020 1:13 PM Workstation Name: [id number]
[2020-03-21] MEDS: oxyCODONE /ACETAMINOPHEN 5-325MG TAB PO PRN ×2 (13:30→20:04)
[2020-03-21] MEDS: ERLEADA 60 MG PO SCH (16:08)
[2020-03-21] MEDS: MAGNESIUM OXIDE 400 MG TAB PO SCH (16:10)
--- NOTE | 2020-03-21 16:22 | Progress Note ---
Assessment and Plan Assessment and plan: s/p left hip bipolar hemiarthroplasty -- Fracture of femoral neck, left Current Visit: Yes Status: Acute Plan to address problem: Orthophoric evaluated Status post left hip bipolar hemiarthroplasty Postop care per Ortho Pain medications, IV fluids, PT OT Rehabilitation -- BPH (benign prostatic hyperplasia) Current Visit: Yes Status: Chronic Plan to address problem: Continue Flomax -- History of prostate cancer Current Visit: Yes Status: Chronic Plan to address problem: Continue prostate cancer medicines -- COPD (chronic obstructive pulmonary disease) Current Visit: Yes Status: Chronic Plan to address problem: Continue bronchodilators -- DVT prophylaxis Current Visit: Yes Status: Acute Plan to address problem: On SCDs and GI prophylaxis Continue PT OT rehab DC planning per case management History Interval history: I have seen and examined the patient at the bedside Patient's chart and medications reviewed. Patient feels better no new complaints Vital signs noted Hospitalist Physical - Constitutional Vitals: Temp Pulse Resp BP Pulse Ox 98.2 F 80 20 151/75 99 03/21/20 15:56 03/21/20 15:56 03/21/20 15:56 03/21/20 15:56 03/21/20 15:56 General appearance: Present: no acute distress, cachectic, other (Low BMI) - EENT Eyes: Present: PERRL, EOM intact - Neck Neck: Present: supple, normal ROM - Respiratory Respiratory effort: normal Respiratory: bilateral: diminished, negative: rales, rhonchi, wheezing - Cardiovascular Rhythm: regular Heart Sounds: Present: S1 & S2 - Extremities Extremities: no ischemia, abnormal (Postop state) - Abdominal General gastrointestinal: soft, non-tender, non-distended, normal bowel sounds - Integumentary Integumentary: Present: clear, warm - Psychiatric Psychiatric: appropriate mood/affect, cooperative - Neurologic Neurologic: moves all extremities Results - Labs CBC & Chem 7: 03/21/20 05:20 03/20/20 04:24 Labs: Laboratory Last Values WBC 9.1 K/mm3 (4.5-11.0) 03/20/20 04:24 RBC 3.75 M/mm3 (3.65-5.03) 03/20/20 04:24 Hgb 10.1 gm/dl (11.8-15.2) L 03/21/20 05:20 Hct 29.5 % (35.5-45.6) L 03/21/20 05:20 MCV 88 fl (84-94) 03/20/20 04:24 MCH 30 pg (28-32) 03/20/20 04:24 MCHC 35 % (32-34) H 03/20/20 04:24 RDW 13.9 % (13.2-15.2) 03/20/20 04:24 Plt Count 188 K/mm3 (140-440) 03/20/20 04:24 Lymph % (Auto) 15.6 % (13.4-35.0) 03/20/20 04:24 [place] % (Auto) 6.9 % (0.0-7.3) 03/20/20 04:24 Eos % (Auto) 1.2 % (0.0-4.3) 03/20/20 04:24 Baso % (Auto) 0.4 % (0.0-1.8) 03/20/20 04:24 Lymph # (Auto) 1.4 K/mm3 (1.2-5.4) 03/20/20 04:24 [place] # (Auto) 0.6 K/mm3 (0.0-0.8) 03/20/20 04:24 Eos # (Auto) 0.1 K/mm3 (0.0-0.4) 03/20/20 04:24 Baso # (Auto) 0.0 K/mm3 (0.0-0.1) 03/20/20 04:24 Add Manual Diff Complete 03/19/20 17:27 Total Counted 100 03/19/20 17:27 Seg Neutrophils % 75.9 % (40.0-70.0) H 03/20/20 04:24 Seg Neuts % (Manual) 90.0 % (40.0-70.0) H 03/19/20 17:27 Band Neutrophils % 0 % 03/19/20 17:27 Lymphocytes % (Manual) 4.0 % (13.4-35.0) L 03/19/20 17:27 Reactive Lymphs % (Man) 0 % 03/19/20 17:27 Monocytes % (Manual) 6.0 % (0.0-7.3) 03/19/20 17:27 Eosinophils % (Manual) 0 % (0.0-4.3) 03/19/20 17:27 Basophils % (Manual) 0 % (0.0-1.8) 03/19/20 17:27 Metamyelocytes % 0 % 03/19/20 17:27 Myelocytes % 0 % 03/19/20 17:27 Promyelocytes % 0 % 03/19/20 17:27 Blast Cells % 0 % 03/19/20 17:27 Nucleated RBC % Not Reportable 03/19/20 17:27 Seg Neutrophils # 6.9 K/mm3 (1.8-7.7) 03/20/20 04:24 Seg Neutrophils # Man 10.9 K/mm3 (1.8-7.7) H 03/19/20 17: Band Neutrophils # 0.0 K/mm3 03/19/20 17: Lymphocytes # (Manual) 0.5 K/mm3 (1.2-5.4) L 03/19/20 17:27 Abs React Lymphs (Man) 0.0 K/mm3 03/19/20 17: Monocytes # (Manual) 0.7 K/mm3 (0.0-0.8) 03/19/20 17:27 Eosinophils # (Manual) 0.0 K/mm3 (0.0-0.4) 03/19/20 17:27 Basophils # (Manual) 0.0 K/mm3 (0.0-0.1) 03/19/20 17:27 Metamyelocytes # 0.0 K/mm3 03/19/20 17: Myelocytes # 0.0 K/mm3 03/19/20 17:27 Promyelocytes # 0.0 K/mm3 03/19/20 17:27 Blast Cells # 0.0 K/mm3 03/19/20 17:27 WBC Morphology Not Reportable 03/19/20 17:27 Hypersegmented Neuts Not Reportable 03/19/20 17:27 Hyposegmented Neuts Not Reportable 03/19/20 17:27 Hypogranular Neuts Not Reportable 03/19/20 17:27 Smudge Cells Not Reportable 03/19/20 17:27 Toxic Granulation Not Reportable 03/19/20 17:27 Toxic Vacuolation Not Reportable 03/19/20 17:27 Dohle Bodies Not Reportable 03/19/20 17:27 Pelger-Huet Anomaly Not Reportable 03/19/20 17:27 Frank Rods Not Reportable 03/19/20 17:27 Platelet Estimate Not Reportable 03/19/20 17:27 Clumped Platelets Not Reportable 03/19/20 17:27 Plt Clumps, EDTA Not Reportable 03/19/20 17:27 Large Platelets Not Reportable 03/19/20 17:27 Giant Platelets Not Reportable 03/19/20 17:27 Platelet Satelliting Not Reportable 03/19/20 17:27 Plt Morphology Comment Not Reportable 03/19/20 17:27 RBC Morphology Normal 03/19/20 17:27 Dimorphic RBCs Not Reportable 03/19/20 17:27 Polychromasia Not Reportable 03/19/20 17:27 Hypochromasia Not Reportable 03/19/20 17:27 Poikilocytosis Not Reportable 03/19/20 17:27 Anisocytosis Not Reportable 03/19/20 17:27 Microcytosis Not Reportable 03/19/20 17:27 Macrocytosis Not Reportable 03/19/20 17:27 Spherocytes Not Reportable 03/19/20 17:27 Pappenheimer Bodies Not Reportable 03/19/20 17:27 Sickle Cells Not Reportable 03/19/20 17:27 Target Cells Not Reportable 03/19/20 17:27 Tear Drop Cells Not Reportable 03/19/20 17:27 Ovalocytes Not Reportable 03/19/20 17:27 Helmet Cells Not Reportable 03/19/20 17:27 [place] Bodies Not Reportable 03/19/20 17:27 [place] Rings Not Reportable 03/19/20 17:27 [place] Cells Not Reportable 03/19/20 17:27 Bite Cells Not Reportable 03/19/20 17:27 Crenated Cell Not Reportable 03/19/20 17:27 Elliptocytes Not Reportable 03/19/20 17:27 Acanthocytes (Spur) Not Reportable 03/19/20 17:27 Rouleaux Not Reportable 03/19/20 17:27 Hemoglobin C Crystals Not Reportable 03/19/20 17:27 Schistocytes Not Reportable 03/19/20 17:27 Malaria parasites Not Reportable 03/19/20 17:27 Jones Bodies Not Reportable 03/19/20 17:27 Hem Pathologist Commnt No 03/19/20 17:27 PT 13.3 Sec. (12.2-14.9) 03/19/20 17:27 INR 1.00 (0.87-1.13) 03/19/20 17:27 APTT 21.8 Sec. (24.2-36.6) L 03/19/20 17:27 Sodium 137 mmol/L (137-145) 03/20/20 04:24 Potassium 4.0 mmol/L (3.6-5.0) 03/20/20 04:24 Chloride 102.8 mmol/L (98-107) 03/20/20 04:24 Carbon Dioxide 27 mmol/L (22-30) 03/20/20 04:24 Anion Gap 11 mmol/L 03/20/20 04:24 BUN 17 mg/dL (9-20) 03/20/20 04:24 Creatinine 1.0 mg/dL (0.8-1.3) 03/20/20 04:24 Estimated GFR > 60 ml/min 03/20/20 04:24 BUN/Creatinine Ratio 17 % 03/20/20 04:24 Glucose 108 mg/dL (75-100) H 03/20/20 04:24 Hemoglobin A1c 5.3 % (4-6) 03/20/20 04:24 Calcium 9.0 mg/dL (8.4-10.2) 03/20/20 04:24 Total Bilirubin 0.40 mg/dL (0.1-1.2) 03/20/20 04:24 AST 13 units/L (5-40) 03/20/20 04:24 ALT 7 units/L (7-56) 03/20/20 04:24 Alkaline Phosphatase 71 units/L (35-129) 03/20/20 04:24 Total Protein 6.6 g/dL (6.3-8.2) 03/20/20 04:24 Albumin 3.6 g/dL (3.9-5) L 03/20/20 04:24 Albumin/Globulin Ratio 1.2 % 03/20/20 04:24 Clarke/IV: Voiding Method Urinal IV Catheter Type [Right Wrist] Peripheral IV IV Catheter Type [Left Forearm Peripheral IV ] Active Medications - Current Medications Current Medications: Generic Name Dose Route Start Last Admin Trade Name Freq PRN Reason Stop Dose Admin Acetaminophen 650 mg 03/19/20 22:04 Tylenol PO Q4H PRN Pain MILD(1-3)/Fever >100.5/MAYEN Albuterol 2.5 mg 03/19/20 22:20 Proventil IH Q4HRT PRN Shortness Of Breath Arformoterol Tartrate 15 mcg 03/20/20 08:00 03/21/20 07:25 Brovana Nebu IH 15 mcg Q12HRT DIPIKA Administration Bisacodyl 5 mg 03/19/20 21:56 Dulcolax PO DAILY PRN Constipation Budesonide 0.5 mg 03/20/20 08:00 03/21/20 07:25 Pulmicort IH 0.5 mg Q12HRT DIPIKA Administration Enoxaparin Sodium 40 mg 03/21/20 10:00 03/21/20 12:01 Enoxaparin SUB-Q 40 mg QDAY DIPIKA Administration Famotidine 20 mg 03/21/20 10:00 03/21/20 11:30 Pepcid PO 20 mg BID IDPIKA Administration Hydralazine HCl 25 mg 03/20/20 18:00 03/21/20 11:30 Apresoline PO 25 mg Q8H DIPIKA Administration Hydromorphone HCl 1 mg 03/19/20 22:04 Dilaudid IV Q3H PRN Pain , Severe (7-10) Sodium Chloride 1,000 mls @ 75 mls/hr 03/19/20 22:15 03/19/20 23:22 Nacl 0.9% 1000 Ml IV 75 mls/hr DIRECT DIPIKA Administration Labetalol HCl 10 mg 03/20/20 14:20 03/20/20 15:24 Labetalol IV 10 mg Q4H PRN Administration Hypertension Magnesium Oxide 400 mg 03/20/20 10:00 03/21/20 16:10 Mag-Ox PO 400 mg QDAY DIPIKA Administration Miscellaneous Medication 4 each 03/21/20 10:00 03/21/20 16:08 Non-Formulary PO 4 each DAILY DIPIKA Administration Morphine Sulfate 4 mg 03/20/20 15:13 Morphine IV Q4H PRN Pain , Severe (7-10) Ondansetron HCl 4 mg 03/19/20 22:04 Zofran IV Q8H PRN Nausea And Vomiting Oxycodone/Acetaminophen 1 tab 03/20/20 15:13 03/20/20 17:08 Percocet 5/325 PO 1 tab Q6H PRN Administration Pain, Moderate (4-6) Senna/Docusate Sodium 1 tab 03/20/20 10:00 03/21/20 11:30 Senokot S PO 1 tab DAILY DIPIKA Administration Sodium Chloride 10 ml 03/20/20 10:00 03/21/20 11:05 Sodium Chloride Flush Syringe 10 Ml IV 10 ml BID DIPIKA Administration Sodium Chloride 10 ml 03/19/20 22:04 Sodium Chloride Flush Syringe 10 Ml IV PRN PRN LINE FLUSH Tamsulosin HCl 0.4 mg 03/19/20 22:00 03/20/20 21:33 Flomax PO 0.4 mg QHS DIPIAK Administration
[2020-03-21] MEDS: APALUTAMIDE 240 MG PO SCH (19:13)
[2020-03-21] MEDS: TAMSULOSIN 0.4 MG CAP PO SCH (21:58)
[2020-03-22] MEDS: hydrALAZINE 25 MG TAB PO SCH ×3 (03:38→18:19)
[2020-03-22] MEDS: ARFORMOTEROL 15 MCG/2 ML NEBU IH SCH ×2 (07:39→20:38)
[2020-03-22] MEDS: BUDESONIDE 0.5 MG/2 ML NEBU IH SCH ×2 (07:39→20:38)
[2020-03-22] MEDS: FAMOTIDINE 20 MG TAB PO SCH ×2 (10:09→22:20)
[2020-03-22] MEDS: SENNOSIDES/DOCUSATE SODIUM 8.6/50 MG TAB PO SCH (10:09)
[2020-03-22] MEDS: MAGNESIUM OXIDE 400 MG TAB PO SCH (10:09)
[2020-03-22] MEDS: ENOXAPARIN 40 MG/0.4 ML INJ SUB-Q SCH (10:10)
[2020-03-22] MEDS: SODIUM CHLORIDE 0.9% 1000 ML 1,000 ML IV SCH (10:10)
[2020-03-22] MEDS: ERLEADA 60 MG PO SCH (10:13)
--- NOTE | 2020-03-22 16:18 | Progress Note ---
Assessment and Plan Assessment and plan: s/p left hip bipolar hemiarthroplasty --Left femur neck fracture Current Visit: Yes Status: Acute Plan to address problem: s/p left hip bipolar hemiarthroplasty Postop care per Ortho Pain medications, PT OT PT recommend home health PT, walker\ -- BPH (benign prostatic hyperplasia) Current Visit: Yes Status: Chronic Plan to address problem: Continue Flomax -- History of prostate cancer Current Visit: Yes Status: Chronic Plan to address problem: Continue prostate cancer medicines -- COPD (chronic obstructive pulmonary disease) Current Visit: Yes Status: Chronic Plan to address problem: Continue bronchodilators -- DVT prophylaxis Current Visit: Yes Status: Acute Plan to address problem: On SCDs and GI prophylaxis Continue PT OT rehab DC planning per case management Discharge home with home PT when stable History Interval history: I have seen and examined the patient at the bedside Patient's chart and medications reviewed Patient feels slightly better Receiving physical therapy occupational therapy Blood pressure slightly elevated Hospitalist Physical - Constitutional Vitals: Temp Pulse Resp BP Pulse Ox 98.5 F 85 18 185/78 95 03/22/20 15:51 03/22/20 15:51 03/22/20 15:51 03/22/20 15:51 03/22/20 15:51 General appearance: Present: no acute distress, cachectic, other (Low BMI) - EENT Eyes: Present: PERRL, EOM intact - Neck Neck: Present: supple, normal ROM - Respiratory Respiratory effort: normal Respiratory: bilateral: diminished, negative: rales, rhonchi, wheezing - Cardiovascular Rhythm: regular Heart Sounds: Present: S1 & S2 - Extremities Extremities: no ischemia, No edema - Abdominal General gastrointestinal: soft, non-tender, non-distended, normal bowel sounds - Integumentary Integumentary: Present: clear, warm - Psychiatric Psychiatric: appropriate mood/affect, cooperative - Neurologic Neurologic: moves all extremities Results - Labs CBC & Chem 7: 03/21/20 05:20 03/20/20 04:24 Labs: Laboratory Last Values WBC 9.1 K/mm3 (4.5-11.0) 03/20/20 04:24 RBC 3.75 M/mm3 (3.65-5.03) 03/20/20 04:24 Hgb 10.1 gm/dl (11.8-15.2) L 03/21/20 05:20 Hct 29.5 % (35.5-45.6) L 03/21/20 05:20 MCV 88 fl (84-94) 03/20/20 04:24 MCH 30 pg (28-32) 03/20/20 04:24 MCHC 35 % (32-34) H 03/20/20 04:24 RDW 13.9 % (13.2-15.2) 03/20/20 04:24 Plt Count 188 K/mm3 (140-440) 03/20/20 04:24 Lymph % (Auto) 15.6 % (13.4-35.0) 03/20/20 04:24 [place] % (Auto) 6.9 % (0.0-7.3) 03/20/20 04:24 Eos % (Auto) 1.2 % (0.0-4.3) 03/20/20 04:24 Baso % (Auto) 0.4 % (0.0-1.8) 03/20/20 04:24 Lymph # (Auto) 1.4 K/mm3 (1.2-5.4) 03/20/20 04:24 [place] # (Auto) 0.6 K/mm3 (0.0-0.8) 03/20/20 04:24 Eos # (Auto) 0.1 K/mm3 (0.0-0.4) 03/20/20 04:24 Baso # (Auto) 0.0 K/mm3 (0.0-0.1) 03/20/20 04:24 Add Manual Diff Complete 03/19/20 17:27 Total Counted 100 03/19/20 17:27 Seg Neutrophils % 75.9 % (40.0-70.0) H 03/20/20 04:24 Seg Neuts % (Manual) 90.0 % (40.0-70.0) H 03/19/20 17:27 Band Neutrophils % 0 % 03/19/20 17:27 Lymphocytes % (Manual) 4.0 % (13.4-35.0) L 03/19/20 17:27 Reactive Lymphs % (Man) 0 % 03/19/20 17:27 Monocytes % (Manual) 6.0 % (0.0-7.3) 03/19/20 17:27 Eosinophils % (Manual) 0 % (0.0-4.3) 03/19/20 17:27 Basophils % (Manual) 0 % (0.0-1.8) 03/19/20 17:27 Metamyelocytes % 0 % 03/19/20 17:27 Myelocytes % 0 % 03/19/20 17:27 Promyelocytes % 0 % 03/19/20 17:27 Blast Cells % 0 % 03/19/20 17:27 Nucleated RBC % Not Reportable 03/19/20 17:27 Seg Neutrophils # 6.9 K/mm3 (1.8-7.7) 03/20/20 04:24 Seg Neutrophils # Man 10.9 K/mm3 (1.8-7.7) H 03/19/20 17:27 Band Neutrophils # 0.0 K/mm3 03/19/20 17:27 Lymphocytes # (Manual) 0.5 K/mm3 (1.2-5.4) L 03/19/20 17:27 Abs React Lymphs (Man) 0.0 K/mm3 03/19/20 17: Monocytes # (Manual) 0.7 K/mm3 (0.0-0.8) 03/19/20 17:27 Eosinophils # (Manual) 0.0 K/mm3 (0.0-0.4) 03/19/20 17:27 Basophils # (Manual) 0.0 K/mm3 (0.0-0.1) 03/19/20 17:27 Metamyelocytes # 0.0 K/mm3 03/19/20 17:27 Myelocytes # 0.0 K/mm3 03/19/20 17:27 Promyelocytes # 0.0 K/mm3 03/19/20 17:27 Blast Cells # 0.0 K/mm3 03/19/20 17:27 WBC Morphology Not Reportable 03/19/20 17:27 Hypersegmented Neuts Not Reportable 03/19/20 17:27 Hyposegmented Neuts Not Reportable 03/19/20 17:27 Hypogranular Neuts Not Reportable 03/19/20 17:27 Smudge Cells Not Reportable 03/19/20 17:27 Toxic Granulation Not Reportable 03/19/20 17:27 Toxic Vacuolation Not Reportable 03/19/20 17:27 Dohle Bodies Not Reportable 03/19/20 17:27 Pelger-Huet Anomaly Not Reportable 03/19/20 17:27 Frank Rods Not Reportable 03/19/20 17:27 Platelet Estimate Not Reportable 03/19/20 17:27 Clumped Platelets Not Reportable 03/19/20 17:27 Plt Clumps, EDTA Not Reportable 03/19/20 17:27 Large Platelets Not Reportable 03/19/20 17:27 Giant Platelets Not Reportable 03/19/20 17:27 Platelet Satelliting Not Reportable 03/19/20 17:27 Plt Morphology Comment Not Reportable 03/19/20 17:27 RBC Morphology Normal 03/19/20 17:27 Dimorphic RBCs Not Reportable 03/19/20 17:27 Polychromasia Not Reportable 03/19/20 17:27 Hypochromasia Not Reportable 03/19/20 17:27 Poikilocytosis Not Reportable 03/19/20 17:27 Anisocytosis Not Reportable 03/19/20 17:27 Microcytosis Not Reportable 03/19/20 17:27 Macrocytosis Not Reportable 03/19/20 17:27 Spherocytes Not Reportable 03/19/20 17:27 Pappenheimer Bodies Not Reportable 03/19/20 17:27 Sickle Cells Not Reportable 03/19/20 17:27 Target Cells Not Reportable 03/19/20 17:27 Tear Drop Cells Not Reportable 03/19/20 17:27 Ovalocytes Not Reportable 03/19/20 17:27 Helmet Cells Not Reportable 03/19/20 17:27 [place] Bodies Not Reportable 03/19/20 17:27 [place] Rings Not Reportable 03/19/20 17:27 [place] Cells Not Reportable 03/19/20 17:27 Bite Cells Not Reportable 03/19/20 17:27 Crenated Cell Not Reportable 03/19/20 17:27 Elliptocytes Not Reportable 03/19/20 17:27 Acanthocytes (Spur) Not Reportable 03/19/20 17:27 Rouleaux Not Reportable 03/19/20 17:27 Hemoglobin C Crystals Not Reportable 03/19/20 17:27 Schistocytes Not Reportable 03/19/20 17:27 Malaria parasites Not Reportable 03/19/20 17:27 Jones Bodies Not Reportable 03/19/20 17:27 Hem Pathologist Commnt No 03/19/20 17:27 PT 13.3 Sec. (12.2-14.9) 03/19/20 17:27 INR 1.00 (0.87-1.13) 03/19/20 17:27 APTT 21.8 Sec. (24.2-36.6) L 03/19/20 17:27 Sodium 137 mmol/L (137-145) 03/20/20 04:24 Potassium 4.0 mmol/L (3.6-5.0) 03/20/20 04:24 Chloride 102.8 mmol/L (98-107) 03/20/20 04:24 Carbon Dioxide 27 mmol/L (22-30) 03/20/20 04:24 Anion Gap 11 mmol/L 03/20/20 04:24 BUN 17 mg/dL (9-20) 03/20/20 04:24 Creatinine 1.0 mg/dL (0.8-1.3) 03/20/20 04:24 Estimated GFR > 60 ml/min 03/20/20 04:24 BUN/Creatinine Ratio 17 % 03/20/20 04:24 Glucose 108 mg/dL (75-100) H 03/20/20 04:24 Hemoglobin A1c 5.3 % (4-6) 03/20/20 04:24 Calcium 9.0 mg/dL (8.4-10.2) 03/20/20 04:24 Total Bilirubin 0.40 mg/dL (0.1-1.2) 03/20/20 04:24 AST 13 units/L (5-40) 03/20/20 04:24 ALT 7 units/L (7-56) 03/20/20 04:24 Alkaline Phosphatase 71 units/L (35-129) 03/20/20 04:24 Total Protein 6.6 g/dL (6.3-8.2) 03/20/20 04:24 Albumin 3.6 g/dL (3.9-5) L 03/20/20 04:24 Albumin/Globulin Ratio 1.2 % 03/20/20 04:24 Clarke/IV: Voiding Method Condom Catheter IV Catheter Type [Right Wrist] Peripheral IV IV Catheter Type [Left Forearm Peripheral IV ] Active Medications - Current Medications Current Medications: Generic Name Dose Route Start Last Admin Trade Name Freq PRN Reason Stop Dose Admin Acetaminophen 650 mg 03/19/20 22:04 Tylenol PO Q4H PRN Pain MILD(1-3)/Fever >100.5/MAYEN Albuterol 2.5 mg 03/19/20 22:20 Proventil IH Q4HRT PRN Shortness Of Breath Arformoterol Tartrate 15 mcg 03/20/20 08:00 03/22/20 07:39 Brovana Nebu IH 15 mcg Q12HRT DIPIKA Administration Bisacodyl 5 mg 03/19/20 21:56 Dulcolax PO DAILY PRN Constipation Budesonide 0.5 mg 03/20/20 08:00 03/22/20 07:39 Pulmicort IH 0.5 mg Q12HRT DIPIKA Administration Enoxaparin Sodium 40 mg 03/21/20 10:00 03/22/20 10:10 Enoxaparin SUB-Q 40 mg QDAY DIPIKA Administration Famotidine 20 mg 03/21/20 10:00 03/22/20 10:09 Pepcid PO 20 mg BID DIPIKA Administration Hydralazine HCl 25 mg 03/20/20 18:00 03/22/20 10:10 Apresoline PO 25 mg Q8H DIPIKA Administration Hydromorphone HCl 1 mg 03/19/20 22:04 Dilaudid IV Q3H PRN Pain , Severe (7-10) Sodium Chloride 1,000 mls @ 75 mls/hr 03/19/20 22:15 03/22/20 10:10 Nacl 0.9% 1000 Ml IV 75 mls/hr DIRECT DIPIKA Administration Labetalol HCl 10 mg 03/20/20 14:20 03/20/20 15:24 Labetalol IV 10 mg Q4H PRN Administration Hypertension Magnesium Oxide 400 mg 03/20/20 10:00 03/22/20 10:09 Mag-Ox PO 400 mg QDAY DIPIKA Administration Miscellaneous Medication 4 each 03/21/20 10:00 03/22/20 10:13 Non-Formulary PO 4 each DAILY DIPIKA Administration Morphine Sulfate 4 mg 03/20/20 15:13 Morphine IV Q4H PRN Pain , Severe (7-10) Ondansetron HCl 4 mg 03/19/20 22:04 Zofran IV Q8H PRN Nausea And Vomiting Oxycodone/Acetaminophen 1 tab 03/20/20 15:13 03/21/20 20:04 Percocet 5/325 PO 1 tab Q6H PRN Administration Pain, Moderate (4-6) Senna/Docusate Sodium 1 tab 03/20/20 10:00 03/22/20 10:09 Senokot S PO 1 tab DAILY DIPIKA Administration Sodium Chloride 10 ml 03/20/20 10:00 03/22/20 10:14 Sodium Chloride Flush Syringe 10 Ml IV 10 ml BID DIPIKA Administration Sodium Chloride 10 ml 03/19/20 22:04 Sodium Chloride Flush Syringe 10 Ml IV PRN PRN LINE FLUSH Tamsulosin HCl 0.4 mg 03/19/20 22:00 03/21/20 21:58 Flomax PO 0.4 mg QHS DIPIKA Administration Nutrition/Malnutrition Assess - Dietary Evaluation Nutrition/Malnutrition Findings: Nutrition Notes Start: 03/22/20 11:13 Freq: Status: Active Protocol: Document 03/22/20 11:13 LM (Rec: 03/22/20 11:48 LM [id number]) Nutrition Notes Need for Assessment generated from: Low BMI Initial or Follow up Assessment Current Diagnosis COPD Other Pertinent Diagnosis Femoral neck fx, L hip surgical wound, fall, BPH, hx prostate CA Current Diet Regular diet Labs/Tests Reviewed Pertinent Medications Reviewed Height 6 ft 3 in Weight 65.1 kg [place] Body Weight (kg) 89.09 BMI 17.9 Weight Status Underweight Subjective/Other Information Low BMI screen. Pt not in room at tiem of visit. Pt has 50- 100% intakes in chart. Burn Absent Trauma Absent Minimum of two criteria No physical signs of malnutrition #1 Nutrition Diagnosis Increased nutrient needs ( specify in comment below) Comments: Protein Etiology Wound healing As Evidenced by Signs and Symptoms pt with L hip surgical wound Is patient on ventilator? No Is Patient Ambulatory and/or Out of Bed No REE-([facility]-confined to bed) 1766.460 Kcal/Kg value to use for calculation 32 Approximate Energy Requirements Using 2083 kcal/Kg Calculation Used for Recommendations Kcal/kg Additional Notes Protein: 81- 98g (1.25-1.5g/kg ) Fluid: 1ml/kcal Nutrition Intervention Change Diet Order: continue Goal #1 Meet at least 75% energy and protein needs Goal #2 Wound healing Anticipated Discharge Needs: Regular Follow-Up By: 03/24/20 Additional Comments F/U for intakes, full assessment
[2020-03-22] MEDS: oxyCODONE /ACETAMINOPHEN 5-325MG TAB PO PRN (16:59)
[2020-03-22] MEDS: NIFEdipine XL 30 MG TAB PO SCH (22:20)
[2020-03-22] MEDS: TAMSULOSIN 0.4 MG CAP PO SCH (22:20)
[2020-03-23] MEDS: hydrALAZINE 25 MG TAB PO SCH ×3 (01:46→16:44)
[2020-03-23] MEDS: BUDESONIDE 0.5 MG/2 ML NEBU IH SCH ×3 (07:00→20:18)
[2020-03-23] MEDS: ARFORMOTEROL 15 MCG/2 ML NEBU IH SCH ×3 (07:00→20:19)
[2020-03-23] MEDS: MAGNESIUM OXIDE 400 MG TAB PO SCH (09:17)
[2020-03-23] MEDS: SENNOSIDES/DOCUSATE SODIUM 8.6/50 MG TAB PO SCH (09:17)
[2020-03-23] MEDS: FAMOTIDINE 20 MG TAB PO SCH ×2 (09:17→21:31)
[2020-03-23] MEDS: NIFEdipine XL 30 MG TAB PO SCH ×2 (09:17→21:31)
[2020-03-23] MEDS: ENOXAPARIN 40 MG/0.4 ML INJ SUB-Q SCH (09:18)
[2020-03-23] MEDS: ERLEADA 60 MG PO SCH (09:19)
--- NOTE | 2020-03-23 15:09 | Progress Note ---
Assessment and Plan Continue physical therapy and rehab hopefully discharge to home soon Subjective Date of service: 03/23/20 Interval history: No complaints noted resting comfortably in bed Objective Vital signs: Vital Signs - 12hr 03/23/20 03/23/20 03/23/20 07:07 07:13 07:28 Temperature 98.6 F 98.4 F Pulse Rate 95 H 82 Respiratory 18 18 18 Rate Blood Pressure 122/65 Blood Pressure 125/69 [Left] O2 Sat by Pulse 93 94 Oximetry 03/23/20 11:22 Temperature 98.1 F Pulse Rate 96 H Respiratory 18 Rate Blood Pressure 116/59 Blood Pressure [Left] O2 Sat by Pulse 96 Oximetry Incision: healing, clean and dry Weight bearing status: as tolerated - Labs CBC & BMP: 03/21/20 05:20 03/20/20 04:24
--- NOTE | 2020-03-23 17:56 | Progress Note ---
Assessment and Plan Assessment and plan: s/p left hip bipolar hemiarthroplasty --Left femur neck fracture Current Visit: Yes Status: Acute Plan to address problem: s/p left hip bipolar hemiarthroplasty Postop care per Ortho Pain medications, PT OT Follow PT OT rehab evaluation recommendation DC planning per case management -- BPH (benign prostatic hyperplasia) Current Visit: Yes Status: Chronic Plan to address problem: Continue Flomax -- History of prostate cancer Current Visit: Yes Status: Chronic Plan to address problem: Continue current medications -- COPD (chronic obstructive pulmonary disease) Current Visit: Yes Status: Chronic Plan to address problem: Stable on current bronchodilators --Hypertension; Current Visit: Yes Status: Chronic Plan to address problem: Well controlled on nifedipine and hydralazine PRN IV labetalol -- DVT prophylaxis Current Visit: Yes Status: Acute . Plan to address problem: On SCDs and GI prophylaxis Continue PT OT rehab DC planning per case management Discharge home with home PT when stable Plan of care reviewed with the patient and her nurse 03/23; patient is tolerating physical therapy occupational therapy Discharge planning per case management History Interval history: I have seen and examined the patient at the bedside this afternoon Patient's chart and medications reviewed Patient is cheerful eating his lunch, no new complaints Tolerating physical therapy Vital signs noted Hospitalist Physical - Constitutional Vitals: Temp Pulse Resp BP Pulse Ox 99.3 F 92 H 16 131/69 97 03/23/20 15:55 03/23/20 17:44 03/23/20 17:44 03/23/20 15:55 03/23/20 17:42 General appearance: Present: no acute distress, cachectic, other (Low BMI) - EENT Eyes: Present: PERRL, EOM intact - Neck Neck: Present: supple, normal ROM - Respiratory Respiratory effort: normal Respiratory: bilateral: diminished, negative: rales, rhonchi, wheezing - Cardiovascular Rhythm: regular Heart Sounds: Present: S1 & S2 - Extremities Extremities: no ischemia, No edema - Abdominal General gastrointestinal: soft, non-tender, non-distended, normal bowel sounds - Integumentary Integumentary: Present: clear, warm - Psychiatric Psychiatric: appropriate mood/affect, cooperative - Neurologic Neurologic: moves all extremities Results - Labs CBC & Chem 7: 03/21/20 05:20 03/20/20 04:24 Labs: Laboratory Last Values WBC 9.1 K/mm3 (4.5-11.0) 03/20/20 04:24 RBC 3.75 M/mm3 (3.65-5.03) 03/20/20 04:24 Hgb 10.1 gm/dl (11.8-15.2) L 03/21/20 05:20 Hct 29.5 % (35.5-45.6) L 03/21/20 05:20 MCV 88 fl (84-94) 03/20/20 04:24 MCH 30 pg (28-32) 03/20/20 04:24 MCHC 35 % (32-34) H 03/20/20 04:24 RDW 13.9 % (13.2-15.2) 03/20/20 04:24 Plt Count 188 K/mm3 (140-440) 03/20/20 04:24 Lymph % (Auto) 15.6 % (13.4-35.0) 03/20/20 04:24 [place] % (Auto) 6.9 % (0.0-7.3) 03/20/20 04:24 Eos % (Auto) 1.2 % (0.0-4.3) 03/20/20 04:24 Baso % (Auto) 0.4 % (0.0-1.8) 03/20/20 04:24 Lymph # (Auto) 1.4 K/mm3 (1.2-5.4) 03/20/20 04:24 [place] # (Auto) 0.6 K/mm3 (0.0-0.8) 03/20/20 04:24 Eos # (Auto) 0.1 K/mm3 (0.0-0.4) 03/20/20 04:24 Baso # (Auto) 0.0 K/mm3 (0.0-0.1) 03/20/20 04:24 Add Manual Diff Complete 03/19/20 17:27 Total Counted 100 03/19/20 17:27 Seg Neutrophils % 75.9 % (40.0-70.0) H 03/20/20 04:24 Seg Neuts % (Manual) 90.0 % (40.0-70.0) H 03/19/20 17:27 Band Neutrophils % 0 % 03/19/20 17:27 Lymphocytes % (Manual) 4.0 % (13.4-35.0) L 03/19/20 17:27 Reactive Lymphs % (Man) 0 % 03/19/20 17:27 Monocytes % (Manual) 6.0 % (0.0-7.3) 03/19/20 17:27 Eosinophils % (Manual) 0 % (0.0-4.3) 03/19/20 17: Basophils % (Manual) 0 % (0.0-1.8) 03/19/20 17:27 Metamyelocytes % 0 % 03/19/20 17:27 Myelocytes % 0 % 03/19/20 17: Promyelocytes % 0 % 03/19/20 17: Blast Cells % 0 % 03/19/20 17: Nucleated RBC % Not Reportable 03/19/20 17:27 Seg Neutrophils # 6.9 K/mm3 (1.8-7.7) 03/20/20 04:24 Seg Neutrophils # Man 10.9 K/mm3 (1.8-7.7) H 03/19/20 17:27 Band Neutrophils # 0.0 K/mm3 03/19/20 17:27 Lymphocytes # (Manual) 0.5 K/mm3 (1.2-5.4) L 03/19/20 17:27 Abs React Lymphs (Man) 0.0 K/mm3 03/19/20 17:27 Monocytes # (Manual) 0.7 K/mm3 (0.0-0.8) 03/19/20 17:27 Eosinophils # (Manual) 0.0 K/mm3 (0.0-0.4) 03/19/20 17:27 Basophils # (Manual) 0.0 K/mm3 (0.0-0.1) 03/19/20 17:27 Metamyelocytes # 0.0 K/mm3 03/19/20 17: Myelocytes # 0.0 K/mm3 03/19/20 17: Promyelocytes # 0.0 K/mm3 03/19/20 17:27 Blast Cells # 0.0 K/mm3 03/19/20 17:27 WBC Morphology Not Reportable 03/19/20 17:27 Hypersegmented Neuts Not Reportable 03/19/20 17:27 Hyposegmented Neuts Not Reportable 03/19/20 17:27 Hypogranular Neuts Not Reportable 03/19/20 17:27 Smudge Cells Not Reportable 03/19/20 17:27 Toxic Granulation Not Reportable 03/19/20 17:27 Toxic Vacuolation Not Reportable 03/19/20 17:27 Dohle Bodies Not Reportable 03/19/20 17:27 Pelger-Huet Anomaly Not Reportable 03/19/20 17:27 Frank Rods Not Reportable 03/19/20 17:27 Platelet Estimate Not Reportable 03/19/20 17:27 Clumped Platelets Not Reportable 03/19/20 17:27 Plt Clumps, EDTA Not Reportable 03/19/20 17:27 Large Platelets Not Reportable 03/19/20 17:27 Giant Platelets Not Reportable 03/19/20 17:27 Platelet Satelliting Not Reportable 03/19/20 17:27 Plt Morphology Comment Not Reportable 03/19/20 17:27 RBC Morphology Normal 03/19/20 17:27 Dimorphic RBCs Not Reportable 03/19/20 17:27 Polychromasia Not Reportable 03/19/20 17:27 Hypochromasia Not Reportable 03/19/20 17:27 Poikilocytosis Not Reportable 03/19/20 17:27 Anisocytosis Not Reportable 03/19/20 17:27 Microcytosis Not Reportable 03/19/20 17:27 Macrocytosis Not Reportable 03/19/20 17:27 Spherocytes Not Reportable 03/19/20 17:27 Pappenheimer Bodies Not Reportable 03/19/20 17:27 Sickle Cells Not Reportable 03/19/20 17:27 Target Cells Not Reportable 03/19/20 17:27 Tear Drop Cells Not Reportable 03/19/20 17:27 Ovalocytes Not Reportable 03/19/20 17:27 Helmet Cells Not Reportable 03/19/20 17:27 [place] Bodies Not Reportable 03/19/20 17:27 [place] Rings Not Reportable 03/19/20 17:27 [place] Cells Not Reportable 03/19/20 17:27 Bite Cells Not Reportable 03/19/20 17:27 Crenated Cell Not Reportable 03/19/20 17:27 Elliptocytes Not Reportable 03/19/20 17:27 Acanthocytes (Spur) Not Reportable 03/19/20 17:27 Rouleaux Not Reportable 03/19/20 17:27 Hemoglobin C Crystals Not Reportable 03/19/20 17:27 Schistocytes Not Reportable 03/19/20 17:27 Malaria parasites Not Reportable 03/19/20 17:27 Jones Bodies Not Reportable 03/19/20 17:27 Hem Pathologist Commnt No 03/19/20 17:27 PT 13.3 Sec. (12.2-14.9) 03/19/20 17:27 INR 1.00 (0.87-1.13) 03/19/20 17:27 APTT 21.8 Sec. (24.2-36.6) L 03/19/20 17:27 Sodium 137 mmol/L (137-145) 03/20/20 04:24 Potassium 4.0 mmol/L (3.6-5.0) 03/20/20 04:24 Chloride 102.8 mmol/L (98-107) 03/20/20 04:24 Carbon Dioxide 27 mmol/L (22-30) 03/20/20 04:24 Anion Gap 11 mmol/L 03/20/20 04:24 BUN 17 mg/dL (9-20) 03/20/20 04:24 Creatinine 1.0 mg/dL (0.8-1.3) 03/20/20 04:24 Estimated GFR > 60 ml/min 03/20/20 04:24 BUN/Creatinine Ratio 17 % 03/20/20 04:24 Glucose 108 mg/dL (75-100) H 03/20/20 04:24 Hemoglobin A1c 5.3 % (4-6) 03/20/20 04:24 Calcium 9.0 mg/dL (8.4-10.2) 03/20/20 04:24 Total Bilirubin 0.40 mg/dL (0.1-1.2) 03/20/20 04:24 AST 13 units/L (5-40) 03/20/20 04:24 ALT 7 units/L (7-56) 03/20/20 04:24 Alkaline Phosphatase 71 units/L (35-129) 03/20/20 04:24 Total Protein 6.6 g/dL (6.3-8.2) 03/20/20 04:24 Albumin 3.6 g/dL (3.9-5) L 03/20/20 04:24 Albumin/Globulin Ratio 1.2 % 03/20/20 04:24 Clarke/IV: Voiding Method Condom Catheter IV Catheter Type [Right Wrist] Peripheral IV IV Catheter Type [Left Forearm Peripheral IV ] Active Medications - Current Medications Current Medications: Generic Name Dose Route Start Last Admin Trade Name Freq PRN Reason Stop Dose Admin Acetaminophen 650 mg 03/19/20 22:04 Tylenol PO Q4H PRN Pain MILD(1-3)/Fever >100.5/MAYEN Albuterol 2.5 mg 03/19/20 22:20 Proventil IH Q4HRT PRN Shortness Of Breath Arformoterol Tartrate 15 mcg 03/20/20 08:00 03/23/20 17:43 Brovana Nebu IH 15 mcg Q12HRT DIPIKA Administration Bisacodyl 5 mg 03/19/20 21:56 Dulcolax PO DAILY PRN Constipation Budesonide 0.5 mg 03/20/20 08:00 03/23/20 17:43 Pulmicort IH 0.5 mg Q12HRT DIPIKA Administration Enoxaparin Sodium 40 mg 03/21/20 10:00 03/23/20 09:18 Enoxaparin SUB-Q 40 mg QDAY DIPIKA Administration Famotidine 20 mg 03/21/20 10:00 03/23/20 09:17 Pepcid PO 20 mg BID DIPIKA Administration Hydralazine HCl 50 mg 03/22/20 17:11 03/23/20 16:44 Apresoline PO 50 mg Q8H DIPIKA Administration Hydromorphone HCl 1 mg 03/19/20 22:04 03/22/20 22:21 Dilaudid IV 1 mg Q3H PRN Administration Pain , Severe (7-10) Sodium Chloride 1,000 mls @ 75 mls/hr 03/19/20 22:15 03/23/20 01:35 Nacl 0.9% 1000 Ml IV Infused DIRECT DIPIKA Infusion Labetalol HCl 10 mg 03/20/20 14:20 03/22/20 16:59 Labetalol IV 10 mg Q4H PRN Administration Hypertension Magnesium Oxide 400 mg 03/20/20 10:00 03/23/20 09:17 Mag-Ox PO 400 mg QDAY DIPIKA Administration Miscellaneous Medication 4 each 03/21/20 10:00 03/23/20 09:19 Non-Formulary PO 4 each DAILY DIPIKA Administration Morphine Sulfate 4 mg 03/20/20 15:13 03/23/20 06:58 Morphine IV 4 mg Q4H PRN Administration Pain , Severe (7-10) Nifedipine 30 mg 03/22/20 22:00 03/23/20 09:17 Procardia Xl PO 30 mg Q12HR DIPIKA Administration Ondansetron HCl 4 mg 03/19/20 22:04 03/22/20 22:20 Zofran IV 4 mg Q8H PRN Administration Nausea And Vomiting Oxycodone/Acetaminophen 1 tab 03/20/20 15:13 03/22/20 16:59 Percocet 5/325 PO 1 tab Q6H PRN Administration Pain, Moderate (4-6) Senna/Docusate Sodium 1 tab 03/20/20 10:00 03/23/20 09:17 Senokot S PO 1 tab DAILY DIPIKA Administration Sodium Chloride 10 ml 03/20/20 10:00 03/23/20 09:18 Sodium Chloride Flush Syringe 10 Ml IV 10 ml BID DIPIKA Administration Sodium Chloride 10 ml 03/19/20 22:04 Sodium Chloride Flush Syringe 10 Ml IV PRN PRN LINE FLUSH Tamsulosin HCl 0.4 mg 03/19/20 22:00 03/22/20 22:20 Flomax PO 0.4 mg QHS DIPIKA Administration Nutrition/Malnutrition Assess - Dietary Evaluation Nutrition/Malnutrition Findings: Nutrition Notes Start: 03/22/20 11:13 Freq: Status: Active Protocol: Document 03/22/20 11:13 LM (Rec: 03/22/20 11:48 LM [id number]) Nutrition Notes Need for Assessment generated from: Low BMI Initial or Follow up Assessment Current Diagnosis COPD Other Pertinent Diagnosis Femoral neck fx, L hip surgical wound, fall, BPH, hx prostate CA Current Diet Regular diet Labs/Tests Reviewed Pertinent Medications Reviewed Height 6 ft 3 in Weight 65.1 kg [place] Body Weight (kg) 89.09 BMI 17.9 Weight Status Underweight Subjective/Other Information Low BMI screen. Pt not in room at tiem of visit. Pt has 50- 100% intakes in chart. Burn Absent Trauma Absent Minimum of two criteria No physical signs of malnutrition #1 Nutrition Diagnosis Increased nutrient needs ( specify in comment below) Comments: Protein Etiology Wound healing As Evidenced by Signs and Symptoms pt with L hip surgical wound Is patient on ventilator? No Is Patient Ambulatory and/or Out of Bed No REE-([place]-confined to bed) 1766.460 Kcal/Kg value to use for calculation 32 Approximate Energy Requirements Using 2083 kcal/Kg Calculation Used for Recommendations Kcal/kg Additional Notes Protein: 81- 98g (1.25-1.5g/kg ) Fluid: 1ml/kcal Nutrition Intervention Change Diet Order: continue Goal #1 Meet at least 75% energy and protein needs Goal #2 Wound healing Anticipated Discharge Needs: Regular Follow-Up By: 03/24/20 Additional Comments F/U for intakes, full assessment
[2020-03-23] MEDS: TAMSULOSIN 0.4 MG CAP PO SCH (21:31)
[2020-03-24] MEDS: hydrALAZINE 25 MG TAB PO SCH ×3 (00:28→18:25)
[2020-03-24] MEDS: ARFORMOTEROL 15 MCG/2 ML NEBU IH SCH ×2 (10:43→21:35)
[2020-03-24] MEDS: BUDESONIDE 0.5 MG/2 ML NEBU IH SCH ×2 (10:43→21:35)
[2020-03-24] MEDS: oxyCODONE /ACETAMINOPHEN 5-325MG TAB PO PRN (11:45)
[2020-03-24] MEDS: NIFEdipine XL 30 MG TAB PO SCH ×2 (11:51→22:14)
[2020-03-24] MEDS: SENNOSIDES/DOCUSATE SODIUM 8.6/50 MG TAB PO SCH (11:52)
[2020-03-24] MEDS: MAGNESIUM OXIDE 400 MG TAB PO SCH (11:53)
[2020-03-24] MEDS: FAMOTIDINE 20 MG TAB PO SCH ×2 (11:54→22:14)
[2020-03-24] MEDS: ERLEADA 60 MG PO SCH (11:54)
[2020-03-24] MEDS: ENOXAPARIN 40 MG/0.4 ML INJ SUB-Q SCH (12:48)
--- NOTE | 2020-03-24 18:36 | Progress Note ---
Assessment and Plan Assessment and plan: s/p left hip bipolar hemiarthroplasty --Left femur neck fracture Current Visit: Yes Status: Acute Plan to address problem: s/p left hip bipolar hemiarthroplasty Postop care per Ortho Pain medications, PT OT Follow PT OT rehab evaluation recommendation DC planning per case management -- BPH (benign prostatic hyperplasia) Current Visit: Yes Status: Chronic Plan to address problem: Continue Flomax -- History of prostate cancer Current Visit: Yes Status: Chronic Plan to address problem: Continue current medications -- COPD (chronic obstructive pulmonary disease) Current Visit: Yes Status: Chronic Plan to address problem: Stable on current bronchodilators --Hypertension; Current Visit: Yes Status: Chronic Plan to address problem: Well controlled on nifedipine and hydralazine PRN IV labetalol -- DVT prophylaxis Current Visit: Yes Status: Acute . Plan to address problem: On SCDs and GI prophylaxis Continue PT OT rehab DC planning per case management Discharge home with home PT when stable Plan of care reviewed with the patient and her nurse 03/23; patient is tolerating physical therapy occupational therapy Discharge planning per case management 03/24; DC planning per case management History Interval history: I have seen and examined the patient at the bedside Patient feels better tolerated the physical therapy Wants to go home No new complaints Vital signs noted Hospitalist Physical - Constitutional Vitals: Temp Pulse Resp BP Pulse Ox 97.3 F L 90 22 132/70 95 03/24/20 15:08 03/24/20 15:08 03/24/20 15:08 03/24/20 15:08 03/24/20 15:08 General appearance: Present: no acute distress, cachectic, other (Low BMI) - EENT Eyes: Present: PERRL, EOM intact - Neck Neck: Present: supple, normal ROM - Respiratory Respiratory effort: normal Respiratory: bilateral: diminished, negative: rales, rhonchi, wheezing - Cardiovascular Rhythm: regular Heart Sounds: Present: S1 & S2 - Extremities Extremities: no ischemia, No edema - Abdominal General gastrointestinal: soft, non-tender, non-distended, normal bowel sounds - Integumentary Integumentary: Present: clear, warm - Psychiatric Psychiatric: appropriate mood/affect, cooperative - Neurologic Neurologic: moves all extremities Results - Labs CBC & Chem 7: 03/21/20 05:20 03/20/20 04:24 Labs: Laboratory Last Values WBC 9.1 K/mm3 (4.5-11.0) 03/20/20 04:24 RBC 3.75 M/mm3 (3.65-5.03) 03/20/20 04:24 Hgb 10.1 gm/dl (11.8-15.2) L 03/21/20 05:20 Hct 29.5 % (35.5-45.6) L 03/21/20 05:20 MCV 88 fl (84-94) 03/20/20 04:24 MCH 30 pg (28-32) 03/20/20 04:24 MCHC 35 % (32-34) H 03/20/20 04:24 RDW 13.9 % (13.2-15.2) 03/20/20 04:24 Plt Count 188 K/mm3 (140-440) 03/20/20 04:24 Lymph % (Auto) 15.6 % (13.4-35.0) 03/20/20 04:24 [place] % (Auto) 6.9 % (0.0-7.3) 03/20/20 04:24 Eos % (Auto) 1.2 % (0.0-4.3) 03/20/20 04:24 Baso % (Auto) 0.4 % (0.0-1.8) 03/20/20 04:24 Lymph # (Auto) 1.4 K/mm3 (1.2-5.4) 03/20/20 04:24 [place] # (Auto) 0.6 K/mm3 (0.0-0.8) 03/20/20 04:24 Eos # (Auto) 0.1 K/mm3 (0.0-0.4) 03/20/20 04:24 Baso # (Auto) 0.0 K/mm3 (0.0-0.1) 03/20/20 04:24 Add Manual Diff Complete 03/19/20 17:27 Total Counted 100 03/19/20 17:27 Seg Neutrophils % 75.9 % (40.0-70.0) H 03/20/20 04:24 Seg Neuts % (Manual) 90.0 % (40.0-70.0) H 03/19/20 17:27 Band Neutrophils % 0 % 03/19/20 17:27 Lymphocytes % (Manual) 4.0 % (13.4-35.0) L 03/19/20 17:27 Reactive Lymphs % (Man) 0 % 03/19/20 17:27 Monocytes % (Manual) 6.0 % (0.0-7.3) 03/19/20 17:27 Eosinophils % (Manual) 0 % (0.0-4.3) 03/19/20 17: Basophils % (Manual) 0 % (0.0-1.8) 03/19/20 17:27 Metamyelocytes % 0 % 03/19/20 17:27 Myelocytes % 0 % 03/19/20 17: Promyelocytes % 0 % 03/19/20 17: Blast Cells % 0 % 03/19/20 17: Nucleated RBC % Not Reportable 03/19/20 17:27 Seg Neutrophils # 6.9 K/mm3 (1.8-7.7) 03/20/20 04:24 Seg Neutrophils # Man 10.9 K/mm3 (1.8-7.7) H 03/19/20 17:27 Band Neutrophils # 0.0 K/mm3 03/19/20 17:27 Lymphocytes # (Manual) 0.5 K/mm3 (1.2-5.4) L 03/19/20 17:27 Abs React Lymphs (Man) 0.0 K/mm3 03/19/20 17:27 Monocytes # (Manual) 0.7 K/mm3 (0.0-0.8) 03/19/20 17:27 Eosinophils # (Manual) 0.0 K/mm3 (0.0-0.4) 03/19/20 17:27 Basophils # (Manual) 0.0 K/mm3 (0.0-0.1) 03/19/20 17:27 Metamyelocytes # 0.0 K/mm3 03/19/20 17: Myelocytes # 0.0 K/mm3 03/19/20 17: Promyelocytes # 0.0 K/mm3 03/19/20 17:27 Blast Cells # 0.0 K/mm3 03/19/20 17:27 WBC Morphology Not Reportable 03/19/20 17:27 Hypersegmented Neuts Not Reportable 03/19/20 17:27 Hyposegmented Neuts Not Reportable 03/19/20 17:27 Hypogranular Neuts Not Reportable 03/19/20 17:27 Smudge Cells Not Reportable 03/19/20 17:27 Toxic Granulation Not Reportable 03/19/20 17:27 Toxic Vacuolation Not Reportable 03/19/20 17:27 Dohle Bodies Not Reportable 03/19/20 17:27 Pelger-Huet Anomaly Not Reportable 03/19/20 17:27 Frank Rods Not Reportable 03/19/20 17:27 Platelet Estimate Not Reportable 03/19/20 17:27 Clumped Platelets Not Reportable 03/19/20 17:27 Plt Clumps, EDTA Not Reportable 03/19/20 17:27 Large Platelets Not Reportable 03/19/20 17:27 Giant Platelets Not Reportable 03/19/20 17:27 Platelet Satelliting Not Reportable 03/19/20 17:27 Plt Morphology Comment Not Reportable 03/19/20 17:27 RBC Morphology Normal 03/19/20 17:27 Dimorphic RBCs Not Reportable 03/19/20 17:27 Polychromasia Not Reportable 03/19/20 17:27 Hypochromasia Not Reportable 03/19/20 17:27 Poikilocytosis Not Reportable 03/19/20 17:27 Anisocytosis Not Reportable 03/19/20 17:27 Microcytosis Not Reportable 03/19/20 17:27 Macrocytosis Not Reportable 03/19/20 17:27 Spherocytes Not Reportable 03/19/20 17:27 Pappenheimer Bodies Not Reportable 03/19/20 17:27 Sickle Cells Not Reportable 03/19/20 17:27 Target Cells Not Reportable 03/19/20 17:27 Tear Drop Cells Not Reportable 03/19/20 17:27 Ovalocytes Not Reportable 03/19/20 17:27 Helmet Cells Not Reportable 03/19/20 17:27 [place] Bodies Not Reportable 03/19/20 17:27 [place] Rings Not Reportable 03/19/20 17:27 [place]y Cells Not Reportable 03/19/20 17:27 Bite Cells Not Reportable 03/19/20 17:27 Crenated Cell Not Reportable 03/19/20 17:27 Elliptocytes Not Reportable 03/19/20 17:27 Acanthocytes (Spur) Not Reportable 03/19/20 17:27 Rouleaux Not Reportable 03/19/20 17:27 Hemoglobin C Crystals Not Reportable 03/19/20 17:27 Schistocytes Not Reportable 03/19/20 17:27 Malaria parasites Not Reportable 03/19/20 17:27 Jones Bodies Not Reportable 03/19/20 17:27 Hem Pathologist Commnt No 03/19/20 17:27 PT 13.3 Sec. (12.2-14.9) 03/19/20 17:27 INR 1.00 (0.87-1.13) 03/19/20 17:27 APTT 21.8 Sec. (24.2-36.6) L 03/19/20 17:27 Sodium 137 mmol/L (137-145) 03/20/20 04:24 Potassium 4.0 mmol/L (3.6-5.0) 03/20/20 04:24 Chloride 102.8 mmol/L (98-107) 03/20/20 04:24 Carbon Dioxide 27 mmol/L (22-30) 03/20/20 04:24 Anion Gap 11 mmol/L 03/20/20 04:24 BUN 17 mg/dL (9-20) 03/20/20 04:24 Creatinine 1.0 mg/dL (0.8-1.3) 03/20/20 04:24 Estimated GFR > 60 ml/min 03/20/20 04:24 BUN/Creatinine Ratio 17 % 03/20/20 04:24 Glucose 108 mg/dL (75-100) H 03/20/20 04:24 Hemoglobin A1c 5.3 % (4-6) 03/20/20 04:24 Calcium 9.0 mg/dL (8.4-10.2) 03/20/20 04:24 Total Bilirubin 0.40 mg/dL (0.1-1.2) 03/20/20 04:24 AST 13 units/L (5-40) 03/20/20 04:24 ALT 7 units/L (7-56) 03/20/20 04:24 Alkaline Phosphatase 71 units/L (35-129) 03/20/20 04:24 Total Protein 6.6 g/dL (6.3-8.2) 03/20/20 04:24 Albumin 3.6 g/dL (3.9-5) L 03/20/20 04:24 Albumin/Globulin Ratio 1.2 % 03/20/20 04:24 Clarke/IV: Voiding Method Condom Catheter IV Catheter Type [Right Wrist] Peripheral IV IV Catheter Type [Left Forearm Peripheral IV ] Active Medications - Current Medications Current Medications: Generic Name Dose Route Start Last Admin Trade Name Freq PRN Reason Stop Dose Admin Acetaminophen 650 mg 03/19/20 22:04 Tylenol PO Q4H PRN Pain MILD(1-3)/Fever >100.5/MAYEN Albuterol 2.5 mg 03/19/20 22:20 Proventil IH Q4HRT PRN Shortness Of Breath Arformoterol Tartrate 15 mcg 03/20/20 08:00 03/24/20 10:43 Brovana Nebu IH 15 mcg Q12HRT DIPIKA Administration Bisacodyl 5 mg 03/19/20 21:56 Dulcolax PO DAILY PRN Constipation Budesonide 0.5 mg 03/20/20 08:00 03/24/20 10:43 Pulmicort IH 0.5 mg Q12HRT DIPIKA Administration Enoxaparin Sodium 40 mg 03/21/20 10:00 03/24/20 12:48 Enoxaparin SUB-Q 40 mg QDAY DIPIKA Administration Famotidine 20 mg 03/21/20 10:00 03/24/20 11:54 Pepcid PO 20 mg BID DIPIKA Administration Hydralazine HCl 50 mg 03/22/20 17:11 03/24/20 00:28 Apresoline PO 50 mg Q8H DIPIKA Administration Hydromorphone HCl 1 mg 03/19/20 22:04 03/22/20 22:21 Dilaudid IV 1 mg Q3H PRN Administration Pain , Severe (7-10) Sodium Chloride 1,000 mls @ 75 mls/hr 03/19/20 22:15 03/23/20 01:35 Nacl 0.9% 1000 Ml IV Infused DIRECT DIPIKA Infusion Labetalol HCl 10 mg 03/20/20 14:20 03/22/20 16:59 Labetalol IV 10 mg Q4H PRN Administration Hypertension Magnesium Oxide 400 mg 03/20/20 10:00 03/24/20 11:53 Mag-Ox PO 400 mg QDAY DIPIKA Administration Miscellaneous Medication 4 each 03/21/20 10:00 03/24/20 11:54 Non-Formulary PO 4 each DAILY DIPIKA Administration Morphine Sulfate 4 mg 03/20/20 15:13 03/23/20 06:58 Morphine IV 4 mg Q4H PRN Administration Pain , Severe (7-10) Nifedipine 30 mg 03/22/20 22:00 03/24/20 11:51 Procardia Xl PO 30 mg Q12HR DIPIKA Administration Ondansetron HCl 4 mg 03/19/20 22:04 03/22/20 22:20 Zofran IV 4 mg Q8H PRN Administration Nausea And Vomiting Oxycodone/Acetaminophen 1 tab 03/20/20 15:13 03/24/20 11:45 Percocet 5/325 PO 1 tab Q6H PRN Administration Pain, Moderate (4-6) Senna/Docusate Sodium 1 tab 03/20/20 10:00 03/24/20 11:52 Senokot S PO 1 tab DAILY DIPIKA Administration Sodium Chloride 10 ml 03/20/20 10:00 03/24/20 13:02 Sodium Chloride Flush Syringe 10 Ml IV 10 ml BID DIPIKA Administration Sodium Chloride 10 ml 03/19/20 22:04 Sodium Chloride Flush Syringe 10 Ml IV PRN PRN LINE FLUSH Tamsulosin HCl 0.4 mg 03/19/20 22:00 03/23/20 21:31 Flomax PO 0.4 mg QHS DIPIKA Administration Nutrition/Malnutrition Assess - Dietary Evaluation Nutrition/Malnutrition Findings: Nutrition Notes Start: 03/22/20 11:13 Freq: Status: Active Protocol: Document 03/24/20 13:34 NANDO (Rec: 03/24/20 13:38 NANDO [id number]) Co-Sign 03/24/20 13:34 LM Nutrition Notes Initial or Follow up Reassessment Current Diagnosis COPD Other Pertinent Diagnosis Femoral neck fx, L hip surgical wound, fall, BPH, hx prostate CA Current Diet Regular diet Labs/Tests Reviewed Pertinent Medications Reviewed Height 6 ft 3 in Weight 65.1 kg [place] Body Weight (kg) 89.09 BMI 17.9 Weight Status Underweight Subjective/Other Information F/u intakes and full assessment. Per pt, appetite and intakes are good. Noted missing teeth but pt does not have any difficulty chewing. Pt was eating lunch at time of visit. Per pt, no changes in weight for at least 1 year. When asked about intakes, pt said "fine, fine" and looked to the TV. Burn Absent Trauma Absent Minimum of two criteria No physical signs of malnutrition #1 Nutrition Diagnosis Increased nutrient needs ( specify in comment below) Diagnosis Progress(for reassessment Continues documentation) Is patient on ventilator? No Is Patient Ambulatory and/or Out of Bed No REE-([facility]-confined to bed) 1766.460 Kcal/Kg value to use for calculation 32 Approximate Energy Requirements Using 3 kcal/Kg Calculation Used for Recommendations Kcal/kg Additional Notes Protein: 81- 98g (1.25-1.5g/kg ) Fluid: 1ml/kcal Nutrition Intervention Change Diet Order: continue Goal #1 Meet at least 75% energy and protein needs Goal #2 Wound healing Anticipated Discharge Needs: Regular Follow-Up By: 03/31/20 Additional Comments F/u stable intakes
[2020-03-24] MEDS: TAMSULOSIN 0.4 MG CAP PO SCH (22:14)
[2020-03-25] MEDS: hydrALAZINE 25 MG TAB PO SCH ×3 (00:10→18:47)
[2020-03-25] MEDS: NIFEdipine XL 30 MG TAB PO SCH (09:14)
[2020-03-25] MEDS: SENNOSIDES/DOCUSATE SODIUM 8.6/50 MG TAB PO SCH (09:14)
[2020-03-25] MEDS: ENOXAPARIN 40 MG/0.4 ML INJ SUB-Q SCH (09:14)
[2020-03-25] MEDS: FAMOTIDINE 20 MG TAB PO SCH (09:14)
[2020-03-25] MEDS: MAGNESIUM OXIDE 400 MG TAB PO SCH (09:14)
[2020-03-25] MEDS: ERLEADA 60 MG PO SCH (09:15)
[2020-03-25] MEDS: oxyCODONE /ACETAMINOPHEN 5-325MG TAB PO PRN ×2 (09:19→18:47)
[2020-03-25] MEDS: ARFORMOTEROL 15 MCG/2 ML NEBU IH SCH (09:27)
[2020-03-25] MEDS: BUDESONIDE 0.5 MG/2 ML NEBU IH SCH (09:27)
--- NOTE | 2020-03-25 12:50 | Discharge Summary ---
Providers - Providers Date of Admission: 03/19/20 19:50 Date of discharge: 03/25/20 Attending physician: ÁNGEL PRASAD 03/19/20 Consult to Case Management [CONS] Routine Services Needed at Discharge: Home Health Services Physical Therapy Notified:: cm notified Comment:: Subacute rehab 03/19/20 18:50 Consult to Physician [CONS] Urgent Comment: Consulting Provider: RAMAN PIRES Physician Instructions: Reason For Exam: left femoral neck fracture 03/20/20 15:18 Physical Therapy Evaluation and Treat [CONS] Routine Comment: Reason For Exam: Postop evaluation Weight bearing status?: Full wt bearing Assistive devices?: Yes If so list: Walker 03/22/20 10:35 Occupational Therapy Evaluate and Treat [CONS] Routine Comment: Reason For Exam: evaluate ADL's Primary care physician: DMITRIY SHORT Hospitalization Reason for admission: s/p fall,Lt hip fracture Condition: Stable Pertinent studies: Hip fracture cxr Procedures: s/p left hip bipolar hemiarthroplasty Hospital course: Left hip pain, Lt hip fracture after ground-level fall 74-year-old male patient with history of COPD BPH and prostate cancer was admitted with h/o fall, left hip fracture. Evaluated by orthopedic surgeon and underwent s/p left hip bipolar hemiarthroplasty. Patient had uncomplicated postop stay. Received physical therapy occupational therapy and rehabilitation. Today patient is comfortable no new complaints vital signs stable Tolerating physical therapy, Patient is being discharged home with home health home PT and OT. Stable at discharge. Discharge diagnosis --Left femur neck fracture Current Visit: Yes Status: Acute Plan to address problem: s/p left hip bipolar hemiarthroplasty -- BPH (benign prostatic hyperplasia) Current Visit: Yes Status: Chronic Plan to address problem: Continue Flomax -- History of prostate cancer Current Visit: Yes Status: Chronic Plan to address problem: Continue current medications -- COPD (chronic obstructive pulmonary disease) Current Visit: Yes Status: Chronic Plan to address problem: Stable on current bronchodilators --Hypertension; Current Visit: Yes Status: Chronic Plan to address problem: Well controlled on nifedipine and hydralazine PRN IV labetalol -- DVT prophylaxis Current Visit: Yes Status: Acute . Plan to address problem: On SCDs and GI prophylaxis Stable at discharge Disposition: [id number] HOME UNDER HOME [facility] Time spent for discharge: 35 min Core Measure Documentation - Palliative Care Palliative Care/ Comfort Measures: Not Applicable - Core Measures Any of the following diagnoses?: none Exam - Constitutional Vitals: Temp Pulse Resp BP Pulse Ox 98.1 F 96 H 19 130/72 98 03/25/20 11:51 03/25/20 11:51 03/25/20 11:51 03/25/20 11:51 03/25/20 11:51 General appearance: Present: no acute distress, well-nourished - EENT Eyes: Present: PERRL, EOM intact - Neck Neck: Present: supple, normal ROM - Respiratory Respiratory effort: normal Respiratory: bilateral: diminished, negative: rales, rhonchi, wheezing - Cardiovascular Rhythm: regular Heart Sounds: Present: S1 & S2 - Extremities Extremities: no ischemia, No edema, normal temperature - Abdominal General gastrointestinal: Present: soft, non-tender, non-distended, normal bowel sounds - Integumentary Integumentary: Present: clear, warm - Musculoskeletal Musculoskeletal: strength equal bilaterally, generalized weakness - Psychiatric Psychiatric: appropriate mood/affect - Neurologic Neurologic: moves all extremities Plan Activity: advance as tolerated, fall precautions Diet: regular Special Instructions: physical therapy Additional Instructions: If you have worsening symptoms contact MD or go to emergency room as needed. Fall precautions. Home physical therapy. Follow-up with orthopedics in 2 weeks Follow up with: DMITRIY SHORT III, APRN-BART [Primary Care Provider] - 7 Days RAMAN PIRES MD [Staff Physician] - 14 Days Prescriptions: hydrALAZINE [Apresoline TAB] 50 mg PO Q8H #90 tablet bisacodyL [Dulcolax tab] 5 mg PO DAILY PRN #14 PRN Reason: Constipation Apixaban [Eliquis] 5 mg PO DAILY #30 tablet Famotidine [Pepcid] 20 mg PO BID #30 tablet oxyCODONE /ACETAMINOPHEN [Percocet 5/325 mg] 1 tab PO Q12H PRN #20 tablet PRN Reason: Pain, Moderate (4-6) NIFEdipine XL [Procardia Xl] 30 mg PO Q12HR #60 tablet
[2020-03-25 16:12] VITALS: BP 153/76
== END 2020-03-25 19:35 | disposition home health service (06) | DRG 470 ==
LOC: ED 16:45 → 3B-SURG 19:50
PROVIDERS: ADMIT Internal Medicine; ATTEND Internal Medicine
PROC: 0SRS0JZ Replacement of Left Hip Joint, Femoral Surface with Synthetic Substitute, Open Approach (ICD-10-PCS; principal; 2020-03-20)
DX: S72.002A Fracture of unspecified part of neck of left femur, initial encounter for closed fracture (principal); J44.9 Chronic obstructive pulmonary disease, unspecified; I10 Essential (primary) hypertension; Z87.891 Personal history of nicotine dependence; N40.0 Benign prostatic hyperplasia without lower urinary tract symptoms; Z85.46 Personal history of malignant neoplasm of prostate; R64 Cachexia; Z68.1 Body mass index [BMI] 19.9 or less, adult; W01.0XXA Fall on same level from slipping, tripping and stumbling without subsequent striking against object, initial encounter; Y93.89 Activity, other specified; Y92.524 Gas station as the place of occurrence of the external cause; Y99.0 Civilian activity done for income or pay
CPT/HCPCS: 36415; 71045; 80048; 80053; 83036; 85007; 85014; 85018; 85025; 85610; 85730; 94640; 94760; 96374; 96375; G0378; A4217; C1776; J0690; J1100; J1170; J1644; J1650; J1885; J2270; J2405; J2704; J2710; J3010; J3246; J7030; J7050

== ENCOUNTER 2020-06-17 08:54 | Outpatient (CLI) | payer MEDICARE ==
--- NOTE | 2020-06-17 10:13 | XRay Report ---
LEFT HIP 2 VIEWS INDICATION / CLINICAL INFORMATION: LEFT HIP PAIN COMPARISON: Left hip series from 03/21/2020. FINDINGS: BONES and JOINT(S): No acute fracture or subluxation. Intact left hip arthroplasty in good position. SOFT TISSUES: No significant abnormality. ADDITIONAL FINDINGS: None. IMPRESSION: 1. No acute findings. 2. Unchanged left hip arthroplasty. Signer Name: Frandy Contreras MD Signed: 06/17/2020 10:08 AM Workstation Name: [id number]
== END 2020-06-17 08:55 | disposition home or self-care (01) ==
LOC: XRAY 08:54
PROVIDERS: ATTEND Orthopaedic Surgery
DX: S72.002D Fracture of unspecified part of neck of left femur, subsequent encounter for closed fracture with routine healing (principal); X58.XXXD Exposure to other specified factors, subsequent encounter; Z96.642 Presence of left artificial hip joint